=== PATIENT | female | born 1995 | race Caucasian/White ===

== ENCOUNTER 2024-08-30 19:27 | Emergency (ER) | payer OTHER, SELFPAY ==
[2024-08-30 19:31] VITALS: BP 140/96; PULSE 86; TEMP 36.7; O2SAT 100; BMI 36.8
--- NOTE | 2024-08-30 19:36 | PC.NURSE ---
States feels a bump on her upper/outer left gum line. Nothing noted with inspection
--- NOTE | 2024-08-30 19:38 | ED.DENTAL1 ---
HPI - Dental/Oral General Chief complaint: Dental/Oral Stated complaint: MOUTH PAIN Time Seen by Provider: 08/30/24 19:34 Source: patient Mode of arrival: walk-in Limitations: no limitations History of Present Illness HPI Narrative: dental pain past week. No obvious swelling. No problem swallowing. No fever or nausea Related Data Home Medications ?Medication ?Instructions ?Recorded ?Confirmed No Known Home Medications 08/30/24 08/30/24 Allergies Allergy/AdvReac Type Severity Reaction Status Date / Time No Known Drug Allergies Allergy Verified 08/30/24 19:34 Review of Systems ROS Status of ROS 10 or more systems reviewed and unremarkable except as noted in history and below PFSH PFSH Social History Little interest or pleasure in doing things: not at all Feeling down, depressed, or hopeless: not at all Exam Constitutional Vital Signs, click to edit/add: Last Vital Signs Temp 98.0 F 08/30/24 19:31 Pulse 86 08/30/24 19:31 Resp 16 08/30/24 19:31 BP 140/96 H 08/30/24 19:31 Pulse Ox 100 08/30/24 19:31 O2 Del Method Room Air 08/30/24 19:31 Common normals: no apparent distress, average body habitus, oriented x3, no limitations, healthy appearing, alert and well nourished [facility] Common normals: normocephalic and head/scalp atraumatic Other: focal area of swelling left upper posterior molar. site focally tender and reproduces symptoms Eye Common normals: EOMs intact bilaterally Respiratory Common normals: normal respiratory effort, no retractions, no use of accessory muscles and clear to auscultation bilaterally Cardio Common normals: regular rate, regular rhythm, S1 normal heart sound and S2 normal heart sound Extremity Common normals: normal to inspection and full ROM Neuro Common normals: oriented x3, CN's II-XII intact bilaterally, moves all extremities and no focal motor deficits Psych Appearance: grossly normal Course Vital Signs Vital signs: Vital Signs Temperature 98.0 F 08/30/24 19:31 Pulse Rate 86 08/30/24 19:31 Respiratory Rate 16 08/30/24 19:31 Blood Pressure 140/96 H 08/30/24 19:31 Pulse Oximetry 100 08/30/24 19:31 Oxygen Delivery Method Room Air 08/30/24 19:31 Temperature 98.0 F 08/30/24 19:31 Pulse Rate 86 08/30/24 19:31 Respiratory Rate 16 08/30/24 19:31 Blood Pressure 140/96 H 08/30/24 19:31 Pulse Oximetry 100 08/30/24 19:31 Oxygen Delivery Method Room Air 08/30/24 19:31 MDM - Dental/Oral MDM Narrative Medical decision making narrative: patient is stable clinically. Presents with focal area of early abscess left upper posterior molar. Patient informed of the findings and treatment plan. Given dose of Augmentin and discharged with a prescription of Augmentin Discharge Plan Discharge Chief Complaint: Dental/Oral Clinical Impression: Dental abscess Patient Disposition: Home, Self-Care Prescriptions / Home Meds: No Action No Known Home Medications Print Language: Macedonian Instructions: Dental Abscess (ED) Additional Instructions: follow up with your dentist later this week or next week. Use ibuprofen for pain Referrals: Physician,Non-Staff, MD [Primary Care Provider] - 1 week
[2024-08-30] MEDS: AMOXICILLIN/POT CLAV 875-125 MG TABLET 1 TAB PO (19:57)
[2024-08-30] MEDS: LIDOCAINE VISCOUS 2% 15 ML SOLUTION PO (19:57)
== END 2024-08-30 20:01 | disposition home or self-care (01) ==
PROVIDERS: Emergency Provider Internal Medicine
DX: K04.7 Periapical abscess without sinus (principal)
CPT/HCPCS: 99283

== ENCOUNTER 2025-01-03 12:51 | Outpatient (OUT) | payer OTHER, SELFPAY ==
--- OUTSIDE RECORDS SUMMARY | 2025-01-03 12:53 | XMS_ITS | Encounter Summary ---
Author Organization [facility] Address [id number] [address] [place] [address] Care Team Providers Care Biomedical Manager Name Role Phone No Pcp, No Pcp Primary Care Provider Unavailabl e Reason for Visit * Reason Onset Date Comments Med Refill 06/21/2019 Encounter Details Date Type Department Care Team (Late st Contact Info) Description 06/21/2019 Refill [facility] [address] [place] [address] [place] [phone] Gato Sanchez CMA Social History Tobacco Use Types Packs/Day Years Used Date Smoking Tobacco: Never Smokeless Tobacco: Never Alcohol Use Standard Drinks/Week Comments No 0 (1 standard drink = 0.6 oz pur e alcohol) Social Connection and Isolation Panel [NHANES] A nswer Date Recorded Frequency of Communication with Friends and Fami ly Three times a week 01/19/2019 Frequency of Social Gatherin gs with Friends and Family Twice a week 01/19/2019 Attends Faith Services Never 01/19 Active Member of Clubs or Organizations No 01/19/2019 Attends Club or Organization Meetings Never 01/19/2019 Marital Status Never 01/19/2019 AUDIT-C Answer Date Recorded Frequency of Alcohol Consumption Never 01/19/2019 Average Number of Drinks 1 or 2 019 Frequency of Binge Drinking Never 12/23 Overall Financial Resource Strain (CARDIA) Answe r Date Recorded Difficulty of Paying Living Expenses Not hard at all 01/19/2019 PHQ-2 Answer Date Recorded PHQ-2 Score 0 01/05/2019 [facility] [place] of Occupat ional Health - Occupational Stress Questionnaire Answer Date Recorded Feeling of Stress Only a little 01/19/2019 Exercise Vital Sign Answer Date Recorde d Days of Exercise per Week 7 days 2018 Minutes of Exercise per Session 10 min 01/19/2019 PRAPARE - Transportation Answer Date Re corded Lack of Transportation (Medical) No 01/19/2019 Lack of Transportation (Non-Medical) No 01/19/2019 Childcare Answer Date Recorded Childcare No 01/19/2019 Employment Answer Date Recorded Employment No 01/19/2019 Education Answer Date Recorded What is the highest level of school you have completed or the highest degree you have received? 12th grade 01/19/2019 Comments No Sex and Gender Information Value Date Recorded Sex Assigned at Not on file Legal Sex Female 11:57 AM EDT Gender Identity Not on file Sexual Orientation Not on file documented as of this encounter Plan of Treatment Not on file documented as of this encounter Visit Diagnoses Not on filedocumented in this encounter Additional Health Concerns Infection Onset Date Last Indicated Resolved Time Respiratory Rule-Out 09/15/2019 09/15/2019 020 4:51 PM EDT Respiratory Rule-Out 10/06/2020 10/06/2020 021 9:08 PM EDT COVID-19 Rule-Out 10/06/2020 10/06/2020 10/06/2020 9:10 PM EDT COVID-19 Rule-Out 10/06/2020 10/06/2020 10/07/2020 10:19 AM EDT COVID-19 Rule-Out 06/25/2021 06/25/2021 06/25/2021 4:35 PM EST COVID-19 Rule-Out 07/27/2023 07/27/2023 07/27/2023 7:28 PM EST Influenza 07/27/2023 07/27/2023 08/03/2023 11:1 3 PM EST Assessment Noted Time PHQ-9 Depression Total Score: 0 01/20/20 19 2:49 PM EDT A Body Mass Index follow-up plan has been documented for the patient 03/29/2019 2:13 PM EDT documented as of this encounter Care Teams Biomedical Manager Relationship Specialty Start Date End Date No Pcp, [place] [address] PCP - General Family Medicine 08/04/23 documented as of this encounter
--- OUTSIDE RECORDS SUMMARY | 2025-01-03 12:53 | XMS_ITS | Clinical Summary ---
Author Organization [facility] Address [address] [place] [address] Care Team Providers Care Metal Furniture Glazier Name Role Phone Unavailable Primary Care Provider Unavailabl e Social History Tobacco Use Types Packs/Day Years Used Date Smoking Tobacco: Never Assessed Comments Unknown Sex and Gender Information Value Date Recorded Sex Assigned at Not on file Legal Sex Female 11:16 PM EDT Gender Identity Not on file Sexual Orientation Not on file Last Filed Vital Signs Vital Sign Reading Time Taken Comments Blood Pressure - - Pulse - - Temperature - - Respiratory Rate - - Oxygen Saturation - - Inhaled Oxygen Concentration - - Weight 109 kg (241 lb) 08/02/2021 12:00 PM EST Height 167.6 cm (5' 6 ) 08/02/2021 12:00 PM EST Body Mass Index 38.9 08/02/2021 12:00 PM EST Plan of Treatment Not on file
--- OUTSIDE RECORDS SUMMARY | 2025-01-03 12:53 | XMS_ITS | Encounter Summary ---
Author Organization [facility] [employer] [facility] Address [id number] [address] [place] [address] Care Team Providers Care Drug Abuse Social Worker Name Role Phone No Pcp, No Pcp Primary Care Provider Unavailabl e Encounter Details Date Type Department Care Team (Late st Contact Info) Description 10/06/2017 Telephone [facility] - Dept [address] [place] [phone] Michaela Licea, RN Social History Tobacco Use Types Packs/Day Years Used Date Smoking Tobacco: Never Smokeless Tobacco: Never Alcohol Use Standard Drinks/Week Comments No 0 (1 standard drink = 0.6 oz pur e alcohol) Comments No Sex and Gender Information Value Date Recorded Sex Assigned at Not on file Legal Sex Female 11:57 AM EDT Gender Identity Not on file Sexual Orientation Not on file documented as of this encounter Miscellaneous Notes * Note - Michaela Licea RN - 10/06/2017 11:20 AM EDT Attempt to call patient for follow up. No answer. No message left per patient's request. documented in this encounter Plan of Treatment Not on [...] 07/27/2023 07/27/2023 08/03/2023 11:1 3 PM EST documented as of this encounter Care Teams Drug Abuse Social Worker Relationship Specialty Start Date End Date No Pcp, [place] [address] PCP - General Family Medicine 08/04/23 documented as of this encounter
--- OUTSIDE RECORDS SUMMARY | 2025-01-03 12:53 | XMS_ITS | Encounter Summary ---
Author Organization [employer] [facility] [employer] Address [id number] [address] [place] [address] Care Team Providers Care Career Representative Name Role Phone No Pcp, No Pcp Primary Care Provider Unavailabl e Encounter Details Date Type Department Care Team (Late st Contact Info) Description 09/23/2019 Telephone [facility] [address] [place] [address] [address] [place] [phone] Shannan Montesinos, DEANGELO-SURVEY RESEARCH PROFESSOR [address] [place] [address] Social History Tobacco Use Types Packs/Day Years [...] and Family Twice a week 01/19/2019 Attends Hinduism Services Never 01/19 Active Member of Clubs [...] Answer Date Recorded PHQ-2 Score 0 01/05/2019 [facility] [place] of Occupat ional Health - Occupational Stress [...] on file Sexual Orientation Not on file COVID-19 Exposure Response Date Recorded In the last month, have you been in contact with someone who was confirmed or suspected to have Coronavirus / COVID-19? No / Unsure 09/15/2019 4:11 PM EDT documented as of this encounter Plan of Treatment Not on file documented as of this encounter Visit Diagnoses Not on filedocumented in this encounter Additional Health Concerns Infection Onset Date Last Indicated Resolved Time Respiratory Rule-Out 10/06/2020 10/06/2020 021 9:08 PM EDT COVID-19 Rule-Out 10/06/2020 10/06/2020 10/06/2020 9:10 PM EDT COVID-19 Rule-Out 10/06/2020 10/06/2020 10/07/2020 10:19 AM EDT COVID-19 Rule-Out 06/25/2021 06/25/2021 06/25/2021 4:35 PM EST COVID-19 Rule-Out 07/27/2023 07/27/2023 07/27/2023 7:28 PM EST Influenza 07/27/2023 07/27/2023 08/03/2023 11:1 3 PM EST Assessment Noted Time PHQ-9 Depression Total Score: 0 07/29/19 20 11:00 AM EST A Body Mass Index follow-up plan has been documented for the patient 03/29/2019 2:13 PM EDT documented as of this encounter Care Teams Career Representative Relationship Specialty Start Date End Date No Pcp, [place] [address] PCP - General Family Medicine 08/04/23 documented as of this encounter
--- OUTSIDE RECORDS SUMMARY | 2025-01-03 12:53 | XMS_ITS | Encounter Summary ---
Author Organization [employer] Address [id number] [address] [place] [address] Care Team Providers Care Cook Fish Eggs Name Role Phone No Pcp, No Pcp Primary Care Provider Unavailabl e Reason for Visit * Reason Comments Med Refill Encounter Details Date Type Department Care Team (Late st Contact Info) Description 10/10/2019 Refill [facility] [address] [place] [address] [place] [phone] Shannan Montesinos, DISPLAY TRIMMER-[facility] [address] [place] [address] Anxiety Social History Tobacco Use Types Packs/Day Years [...] and Family Twice a week 01/19/2019 Attends Bahai Services Never 01/19 Active Member of Clubs [...] Answer Date Recorded PHQ-2 Score 0 01/05/2019 [facility] [place] of Occupat ional Health - Occupational Stress [...] documented as of this encounter Visit Diagnoses Diagnosis Anxiety Anxiety state, unspecified documented in this encounter Additional Health Concerns Infection [...] documented as of this encounter Care Teams Cook Fish Eggs Relationship Specialty Start Date End Date No [place]cp[place] [address] PCP - General Family Medicine 08/04/23 documented as of this encounter
--- OUTSIDE RECORDS SUMMARY | 2025-01-03 12:53 | XMS_ITS | Encounter Summary ---
Author Organization [employer] [facility] [employer] Address [id number] [address] [place] [address] Care Team Providers Care Health Unit Clerk Name Role Phone No Pcp, No Pcp Primary Care Provider Unavailabl e Reason for Visit * Reason Comments Med Refill Encounter Details Date Type Department Care Team (Late st Contact Info) Description 04/19/2020 Refill [facility] [address] [place] [address] [place] [phone] Shannan Montesinos, BATCH AND FURNACE OPERATOR-[facility] [address] [place] [id number] Intractable migraine without aura and with status migrainosus Social History Tobacco Use Types Packs/Day Years [...] and Family Twice a week 01/19/2019 Attends Sabianist Services Never 01/19 Active Member of Clubs [...] Answer Date Recorded PHQ-2 Score 0 01/05/2019 [facility] [place] of Occupat ional Health - Occupational Stress [...] as of this encounter Miscellaneous Notes * Telephone Encounter - DEX Lyle - 04/19/2020 12:20 AM EDT This medication was refilled two weeks ago. How much is the patient using? Is she out of this medication? If so, she will need to come in and be reevaluated and she should bring her headache diary with her. * Telephone Encounter - Marilyn Peacock CMA - 04/19/2020 12:20 AM EDT Lvm, patient to return my call. documented in this encounter Plan of Treatment Not on file documented as of this encounter Visit Diagnoses Diagnosis Intractable migraine without aura and with status migrainosus documented in this encounter Additional Health Concerns [...] Time PHQ-9 Depression Total Score: 0 07/29/19 11:00 AM EST A Body Mass Index follow-up plan has been documented for the patient 03/29/2019 2:13 PM EDT documented as of this encounter Care Teams Health Unit Clerk Relationship Specialty Start Date End Date No Pcp, No Pcp [place] [address] PCP - General Family Medicine 08/04/23 documented as of this encounter
--- OUTSIDE RECORDS SUMMARY | 2025-01-03 12:53 | XMS_ITS | Encounter Summary ---
Author Organization [employer] Address [id number] [address] [place] [address] Care Team Providers Care Semiconductor Engineer Name Role Phone No Pcp, No Pcp Primary Care Provider Unavailabl e Reason for Visit * Reason Comments Med Refill Encounter Details Date Type Department Care Team (Late st Contact Info) Description 04/29/2019 Refill [facility] [address] [place] [address] [place] [phone] Shannan Montesinos, RICE FARMWORKER-[facility] [address] [place] [id number] Intractable migraine without aura and with status [...] and Family Twice a week 01/19/2019 Attends Rastafari Services Never 01/19 Active Member of Clubs [...] Answer Date Recorded PHQ-2 Score 0 01/05/2019 [facility] [place] of Occupat ional Health - Occupational Stress [...] documented as of this encounter Care Teams Semiconductor Engineer Relationship Specialty Start Date End Date No Pcp, [place] [address] PCP - General Family Medicine 08/04/23 documented as of this encounter
--- OUTSIDE RECORDS SUMMARY | 2025-01-03 12:54 | XMS_ITS | Encounter Summary ---
Author Organization [employer] Address [id number] [address] [place] [address] Care Team Providers Care Surgical Supplies Sterilizer Name Role Phone No Pcp, No Pcp Primary Care Provider Unavailabl e Encounter Details Date Type Department Care Team (Late st Contact Info) Description 01/07/2022 Orders Only [facility] [address] [place] [address] [place] [phone] External, Scanning Provider Social History Tobacco Use Types Packs/Day Years [...] and Family Twice a week 01/19/2019 Attends Episcopal Services Never 01/19 Active Member of Clubs [...] at all 01/19/2019 PHQ-2 Answer Date Recorded Total Score 4 11/09/2021 [facility] [place] of Occupat ional Health - Occupational Stress [...] Employment Answer Date Recorded Employment No 01/19/2019 Purpose - Life Answer Date Recorded Purpose and direction in life Unknown Education Answer Date Recorded What is the [...] on file documented as of this encounter Procedures Procedure Name Priority Date/Time Associated Diagnosis Comments EMG WITH NCV Routine 12/25/2021 documented in this encounter Results * EMG With NCV (12/25/2021) us Scanning Provider External NEUROLOGY ORDERABLES Final Result MANUALLY TRANSCRIBED RESULTS documented in this encounter Visit Diagnoses Not on filedocumented in this encounter Additional Health Concerns Infection Onset Date Last Indicated Resolved Time COVID-19 Rule-Out 07/27/2023 07/27/2023 07/27/2023 7:28 PM EST Influenza 07/27/2023 07/27/2023 08/03/2023 11:1 3 PM EST Assessment Noted Time PHQ-9 Depression Total Score: 4 11/10/19 22 9:33 AM EDT A Body Mass Index follow-up plan has been documented for the patient 11/09/2021 10:40 AM EDT documented as of this encounter Care Teams Surgical Supplies Sterilizer Relationship Specialty Start Date End Date No Pcp, No Pcp GLORIA Donis [address] PCP - General Family Medicine 08/04/23 documented as of this encounter
--- OUTSIDE RECORDS SUMMARY | 2025-01-03 12:54 | XMS_ITS | Encounter Summary ---
Author Organization [employer] Address [id number] [address] [place] [address] Care Team Providers Care Youth Probation Officer Name Role Phone No Pcp, No Pcp Primary Care Provider Unavailabl e Reason for Visit * Reason Onset Date Comments MR Lft Foot 10/31/2023 Encounter Details Date Type Department Care Team (Late st Contact Info) Description 10/31/2023 Telephone [facility] [address] [place] [phone] Kassi Morris MR Lft Foot Social History Tobacco Use Types Packs/Day Years [...] 01/19/2019 PHQ-2 Answer Date Recorded Total Score 12 04/22/2022 [place] of Occupat ional Health - Occupational Stress [...] Employment Answer Date Recorded Employment No 01/19/2019 Hunger Screening Answer Date Recorded Within the past 12 months we worried whether our food would run out before we got money to buy more. Never True 10/17/2023 Within the past 12 months th e food we bought just didn't last and we didn't have money to get more. Never True 10/17/2023 Purpose - Life Answer Date Recorded Purpose [...] encounter Miscellaneous Notes * Telephone Encounter - Kassi Morris - 10/31/2023 9:51 AM EDT Sean Rondon, stated MR LEFT FOOT WWO CONTRAST has been denied and a [id number] is needed. end of day 11/03/23. [facility]#: [phone] Case#: [id number] * Telephone Encounter - Sunshine Madden MD - 10/31/2023 9:51 AM EDT I believe the patient was able to get the MRI. documented in this encounter Plan of Treatment Not on file documented as of this encounter Visit Diagnoses Not on filedocumented in this encounter Additional Health Concerns Assessment Noted Time PHQ-9 Depression Total Score: 12 022 11:27 AM EDT A Body Mass Index follow-up plan has been documented for the patient 10/17/2023 2:26 PM EDT documented as of this encounter Care Teams Youth Probation Officer Relationship Specialty Start Date End Date No Pcp, [place] [address] PCP - General Family Medicine 08/04/23 documented as of this encounter
--- OUTSIDE RECORDS SUMMARY | 2025-01-03 12:54 | XMS_ITS | Encounter Summary ---
Author Organization [employer] Address [id number] [address] [place] [address] Care Team Providers Care Battery Charger Conveyor Line Name Role Phone No Pcp, No Pcp Primary Care Provider Unavailabl e Reason for Visit * Reason Comments Med Refill Encounter Details Date Type Department Care Team (Late st Contact Info) Description 04/01/2022 Refill [facility] [address] [place] [address] [place] [phone] Shannan Montesinos, COLLAR TAILOR-[facility] [address] [place] [phone] Anxiety and depression Social History Tobacco Use Types Packs/Day Years [...] and Family Twice a week 01/19/2019 Attends Yarsanism Services Never 01/19 Active Member of Clubs [...] Answer Date Recorded Total Score 4 11/09/2021 [facility] - Occupational Stress Questionnaire Answer Date Recorded [...] * Telephone Encounter - DEX Lyle - 04/01/2022 12:22 AM EDT Patient needs to schedule an appointment for medication refills documented in this encounter Plan of Treatment Not on file documented as of this encounter Visit Diagnoses Diagnosis Anxiety and depression documented in this encounter Additional Health Concerns [...] documented as of this encounter Care Teams Battery Charger Conveyor Line Relationship Specialty Start Date End Date No Pcp, [place] [address] PCP - General Family Medicine 08/04/23 documented as of this encounter
--- OUTSIDE RECORDS SUMMARY | 2025-01-03 12:54 | XMS_ITS | Encounter Summary ---
Author Organization [employer] Address [id number] [address] [place] [address] Care Team Providers Care Market Development Trainer Name Role Phone No Pcp, No Pcp Primary Care Provider Unavailabl e Reason for Visit * Reason Comments Med Refill Encounter Details Date Type Department Care Team (Late st Contact Info) Description 04/02/2022 Refill [facility] [address] [place] [address] [place] [phone] Shannan Montesinos, HANDBAG STITCHER-[facility] [address] [place] [phone] Epigastric pain; Abdominal pain, RLQ; LUQ abdominal pain Social History Tobacco Use Types Packs/Day Years [...] and Family Twice a week 01/19/2019 Attends Buddhism Services Never 01/19 Active Member of Clubs [...] Answer Date Recorded Total Score 4 11/09/2021 [facility] [place] of Occupat ional Health - Occupational Stress [...] encounter Miscellaneous Notes * Telephone Encounter - Srini Hammond CMA - 04/02/2022 12:20 AM EDT Patient was called, she has an appointment on 04/11/2022 and is fine with waiting until then to possibly have a refill submitted. documented in this encounter Plan of Treatment Not on file documented as of this encounter Visit Diagnoses Diagnosis Epigastric pain Abdominal pain, epigastric Abdominal pain, RLQ LUQ abdominal pain Abdominal pain, left upper quadrant documented in this encounter Additional Health Concerns Infection Onset Date Last Indicated Resolved Time COVID-19 Rule-Out 07/27/2023 07/27/2023 07/27/2023 7:28 PM EST Influenza 07/27/2023 07/27/2023 08/03/2023 11:1 3 PM EST Assessment Noted Time PHQ-9 Depression Total Score: 4 11/10/19 9:33 AM EDT A Body Mass Index follow-up plan has been documented for the patient 11/09/2021 10:40 AM EDT documented as of this encounter Care Teams Market Development Trainer Relationship Specialty Start Date End Date No Pcp, [place] [address] PCP - General Family Medicine 08/04/23 documented as of this encounter
--- OUTSIDE RECORDS SUMMARY | 2025-01-03 12:54 | XMS_ITS | Encounter Summary ---
Author Organization [employer] Address [id number] [address] [place] [address] Care Team Providers Care Radial Router Operator Name Role Phone No Pcp, No Pcp Primary Care Provider Unavailabl e Encounter Details Date Type Department Care Team (Late st Contact Info) Description 11/09/2021 Telephone [facility] [address] [place] [address] Farida Galo Social History Tobacco Use Types Packs/Day Years [...] and Family Twice a week 01/19/2019 Attends Hindu Services Never 01/19 Active Member of Clubs [...] Answer Date Recorded Total Score 4 11/09/2021 [facility] [place] of Occupat ional Health - Occupational Stress [...] Exposure Response Date Recorded In the last 10 days, have yo u been in contact with someone who was confirmed or suspected to have Coronavirus/COVID-19? No / Unsure 11/09/2021 9:26 AM EDT documented as of this encounter Miscellaneous Notes * Telephone Encounter - Farida Galo - 11/09/2021 11:08 AM EDT Patient called our office stating she obtained the fax number for the EMG order ot be sent to per her conversation with Dr. Madden at her 11/09/21 appointment. Fax number is [phone] td [place] Please advise and callback if needed. * Telephone Encounter - Melinda Esparza CMA - 11/09/2021 11:08 AM EDT Faxed over to fax number given, thanks. documented in this encounter Plan of Treatment [...] documented as of this encounter Care Teams Radial Router Operator Relationship Specialty Start Date End Date No Pcp, [place] [address] PCP - General Family Medicine 08/04/23 documented as of this encounter
--- OUTSIDE RECORDS SUMMARY | 2025-01-03 12:54 | XMS_ITS | Clinical Summary ---
Author Organization [employer] Address [id number] [address] [place] [address] Care Team Providers Care Drafter Apprentice Name Role Phone No Pcp, No Pcp Primary Care Provider Unavailabl e Allergies No known active allergies Medications dicyclomine (BENTYL) 20 mg tabletIndication s:Epigastric pain,Abdominal pain, RLQ,LUQ abdominal pain TAKE 1 TABLET BY MOUTH IN THE MORNING, AT NOON, IN THE EVENING AND AT BEDTIME 120 tablet 1 2 Active SUMAtriptan (IMITREX) 50 mg tabletIndication s:Intractable migraine without aura and with status migrainosus May repeat in 2 hours if unresolved. Do not exceed 200 mg in 24 hours. 9 tablet 5 2 Active PARoxetine (PAXIL) 40 mg tabletIndication s:Anxiety and depression Take 1 tablet (40 mg total) by mouth in the morning. 90 tablet 1 2 Active propranoloL (INDERAL) 20 mg tabletIndication s:Intractable migraine without aura and with status migrainosus TAKE 1 TABLET BY MOUTH 2 TIMES A DAY FOR 180 DAYS. 180 tablet 1 2 Active hydrOXYzine (ATARAX) 25 mg tabletIndication s:Anxiety and depression TAKE 1 TABLET BY MOUTH EVERY 6 HOURS NEEDED FOR ANXIETY 120 tablet 3 Active diclofenac sodium (VOLTAREN) 1 % gelIndications:I njury of left foot, sequela,Pain in joint, foot, left,Neuritis of left foot,Nerve pain Apply 2 g topically 3 (three) times a day as needed (CC: left foot swelling and pain). CC: left foot swelling and pain 100 g 3 3 Active albuterol (PROVENTIL HFA) 90 mcg/actuation inhalerIndicatio ns:Mild intermittent asthma without complication Inhale 2 puffs as needed for wheezing. 18 g 4 Active benzonatate (TESSALON PERLES) 100 mg capsule Take 1 capsule (100 mg total) by mouth 3 (three) times a day as needed for cough. 21 capsule 4 Active capsaicin (CAPZASIN-HP) 0.1 % creamIndications :Neuritis of left foot Apply 1 Application topically 3 (three) times a day. Apply to left foot for symptomatic pain relief. 42.5 g 2 4 Active tiZANidine (ZANAFLEX) 2 mg tabletIndication s:Neuritis of left foot,Chronic pain in left foot,Hip pain Take 1 tablet (2 mg total) by mouth 2 (two) times a day as needed for muscle spasms (CC: severe left foot breakthrough pain). 60 tablet 1 4 Active pregabalin (LYRICA) 50 mg capsuleIndicatio ns:Neuritis of left foot,Nerve pain Take 2 capsules (100 mg total) by mouth in the morning and 2 capsules (100 mg total) before bedtime. 120 capsule 5 4 Active Active Problems Problem Noted Date Diagnosed Date Neuritis of left foot 11/09/2021 Nerve pain 11/09/2021 Injury of left foot 11/09/2021 Pain in joint, foot, left 11/09/2021 Depression 11/09/2021 Anxiety 11/09/2021 Abnormal uterine contraction 10/03/2017 History of delivery, currently 09/25/2017 History of premature rupture of membranes (PROM) in previous , currently 09/25/2017 Susceptible to Varicella (no n-immune), currently in third trimester 09/25/2017 Cystic fibrosis carrier 09/25/2017 History of pre-eclampsia in prior , currently 09/25/2017 uterine contractions, antepartum, third trimester 09/25/2017 Immunizations Immunization Administration Dates Next Due COVID-19, mRNA, LNP-S, PF, 100mcg/0.5mL Dose 05/24/2021 MMR 10/05/2017(Deferred: Other - IMM UNE) Tdap 10/05/2017(), 018(Deferred: - PT HAD WITH LAST ) Varicella 10/05/2017() Family History Medical History Relation Name Comments Migraines Brother Depression Father Migraines Father Migraines Mother Depression Paternal Grandmother Parkinsonism Paternal Grandmother Relation Name Status Comments Brother Father Mother Paternal Grandmother Social History Tobacco Use Types Packs/Day Years Used Date Smoking Tobacco: Never Smokeless Tobacco: Never Tobacco Cessation:Counseling Given: Not Answered Alcohol Use Standard Drinks/Week Comments No 0 (1 standard drink = 0.6 oz pur e alcohol) Social Connection and Isolation Panel [NHANES] A nswer Date Recorded Frequency of Communication with Friends and Fami ly Three times a week 01/19/2019 Frequency of Social Gatherin gs with Friends and Family Twice a week 01/19/2019 Attends Taoist Services Never 01/19 Active Member of Clubs [...] Answer Date Recorded Total Score 12 04/22/2022 [facility] of Occupat ional Health - Occupational Stress [...] Sign Reading Time Taken Comments Blood Pressure 127/91 10/17/2023 12:00 PM EDT Pulse 84 10/17/2023 12:00 PM EDT Temperature 36.9 C (98.4 F) 10/16/2023 10:00 AM EDT Respiratory Rate 20 10/16/2023 10:00 AM EDT Oxygen Saturation 99% 10/16/2023 10:00 AM EDT Inhaled Oxygen Concentration - - Weight 98.4 kg (217 lb) 10/27/2023 7:48 AM EDT Height 167.6 cm (5' 6 ) 10/17/2023 12:00 PM EDT Body Mass Index 35.02 10/17/2023 12:00 PM EDT Plan of Treatment Health Maintenance Due Date Last Done Comments Depression Screening 04/22/2023 04/22/2022 COVID-19 Vaccine (2 - 2023-2 5 season) 2024 05/24/2021 Adult BMI Screening 10/26/2024 10/27/2023 DTaP,Tdap and Td Vaccines (7 - Td or Tdap) 04/06/2025 04/06/2015, 01/30/2000, 10/17/1998, Additional history exists Tobacco Screening 06/28/2025 06/28/2024 Influenza Vaccine Discontinued 04/06/2015 Medical Devices Not on file Insurance [place] [employer] Advance Directives * Full Code (Latest Code Status on File) Date Activated Date Inactivated Comments 10/03/2017 9:38 AM 10/05/2017 5:13 PM Care Teams Drafter Apprentice Relationship Specialty Start Date End Date No Pcp, No Pcp GLORIA Donis [id number] PCP - General Family Medicine 08/04/23
--- OUTSIDE RECORDS SUMMARY | 2025-01-03 12:54 | XMS_ITS | Encounter Summary ---
Author Organization [employer] Address [id number] [address] [place] [address] Care Team Providers Care Biometrics Specialist Name Role Phone No Pcp, No Pcp Primary Care Provider Unavailabl e Reason for Visit * Reason Comments Med Refill Encounter Details Date Type Department Care Team (Late st Contact Info) Description 08/16/2021 Refill [facility] [address] [place] [address] [place] [phone] Shannan Montesinos, PERFORATOR OPERATOR [facility] [address] [place] [phone] Anxiety and depression Social History Tobacco Use [...] and Family Twice a week 01/19/2019 Attends Restorationist Services Never 01/19 Active Member of Clubs [...] 01/19/2019 PHQ-2 Answer Date Recorded Total Score 0 04/19/2021 [facility] of Occupat ional Health - Occupational Stress [...] Noted Time PHQ-9 Depression Total Score: 0 04/19/20 21 10:51 AM EDT A Body Mass Index follow-up plan has been documented for the patient 03/29/2019 2:13 PM EDT documented as of this encounter Care Teams Biometrics Specialist Relationship Specialty Start Date End Date No Pcp, [place] [address] PCP - General Family Medicine 08/04/23 documented as of this encounter
--- OUTSIDE RECORDS SUMMARY | 2025-01-03 12:54 | XMS_ITS | Encounter Summary ---
Author Organization [employer] Address [facility] [id number] [address] [place] [address] Care Team Providers Care Drawing Operator Name Role Phone No Pcp, No Pcp Primary Care Provider Unavailabl e Reason for Visit * Reason Onset Date Comments reschd 09/19/2021 Encounter Details Date Type Department Care Team (Late st Contact Info) Description 09/19[facility]2021 [facility] [address] [place] [address] Cindi Bran reschd Social History Tobacco Use Types Packs/Day Years [...] and Family Twice a week 01/19/2019 Attends Oriental Orthodox Services Never 01/19 Active Member of Clubs [...] 01/19/2019 PHQ-2 Answer Date Recorded Total Score 7 09/13/2021 [facility] of Occupat ional Health - Occupational Stress [...] suspected to have Coronavirus/COVID-19? No / Unsure 09/13/2021 10:05 AM EDT documented as of this encounter Miscellaneous Notes * Telephone Encounter - Cindi Bran - 09/19/2021 8:52 AM EDT Patient's appointment with Dr. Madden today 09/19/21 in [place] needs to be rescheduled to next available. Provider is out of office- left voicemail documented in this encounter Plan of Treatment Not on file documented as of this encounter Visit Diagnoses Not on filedocumented in this encounter Additional Health Concerns Infection Onset Date Last Indicated Resolved Time COVID-19 Rule-Out 07/27/2023 07/27/2023 07/27/2023 7:28 PM EST Influenza 07/27/2023 07/27/2023 08/03/2023 11:1 3 PM EST Assessment Noted Time PHQ-9 Depression Total Score: 7 09/14/19 10:14 AM EDT A Body Mass Index follow-up plan has been documented for the patient 03/29/2019 2:13 PM EDT documented as of this encounter Care Teams Drawing Operator Relationship Specialty Start Date End Date No Pcp, [place] [address] PCP - General Family Medicine 08/04/23 documented as of this encounter
--- OUTSIDE RECORDS SUMMARY | 2025-01-03 12:54 | XMS_ITS | Encounter Summary ---
Author Organization [employer] Address [id number] [address] [place] [address] Care Team Providers Care Porcelain Turner Name Role Phone No Pcp, No Pcp Primary Care Provider Unavailabl e Encounter Details Date Type Department Care Team (Late st Contact Info) Description 04/01/2022 Telephone [facility] [address] [place] [address] Farida Galo Social History Tobacco [...] and Family Twice a week 01/19/2019 Attends Uatsdin Services Never 01/19 Active Member of Clubs [...] Answer Date Recorded Total Score 4 11/09/2021 [facility] of Occupat ional Health - Occupational Stress [...] * Telephone Encounter - Farida Galo - 04/01/2022 1:48 PM EDT Patient called our office requesting a callback to discuss her EMG results. Please advise and callback. * Telephone Encounter - Sunshine Madden MD - 04/01/2022 1:48 PM EDT The EMG/NCS for the lower extremities was a normal study. Please have the patient see me to discussthe results and further plan in more detail. Thanks * Telephone Encounter - Cara Quintero CMA - 04/01/2022 1:48 PM EDT Please pass message thank you * Telephone Encounter - Melinda Esparza CMA - 04/01/2022 1:48 PM EDT Called patient and LVM to call back and scheduled a follow up to discuss in further detail the EMG results and to discuss a future plan of care. Please offer patient Mychart visit on Friday as that will be the soonest appointment. Thanks. documented in this encounter Plan of Treatment [...] documented as of this encounter Care Teams Porcelain Turner Relationship Specialty Start Date End Date No Pcp, [place] [address] PCP - General Family Medicine 08/04/23 documented as of this encounter
--- NOTE | 2025-01-03 13:55 | PM.CN ---
Consult Note: HPI Data of Consult Patient: new to practice Consult date: 01/03/25 Requesting Physician: Alonzo Ayoub MD Primary Care Provider: Non-Staff Physician, Family Provider: BEN Consult Narrative Reason for consult: left foot pain Narrative: 29yof who presents for evaluation. has had left foot pain >7 years after dropping gallon of milk on it. has undergone therapy and various home exercise programs, without benefit. uses meloxicam, with some benefit. recently saw foot surgeon, who did not recommend surgery and suggested diagnosis of crps. endorses pain to touch, swelling, color changes, temperature changes, loss of hair growth of left foot. cc:: CC: Alonzo Ayoub MD Review of Systems ROS Status of ROS 10 or more systems reviewed and unremarkable except as noted in history and below [facility] Social History Little interest or pleasure in doing things: not at all Feeling down, depressed, or hopeless: not at all Meds Home Medications and Allergies Home Medications ?Medication ?Instructions ?Recorded ?Confirmed ?Type No Known Home Medications 08/30/24 08/30/24 History Allergies Allergy/AdvReac Type Severity Reaction Status Date / Time No Known Drug Allergies Allergy Verified 08/30/24 19:34 Exam Narrative Exam Narrative: Psych-alert and oriented x 3.? Attentive and appropriate, constitutionally normal, displays normal mood and affect per situation.? There are no obvious deficits in memory, reasoning, or intellect. Examination of the left lower extremity reveals notable hyperpathia and allodynia.? Notable atrophy and diffuse weakness present in the extremity.? There is notable shiny skin with hair loss and abnormal hair growth denoting trophic changes presently.? Asymmetric color and temperature changes are present which denotes sudomotor changes.? Decreased range of motion and strength is noted in the extremity.? Coordination remains intact.? Gait remains non-antalgic. Assessment and Plan Assessment and Plan (1) Complex regional pain syndrome i of left lower limb: Plan 29yof who presents for evaluation. failed conservative measures, as noted. suspect that given her mechanism of injury and constellation of symptoms, she has developed left lower extremity crps. discussed that given her failure to respond to more conservative measures, prudent to attempt left lumbar sympathetic nerve block x2 under fluoroscopic guidance. will utilize ivcs due to anxiety. she is in agreement. meds reviewed. will have her trial gabapentin 300mg tid. follow up after procedure.
== END 2025-01-03 12:52 | disposition home or self-care (01) ==
LOC: PM 12:51
PROVIDERS: Visit Provider Anesthesiology
DX: G90.522 Complex regional pain syndrome I of left lower limb (principal)
CPT/HCPCS: G0463

== ENCOUNTER 2025-01-31 07:38 | Day surgery (SDC) | payer OTHER, SELFPAY ==
--- OUTSIDE RECORDS SUMMARY | 2025-01-31 07:43 | XMS_ITS | CCD ---
Author Organization [facility] Inform ion Partnership [facility] Care Team Providers Care Library Specialist Name Role Phone MEHRDAD ZAPATA Admitting Unavailable MEHRDAD ZAPATA Attending Unavailable MISC, DOCTOR Primary Care Unavailable YEVGENIY BENITEZ Consulting Unavailable MEHRDAD ZAPATA Consulting Unavailable Cassie Guzman Primary Care Physician Cassie Harrison Unavailable Unavailable NO PCP, NO PCP Primary Care Unavailable MARYANNE, EHAD Attending Unavailable NO PCP, NO PCP Primary Care Unavailable MARYANNE EHAD Attending Unavailable MARYANNE, EHAD Referring Unavailable NO PCP, NO PCP Primary Care Unavailable MARYANNE, EHAD Attending Unavailable NO PCP, NO PCP Primary Care Unavailable KAYLEIGH LOZADA Attending Unavailable NO PCP, NO PCP Primary Care Unavailable DAMON RUTH Attending UnavailDAMON Phan Referring Unavailabl e NO PCP, NO PCP Primary Care Unavailable NO PCP, NO PCP Primary Care Unavailable MILES BRYSON Attending Unavailable No Pcp, No Pcp Primary Care Provider Unavailabl perry Ayoub MD, Alonzo Mathur Attending Unavailable Medications Current Medications Medication Drug Class(es) Dates Sig (Normalized) Sig (Original) [id number] 200 actuat albuterol 0.09 mg/actuat metered dose inhaler (3 sources) beta2-Adrenergic Agonist Start: 07-27-2023 albuterol (PROVENTIL HFA) 90 mcg/actuation inhaler Indications: Mild intermittent asthma without complication Inhale 2 puffs as needed for wheezing. 18 g 07/27/2023 Active albuterol sulfat e HFA 90 mcg/actuation aerosol inhaler inhale 2 puffs by inhalation route prn for wheezing benzonatate 100 mg oral capsule (2 sources) Non-narcotic Antitussive Start: 02-12-2024 take 1 capsule by mouth three times daily as needed for cough benzonatate (TESSALON PERLES) 100 mg capsule Take 1 capsule (100 mg total) by mouth 3 (three) times a day as needed for cough. 21 capsule 08/04/2023 Active capsaicin 1 mg/ml topical cream (2 sources) Start: 10-17-2023 capsaicin (CAPZASIN-HP) 0.1 % cream Indications: Neuritis of left foot Apply 1 Application topically 3 (three) times a day. Apply to left foot for symptomatic pain relief. 42.5 g 2 10/17/2023 Active diclofenac sodium 0.01 mg/mg topical gel (3 sources) Nonsteroidal Anti-inflammatory Drug Start: 10-07-2022 diclofenac sodium (VOLTAREN) 1 % gel Indications: Injury of left foot, sequela , Pain in joint, foot, left , Neuritis of left foot , Nerve pain Apply 2 g topically 3 (three) times a day as needed (CC: left foot swelling and pain). CC: left foot swelling and pain 100 g 3 10/07/2022 Active diclofenac 1 % t opical gel apply to affected area(s) by topical route 2 times a day dicyclomine hydrochloride 20 mg oral tablet (3 sources) Anticholinergic Start: 01-28-2022 take 1 tablet by mouth at bedtime dicyclomine (BENTYL) 20 mg tablet Indications: Epigastric pain , Abdominal pain, RLQ , LUQ abdominal pain TAKE 1 TABLET BY MOUTH IN THE MORNING, AT NOON, IN THE EVENING AND AT BEDTIME 120 tablet 1 01/28/2022 Active take 1 tablet by mouth four time s daily dicyclomine 20 mg tablet take 1 tablet (20 mg) by oral route 4 times per day gabapentin 300 mg oral capsule (1 source) Anti-epileptic Agent Start: 10-16-2023 End: 10-19-2023 take 1 capsule by mouth three times daily gabapentin (NEURONTIN) 300 mg capsule Indications: Foot pain, left Take 1 capsule (300 mg total) by mouth 3 (three) times a day for 3 days. 9 capsule 10/16/2023 10/19/2023 Active hydrOXYzine hydrochloride 25 mg oral tablet (3 sources) Antihistamine Start: 08-01-2022 take 1 tablet by mouth every six hours as needed for anxiety hydrOXYzine (ATARAX) 25 mg tablet Indications: Anxiety and depression TAKE 1 TABLET BY MOUTH EVERY 6 HOURS NEEDED FOR ANXIETY 120 tablet 08/01/2022 Active take 1 tablet by [facility] four times daily as needed hydroxyzine HCl 25 mg tablet take 1 tabl et (25 mg) by oral route 4 times per day as needed PARoxetine hydrochloride 40 mg oral tablet (3 sources) Serotonin Reuptake Inhibitor Start: 04-22-2022 take 1 tablet by mouth in the morning PARoxetine (PAXIL) 40 mg tablet Indications: Anxiety and depression Take 1 tablet (40 mg total) by mouth in the morning. 90 tablet 1 04/22/2022 Active take 1 tablet by mouth once maya y paroxetine 40 mg tablet take 1 tablet (40 mg) by oral route once daily pregabalin 50 mg oral capsule (3 sources) Start: 03-05-2024 take 2 capsules by mouth in the morning, then take 2 capsules by mouth at bedtime pregabalin (LYRICA) 50 mg capsule Indications: Neuritis of left foot , Nerve pain Take 2 capsules (100 mg total) by mouth in the morning and 2 capsules (100 mg total) before bedtime. 120 capsule 5 03/05/2024 Active Start: 04-10-2022 End: 10-17-2023 take 2 capsules by mouth three times daily pregabalin (LYRICA) 50 mg capsule Indications: Injury of left foot, sequela , Pain in joint, foot, left , Neuritis of left foot , Nerve pain Take 2 capsules (100 mg total) by mouth 3 (three) times a day. 180 capsule 3 04/10/2022 10/17/2023 Discontinued (Discontinued by another clinician) Start: 12-25-2021 take 1 capsule by mo [facility] three times daily as needed pregabalin 50 mg capsule 12/25/2021 Take 1 capsule by mouth 3 times daily as needed propranolol hydrochloride 20 mg oral tablet (3 sources) beta-Adrenergic Jez Start: 04-28-2022 take 1 tablet by mouth twice daily propranoloL (INDERAL) 20 mg tablet Indications: Intractable migraine without aura and with status migrainosus TAKE 1 TABLET BY MOUTH 2 TIMES A DAY FOR 180 DAYS. 180 tablet 1 04/28/2022 Active take 1 tablet by mouth twice jenn ly propranolol 20 mg tablet take 1 tablet by oral route 2 times a day SUMAtriptan 50 mg oral tablet (3 sources) Serotonin-1b and Serotonin-1d Receptor Agonist Start: 04-22-2022 SUMAtriptan (IMITREX ) 50 mg tablet Indications: Intractable migraine without aura and with status migrainosus May repeat in 2 hours if unresolved. Do not exceed 200 mg in 24 hours. 9 tablet 5 04/22/2022 Active take 1 tablet by mouth once Imit anupama 50 mg tablet take 1 tablet (50 mg) by oral route once with fluids as early as possible after the onset of a migraine attack;may repeat after 2 hours if headache returns, not to exceed 200mg in 24hrs tiZANidine 2 mg oral tablet (4 sources) Central alpha-2 Adrenergic Agonist Start: 10-17-2023 take 1 tablet by mouth twice daily as needed for muscle spasms tiZANidine (ZANAFLEX) 2 mg tablet Indications: Neuritis of left foot , Chronic pain in left foot , Hip pain Take 1 tablet (2 mg total) by mouth 2 (two) times a day as needed for muscle spasms (CC: severe left foot breakthrough pain). 60 tablet 1 10/17/2023 Active Start: 04-22-2022 End: 10-17-2023 take 1 tablet by mouth every six hours as needed for muscle spasms tiZANidine (ZANAFLEX) 2 mg tablet Indications: Hip pain Take 1 tablet (2 mg total) by mouth every 6 (six) hours as needed for muscle spasms. 30 tablet 5 04/22/2022 10/17/2023 Discontinued (Reorder) take 1 capsule by mo [facility] every six hours as needed, then take 3 capsules by mouth every twenty-four hours as needed tizanidine 2 mg capsule take 1 capsule (2 mg) by oral route every 6 hours as needed not to exceed 3 doses in 24 hours Problems Active Problems Problem Classification Problem Date Documented Date Episodic/Chronic Anxiety disorders (5 sources) Anxiety disorder, unspecified; Translations: [Anxiety] Onset: 11-09-2021 03-05-2024 Chronic Asthma (4 sources) Unspecified asthma, uncomplicated; Translations: [Mild persistent asthma with (acute) exacerbation] Onset: 11-18-2017 Chronic Conditions associated with dizziness or vertigo (1 source) Unspecified disorder of vestibular function, unspecified ear Episodic Deficiency and other anemia (1 source) Anemia, unspecified Episodic Headache; including migraine (1 source) Migraine, unspecified, not intractable, without status migrainosus Chronic Mood disorders (4 sources) Depressive disorder; Translations: [Depression, unspecified depression type] Onset: 11-09-2021 03-05-2024 Chronic Other connective tissue disease (1 source) Pain in left leg Onset: 12-25-2021 Episodic Other connective tissue disease (4 sources) Neuralgia; Translations: [Neuralgia and neuritis, unspecified] Onset: 11-09-2021 03-05-2024 Episodic Other connective tissue disease (2 sources) Chronic pain of left foot; Translations: [Pain in left foot] 03-05-2024 Episodic Other female genital disorders (1 source) Personal history of pre-term labor Episodic Other infections; including parasitic (1 source) Personal history of other infectious and parasitic diseases Episodic Other nervous system disorders (2 sources) Unspecified mononeuropathy of left lower limb; Translations: [Unspecified mononeuropathy of left lower limb] Onset: 11-09-2021 Chronic Other nervous system disorders (1 source) Other chronic pain; Translations: [Other chronic pain] Onset: 10-17-2023 Chronic Other nervous system disorders (4 sources) Left foot neuritis; Translations: [Unspecified mononeuropathy of left lower limb] Onset: 11-09-2021 03-05-2024 Chronic Other nervous system disorders (1 source) Paresthesia of skin Episodic Other nervous system disorders (1 source) Other disturbances of skin sensation Onset: 12-25-2021 Episodic Other nervous system disorders (1 source) Unsteadiness on feet; Translations: [Unsteadiness on feet] Onset: 03-05-2024 Episodic Other nervous system disorders (2 sources) Abnormal gait; Translations: [Unsteadiness on feet] 03-05-2024 Episodic Residual codes; unclassified (1 source) Personal history of other complications of , childbirth and the puerperium Episodic Unclassified (1 source) Left Foot Pain Onset: 10-16-2023 Unclassified (1 source) Cold Like Symptoms Onset: 07-20-2023 Urinary tract infections (1 source) Urinary tract infection, site not specified Episodic Past or Other Problems Problem Classification Problem Date Documented Da te Episodic/Chronic Acute bronchitis (1 source) Acute bronchitis, unspecified; Translations: [Acute bronchitis, unspecified] Onset: 07-20-2023 Episodic Contraceptive and procreative management (4 sources) Encounter for sterilization; Translations: [ENCOUNTER FOR STERILIZATION] Onset: 11-12-2017 Episodic Early or threatened labor (2 sources) Premature uterine contraction; Translations: [False labor before 37 completed weeks of gestation, third trimester] Onset: 09-25-2017 09-25-2017 Episodic distress and abnormal forces of labor (2 sources) Abnormality of forces of labor; Translations: [Abnormality of forces of labor, unspecified] Onset: 10-03-2017 10-03-2017 Episodic Influenza (1 source) Influenza due to other identified influenza virus with other respiratory manifestations; Translations: [Influenza due to other identified influenza virus with other respiratory manifestations] Onset: 07-27-2023 Episodic Mood disorders (3 sources) Mood disorders; Translations: [Depression, unspecified] Onset: 11-09-2021 04-22-2022 Other complications of (2 sources) H/O: premature delivery; Translations: [Supervision of other high risk pregnancies, unspecified trimester] Onset: 09-25-2017 09-25-2017 Episodic Other complications of (2 sources) History of premature rupture of membranes; Translations: [Supervision of with other poor reproductive or obstetric history, unspecified trimester] Onset: 09-25-2017 09-25-2017 Episodic Other complications of (2 sources) Varicella non-immune; Translations: [Supervision of other high risk pregnancies, third trimester] Onset: 09-25-2017 09-25-2017 Episodic Other complications of (2 sources) History of pre-eclampsia; Translations: [Supervision of with other poor reproductive or obstetric history, unspecified trimester] Onset: 09-25-2017 09-25-2017 Episodic Other connective tissue disease (2 sources) Pain in left foot; Translations: [Pain in left foot] Onset: 10-16-2023 Episodic Other connective tissue disease (2 sources) Neuralgia and neuritis, unspecified; Translations: [Neuralgia and neuritis, unspecified] Onset: 11-09-2021 Episodic Other connective tissue disease (1 source) Foot pain Onset: 10-16-2023 Episodic Other injuries and conditions due to external causes (2 sources) Injury of left foot; Translations: [Unspecified injury of left foot, initial encounter] Onset: 11-09-2021 11-09-2021 Episodic Other lower respiratory disease (1 source) Cough Onset: 08-04-2023 Episodic Other lower respiratory disease (1 source) Wheezing; Translations: [Wheezing] Onset: 07-27-2023 Episodic Other non-traumatic joint disorders (1 source) Pain in unspecified hip; Translations: [Pain in unspecified hip] Onset: 10-17-2023 Episodic Other non-traumatic joint disorders (2 sources) Pain of joint of left foot; Translations: [Pain in left ankle and joints of left foot] Onset: 11-09-2021 11-09-2021 Episodic Other non-traumatic joint disorders (1 source) Hip pain; Translations: [Pain in unspecified hip] 10-17-2023 Episodic Residual codes; unclassified (1 source) Acquired absence of other specified parts of digestive tract; Translations: [ACQ ABSENCE OTH PART DIGESTV TRACT] Onset: 11-18-2017 Episodic Residual codes; unclassified (2 sources) Carrier of cystic fibrosis gene mutation; Translations: [Cystic fibrosis carrier] Onset: 09-25-2017 09-25-2017 Episodic Unclassified (2 sources) Onset: 10-17-2023 Resolved: 06-28-2024 06-28-2024 Results Test Name Value Interpretation Reference Range Facility MR FOOT LT W WO CONTon 11-10 MR FOOT LT W WO CONT MR FOOT LT W WO CON T MRI left foot with and without contrast HISTORY: Chronic foot pain, Blandon's neuroma first webspace. COMPARISON: Radiographs 07/11/2020 TECHNIQUE: Multiplanar, multisequence MR imaging was performed with and without contrast according to with and without contrast protocol. 20 mL Prohance administered intravenously without complication. FINDINGS: No fracture or malalignment. No stress injury. No suspicious osseous process. Mild to moderate first MTP arthritis, tiny dorsal osteophytes noted. Moderate to large volume first MTP joint fluid with diffuse regions of synovial thickening. No appreciable erosions or adjacent soft tissue process. There is trace first intermetatarsal bursal fluid. No Blandon's neuroma. No soft tissue injury. Intact Lisfranc ligament complex. IMPRESSION: 1. No acute osseous or soft tissue process. No evidence of Blandon's neuroma. 2. 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 Although not entirely specific, differential considerations include sequela of prior/chronic synovitis or possible inflammatory/infectiou s processes. Please correlate with patient history and physical exam. Finalized by Marv Patino MD on 11/11/2023 1:44 PM Normal [facility] SARS/FLU A+B/RSV by NAAT/Mol ecularon 07-27-2023 SARS/FLU A+B/RSV by NAAT/Molecular FLU A PCR Negative (qualifier value) FLU B PCR Positive (qualifier value) RSV by PCR Negative (qualifier value) SARS CoV 2 Not detected (qualifier value) NOTE The Xpert Xpress SARS-CoV-2/Flu/RSV Plus test is a rapid, multiplexed real-time RT-PCR test intended for the simultaneous qualitative detection and differentiation of SARS-CoV-2, influenza A, influenza B and respiratory syncytial virus (RSV) viral RNA from individuals suspected of respiratory viral infection consistent with COVID-19 by their healthcare provider. This test has not been validated in asymptomatic patients. The Xpert Xpress SARS-CoV-2 test is intended for use by qualified and trained operators who are performing tests using either Orgenesis DX or Chainalytics systems and is limited to laboratories that meet the CLIA requirements to perform high and moderate complexity tests. The Xpert Xpress SARS-CoV-2/Flu/RSV Plus is only for use under the Food and Drug Administration's Emergency Use Authorization. Results are for the simultaneous detection and differentiation of SARS-CoV-2, influenza A, influenza B and RSV nucleic acids in clinical specimens. SARS-CoV-2, influenza A, influenza B and RSV RNA identified by this test are generally detectable in upper respiratory samples during the acute phase of infection. Positive results are indicative of the presence of the identified virus, but do not rule out bacterial infection or co-infection with other pathogens not detected by this test. Clinical correlation with patient history and other diagnostic information is necessary to determine patient infection status. The agent detected may not be the definite cause of disease. Negative results do not preclude SARS-CoV-2, influenza A, influenza B and RSV infection and should not be used as the sole basis for treatment or other patient management decisions. Negative results must be combined with clinical observations, patient history and epidemiological information. An Invalid result may occur with specimen-associated inhibition unable to be resolved with specimen repeat. Fact Sheet for Healthcare Providers: https://www.fda.gov/me amy/292029/download Fact Sheet for Patients: https://www.fda.gov/me amy/379720/download Normal [facility] Comment on above: Performed By: #### C OVFLR #### [facility] ([id number]) [address] [place] [address], [place] [address] XR CHEST 1 VWon 07-27-2023 XR CHEST 1 VW XR CHEST 1 VW HISTORY: Cough, rhonchi. COMPARISON: 12/24/2020. TECHNIQUE: Single portable AP view of the chest. FINDINGS: The trachea is midline. The cardiomediastinal silhouette is not enlarged. No focal consolidation, large pleural effusion, or pneumothorax. Mild gaseous distention of the stomach. IMPRESSION: * No acute pulmonary process. Approved by Resident Dee Dee Taylor MD on 07/27/2023 7:50 PM I, Frankie Fried MD have personally reviewed the image(s) and agree with and/or edited the report Finalized by Frankie Fried MD on 07/27/2023 8:02 PM Normal [facility] SARS/FLU A+B/RSV by NAAT/Mol ecularon 07-20-2023 SARS/FLU A+B/RSV by NAAT/Molecular FLU A PCR Negative (qualifier value) FLU B PCR Negative (qualifier value) RSV by PCR Negative (qualifier value) SARS CoV 2 Not detected (qualifier value) NOTE The Xpert Xpress SARS-CoV-2/Flu/RSV Plus test is a rapid, multiplexed real-time RT-PCR test intended for the simultaneous qualitative detection and differentiation of SARS-CoV-2, influenza A, influenza B and respiratory syncytial virus (RSV) viral RNA from individuals suspected of respiratory viral infection consistent with COVID-19 by their healthcare provider. This test has not been validated in asymptomatic patients. The Xpert Xpress SARS-CoV-2 test is intended for use by qualified and trained operators who are performing tests using either Orgenesis DX or Chainalytics systems and is limited to laboratories that meet the CLIA requirements to perform high and moderate complexity tests. The Xpert Xpress SARS-CoV-2/Flu/RSV Plus is only for use under the Food and Drug Administration's Emergency Use Authorization. Results are for the simultaneous detection and differentiation of SARS-CoV-2, influenza A, influenza B and RSV nucleic acids in clinical specimens. SARS-CoV-2, influenza A, influenza B and RSV RNA identified by this test are generally detectable in upper respiratory samples during the acute phase of infection. Positive results are indicative of the presence of the identified virus, but do not rule out bacterial infection or co-infection with other pathogens not detected by this test. Clinical correlation with patient history and other diagnostic information is necessary to determine patient infection status. The agent detected may not be the definite cause of disease. Negative results do not preclude SARS-CoV-2, influenza A, influenza B and RSV infection and should not be used as the sole basis for treatment or other patient management decisions. Negative results must be combined with clinical observations, patient history and epidemiological information. An Invalid result may occur with specimen-associated inhibition unable to be resolved with specimen repeat. Fact Sheet for Healthcare Providers: https://www.fda.gov/ri amy/728747/download Fact Sheet for Patients: https://www.fda.gov/ri amy/408287/download [facility] Comment on above: Performed By: #### C OVFLR #### [facility] ([id number]) [address] [place] [address] History and Physicalon 05-11 History and Physical [id number] [facility] Operative Report - Surgeon/P hysicigus 05-11-2018 Operative Report - Surgeon/Physician [id number]#1.00 [facility] Provider Orderson 05-11-2018 Provider Orders [id number]#1.00 [facility] Coding Summaryon 05-06-2018 Coding Summary CODING DATE: 05/06/[address] [facility] STATUS: Home PAYOR: Medicaid HMO ADMIT DX: REASON FOR VISIT DX: N81.10 Cystocele, unspecified N92.0 Excessive and frequent menstruation with regular cycle N81.9 Female genital prolapse, unspecified FINAL DX: PRINCIPAL: N72 Inflammatory disease of cervix uteri SECONDARY: N88.8 Other specified noninflammatory disorders of cervix uteri N84.1 Polyp of cervix uteri N92.0 Excessive and frequent menstruation with regular cycle PROCEDURES DOCTOR NAME DATE 02527 Vaginal hysterectomy, for Samuel Loja DO 04/28/2018 uterus 250 g or less; NOTE: The code number assigned matches the documented diagnosis and / or procedure in the patient's chart. However, the narrative phrase printed from the coding software may appear abbreviated, or result in slightly different terminology. Coded By: Janis Iyer Date Saved: 05/06/2018 06:00 am [facility] Lab - AP Resultson 8 Lab - AP Results [id number] OTGTIFF [facility] MAGR Postoperative Recordon 05-01-2018 MAGR Postoperative Record MAGR Phase II Record Summary Primary Physician: Samuel Loja DO Finalized Date/Time: 05/01/18 10:14:03 Pt. Name: WALE DELGADO/Sex: 1995 FEMALE Med Rec #: [id number] Physician: Samuel Loja DO Financial #: [id number] Pt. Type: O Room/Bed: [facility] Admit/Disch: 04/28/18 05:59:59 - 04/29/18 11:20:00 Institution: Phase II Case Times MAGR Pre-Care Text: Patient is free from s/s of injury. Patient remains free from compromised physical state related to surgery or anesthesia. Patient comfort maintained. Patient/family verbalize understanding of discharge instructions. Entry 1 In PACU II 04/28/18 10:33:00 Discharge from PACU 04/28/18 11:30:00 II Last Modified By: Chen Marquez RN 05/01/18 10:13:57 Post-Care Text: The patient remains free from s/s of injury. Patient's vital signs stable, circulation maintained, return to preop mental and physical status, opsite/dressing intact, minimal or absent nausea and vomiting, tolerates po intake. Patient verbalizes adequate pain control. Patient/family express understanding of discharge instructions. General Comments: care per 2 [facility] nursing staff Finalized By: Chen Marquez RN Document Signatures Signed By: Chen Marquez RN 05/01/18 10:14 [facility] Consent Formson 04-30-2018 Consent Forms [id number]#1.00 [facility] Outside Recordson 04-30-2018 Outside Records [id number]#1.00 [facility] Pathology Sendout Teston Pathology Send Out. See Report [facility] Comment on above: Order Comment: UTERU S Performed By: #### 2 [id number] ####[facility] (DEFAULT)[address] [place] [address] Telemetry Stripson 8 Telemetry Strips [id number]#1.00 [facility] Education Noteon 04-29-2018 Education Note Education Materials Vaginal Hysterectomy, Care After Refer to this sheet in the next few weeks. These instructions provide you with information on caring for yourself after your procedure. Your health care provider may also give you more specific instructions. Your treatment has been planned according to current medical practices, but problems sometimes occur. Call Dr Loja's office or [facility] to request to speak with Dr Loja if you have any problems or questions after your procedure. WHAT TO EXPECT AFTER THE PROCEDURE After your procedure, it is typical to have the following: ? Abdominal pain. You will be given pain medicine to control it. ? Sore throat from the breathing tube that was inserted during surgery. HOME CARE INSTRUCTIONS ? Only take espi-zpd-qgdrlxx or prescription medicines for pain, discomfort, or fever as directed by your health care provider. ? Do not take aspirin. It can cause bleeding. ? Do not drive when taking pain medicine. ? Follow Dr Loja's instructions regarding diet, exercise, no lifting over 20 lbs for (2) weeks, no driving while taking narcotic pain medications. ? Resume your usual diet as directed and allowed. ? Get plenty of rest and sleep. ? Do not douche, use tampons, or have sexual intercourse for at least 6 weeks, or until your health care provider gives you permission. ? Monitor your temperature and notify Dr Loja of a body temperature greater than 100.6 degrees. ? Take showers instead of baths for 2?3 weeks.Shower daily ? Do not drink alcohol until your health care provider gives you permission. ? If you develop constipation, you may take a milk of magnesia or Dulcolax (Bisacodyl) suppository or tablets. Bran foods may help with constipation problems. Drinking enough fluids to keep your urine clear or pale yellow may help as well. ? Try to have someone home with you for 1?2 weeks to help around the house.? Follow-up appointment with Dr Loja in 2 weeks after surgery. Call his office for an appointment. SEEK MEDICAL CARE IF: ? You feel dizzy or lightheaded. ? You have pain or bleeding when you urinate. ? You have persistent diarrhea. ? You have persistent nausea and vomiting. ? You have heavy vaginal bleeding. ? You have a rash. ? You have any type of abnormal reaction or develop an allergy to your medicine. ? You have poor pain control with your prescribed medicine. SEEK IMMEDIATE MEDICAL CARE IF: ? You have a fever. ? You have severe abdominal pain. ? You have chest pain. ? You have shortness of breath. ? You faint. ? You have pain, swelling, or redness in your leg. ? You have heavy vaginal bleeding with blood clots. MAKE SURE YOU: ? Understand these instructions. ? Will watch your condition. ? Will get help right away if you are not doing well or get worse. This information is not intended to replace advice given to you by your health care provider. Make sure you discuss any questions you have with your health care provider. Document Released: 05/28/2012 Document Revised: 06/14/2014 Document Reviewed: 12/23/2013 Elsevier Interactive Patient Education ?2016 [employer] Normal [facility] Inpatient Patient Summaryon 04-29-2018 Inpatient Patient Summary [address] [address] Patient Discharge Instructions Name: WALE DELGADO : 89 Patient Address: [address] [place] [address] Primary Care Provider: Name: Provider, Unlisted Phone: After you are discharged if you find you have any questions, please, call [phone] to speak to a nurse. Discharge Diagnosis: 1:Pelvic organ prolapse quantification stage 3 cystocele; 2:Menorrhagia with regular cycle; 3:Cystocele with uterine prolapse If you received any narcotics, sedation, or any other medication that causes drowsiness for the next 24 hours, unless otherwise directed: ? Do not drive a car. ? Do not operate machinery such as power tools, lawn mowers, drills, sewing machines, or stoves ? Avoid alcoholic beverages and drugs for allergies, nerves, or sleep ? Do not make important personal or business decisions or sign any legal documents [facility] would like to thank you for allowing us to assist you with your healthcare needs. The following includes patient education materials and information regarding your injury/illness. WALE DELGADO has been given the following list of follow-up instructions, prescriptions, and patient education materials: Follow-up Instructions With: Address: When: Samuel Loja [address] [place] [address] [facility] () In 2 weeks 05/12/18 With: Address: When: Unlisted Provider Medications During the course of your visit, your medication list was updated with the most current information. The details of those changes are reflected below: New Medications Printed Prescriptions acetaminophen-oxycodon e (Percocet 5/325 oral tablet) 1 tab(s) Oral every 6 hours as needed for pain. may take 1 or 2 tablets not to exceed 12 tablets/day. Refills: 0. ibuprofen (ibuprofen 600 mg oral tablet) 1 tab(s) Oral Every 6 hours as needed as needed for pain. Refills: 0. Medications to Continue That Have Not Changed Other Medications albuterol (albuterol 90 mcg/inh inhalation aerosol) 2 puff(s) Inhalation Every 4 hours as needed for wheezing. ferrous sulfate (ferrous sulfate 325 mg Tab) 1 tab(s) Oral 2 times a day. No Longer Take the Following Medications acetaminophen (Tylenol 325 mg oral capsule) 1 cap Oral every 90 minutes as needed as needed for pain. APAP/ASA/caffeine (Excedrin Migraine oral tablet) 2 tab(s) Oral Every 6 hours as needed for headache. It is important to always keep an active list of medications available so that you can share with other providers and manage your medications appropriately. As an additional courtesy, we are also providing you with your final active medications list that you can keep with you. acetaminophen-oxycodon e (Percocet 5/325 oral tablet) 1 tab(s) Oral every 6 hours as needed for pain. may take 1 or 2 tablets not to exceed 12 tablets/day. Refills: 0. albuterol (albuterol 90 mcg/inh inhalation aerosol) 2 puff(s) Inhalation Every 4 hours as needed for wheezing. ferrous sulfate (ferrous sulfate 325 mg Tab) 1 tab(s) Oral 2 times a day. ibuprofen (ibuprofen 600 mg oral tablet) 1 tab(s) Oral Every 6 hours as needed as needed for pain. Refills: 0. Take only the medications listed above. Contact your doctor prior to taking any medications not on this list. Medication leaflets, if any, will display below Diet & Activity Patient Activity Level: As Tolerated Patient Diet: Regular Patient Activity Restrictions: No driving, No Heavy Lifting Over 50lbs, No Sexual Activity Patient education materials, if any, will display below Vaginal Hysterectomy, Care After Refer to this sheet in the next few weeks. These instructions provide you with information on caring for yourself after your procedure. Your health care provider may also give you more specific instructions. Your treatment has been planned according to current medical practices, but problems sometimes occur. Call Dr Loja's office or [facility] to request to speak with Dr Loja if you have any problems or questions after your procedure. WHAT TO EXPECT AFTER THE PROCEDURE After your procedure, it is typical to have the following: ? Abdominal pain. You will be given pain medicine to control it. ? Sore throat from the breathing tube that was inserted during surgery. HOME CARE INSTRUCTIONS ? Only take ocdf-vnr-rrswaad or prescription medicines for pain, discomfort, or fever as directed by your health care provider. ? Do not take aspirin. It can cause bleeding. ? Do not drive when taking pain medicine. ? Follow Dr Loja's instructions regarding diet, exercise, no lifting over 20 lbs for (2) weeks, no driving while taking narcotic pain medications. ? Resume your usual diet as directed and allowed. ? Get plenty of rest and sleep. ? Do not douche, use tampons, or have sexual intercourse for at least 6 weeks, or until your health care provider gives you permission. ? Monitor your temperature and notify Dr Loja of a body temperature greater than 100.6 degrees. ? Take showers instead of baths for 2?3 weeks.Shower daily ? Do not drink alcohol until your health care provider gives you permission. ? If you develop constipation, you may take a milk of magnesia or Dulcolax (Bisacodyl) suppository or tablets. Bran foods may help with constipation problems. Drinking enough fluids to keep your urine clear or pale yellow may help as well. ? Try to have someone home with you for 1?2 weeks to help around the house.? Follow-up appointment with Dr Loja in 2 weeks after surgery. Call his office for an appointment. SEEK MEDICAL CARE IF: ? You feel dizzy or lightheaded. ? You have pain or bleeding when you urinate. ? You have persistent diarrhea. ? You have persistent nausea and vomiting. ? You have heavy vaginal bleeding. ? You have a rash. ? You have any type of abnormal reaction or develop an allergy to your medicine. ? You have poor pain control with your prescribed medicine. SEEK IMMEDIATE MEDICAL CARE IF: ? You have a fever. ? You have severe abdominal pain. ? You have chest pain. ? You have shortness of breath. ? You faint. ? You have pain, swelling, or redness in your leg. ? You have heavy vaginal bleeding with blood clots. MAKE SURE YOU: ? Understand these instructions. ? Will watch your condition. ? Will get help right away if you are not doing well or get worse. This information is not intended to replace advice given to you by your health care provider. Make sure you discuss any questions you have with your health care provider. Document Released: 05/28/2012 Document Revised: 06/14/2014 Document Reviewed: 12/23/2013 [employer] Interactive Patient Education ?2016 [employer] Viruses or Bacteria What?s got you sick? Antibiotics only treat bacterial infections. Viral illnesses cannot be treated with antibiotics. When an antibiotic is not prescribed, ask your healthcare professional for tips on how to relieve symptoms and feel better. Usual Cause Illness Viruses Bacteria Antibiotic Needed Cold/Runny Nose NO Bronchitis/Chest Cold (in otherwise healthy children and adults) NO Whooping Cough Yes Flu NO Strep Throat Yes Sore Throat (except strep) NO Fluid in the middle ear (otitis media with effusion) NO Urinary Tract Infection Yes Antibiotics Aren?t Always the Answer www.cdc.gov/getsmart GET SMART Know When Antibiotics Work U.S. Department of Health and Human Services Centers for Disease Control and Prevention February 2014 [facility] MAGR Intraoperative Recordon 04-29-2018 MAGR Intraoperative Record MAGR Intra-Op Record Summary Primary Physician: Samuel Loja DO Finalized Date/Time: 04/29/18 13:38:58 Pt. Name: WALE DELGADOE /Sex: 1995 FEMALE Med Rec #: [id number] Physician: Samuel Loja DO Financial #: [id number] Pt. Type: O Room/Bed: [facility] Admit/Disch: 04/28/18 05:59:59 - Institution: Case Times MAGR Entry 1 Patient In Room Time 04/28/18 07:59:00 Out Room Time 04/28/18 09:29:00 Anesthesia Start Time 04/28/18 07:59:00 Stop Time 04/28/18 09:29:00 Surgery Start Time 04/28/18 08:24:00 Stop Time 04/28/18 09:20:00 Last Modified By: Juanita Holland RN 04/28/18 10:22:44 Case Attendance MAGR Entry 1 Entry 2 Entry 3 Case Attendee Samuel Loja DO, David DO Sauer, Stephanie RN Role Performed Surgeon - Primary Anesthesiologist of Apron Worker Record Time In 04/28/18 07:59:00 04/28/18 07:59:00 04/28/18 07:59:00 Time Out 04/28/18 09:29:00 04/28/18 09:29:00 04/28/18 09:29:00 Procedure Hysterectomy Vaginal Hysterectomy Vaginal Hysterectomy Vaginal Last Modified By: Juanita Holland RN, Stephanie RN Sauer, Stephanie RN 04/28/18 10:27:29 04/28/18 10:27:29 04/28/18 10:27:29 Entry 4 Entry 5 Case Attendee Edgar Sanchez Rachel CERTIFIED SURGICAL FIRST ASSISTANT/CSFA Role Performed Dining Room Attendant Cafeteria Scrub Personnel Time In 04/28/18 07:59:00 04/28/18 07:59:00 Time Out 04/28/18 09:29:00 04/28/18 09:29:00 Procedure Hysterectomy Vaginal Hysterectomy Vaginal Last Modified By: Juanita Holland RN, Stephanie RN 04/28/18 10:27:29 04/28/18 10:27:29 Surgical Procedures MAGR Pre-Care Text: A.20 Verifies operative procedure, surgical site, and laterality Im.150 Develops individualized plan of care Entry 1 Procedure Hysterectomy Vaginal Primary Procedure Yes Primary Surgeon Samuel Loja DO Surgeon Comment TOTAL VAGINAL HYSTERECTOMY Start 04/28/18 08:24:00 Stop 04/28/18 09:20:00 Anesthesia Type General Surgical Service Gynecology Wound Class Clean-Contaminated Last Modified By: Juanita Holland RN 04/28/18 10:30:57 Post-Care Text: O.730 The patient's care is consistent with the individualized perioperative plan of care General Case Data MAGR Pre-Care Text: A.350.1 Classifies surgical wound Entry 1 Case Information OR MAGR OR 01 Case Level Level 5 Wound Class Clean-Contaminated Specialty Gynecology ASA Class 2 Diagnosis Preop Diagnosis MENORRHAGIA, PELVIC Postop Same As Preop Yes ORGAN PROLAPSE, CYSTOCELE Postop Diagnosis MENORRHAGIA, PELVIC ORGAN PROLAPSE, CYSTOCELE Last Modified By: Juanita Holland RN 04/28/18 10:31:06 Post-Care Text: O.760 Patient receives consistent and comparable care regardless of the setting Time Out MAGR Entry 1 Time out date/time 04/28/18 08:23:00 All team members Yes have introduced themselves by name and role Surgeon, Yes Surgeon reviews Yes anesthesia, nurse critical or confirm patient, unexpected steps, site, procedure operative duration, anticipated blood loss Anesthesia team Yes Nursing team Yes reviews any reviews sterility patient-specific (including concerns indicator results) and equipment issues/concerns Antibiotic Antibiotic Yes Administration Time 07:55 prophylaxis given within the last 60 minutes Is essential Yes imaging displayed? Last Modified By: Juanita Holland RN 04/28/18 08:44:21 Patient Positioning MAGR Pre-Care Text: A.280 Identifies baseline musculoskeletal status Im.40 Positions the patient Im.80 Applies safety devices Entry 1 Procedure Hysterectomy Vaginal Body Position Supine Left Arm Position Extended on padded arm Right Arm Position Extended on padded arm board board Left Leg Position Extended Right Leg Position Extended Feet Uncrossed? Yes Press Points Checked Yes Positioning Device Safety Strap Outcome Met (O.80) Yes Last Modified By: Juanita Holland RN 04/28/18 08:44:30 Post-Care Text: E.290 Evaluates musculoskeletal status O.80 Patient is free from signs and symptoms of injury related to positioning Skin Prep MAGR Pre-Care Text: A.30 Verifies allergies Im.270 Performs skin preparation Im.270.1 Implements protective measures to prevent skin and tissue injury due to chemical sources Entry 1 Skin Prep Syntegrity Prep Agents (Im.270) Povidone-Iodine Prep By Juanita Holland RN Prep Area (Im.270) Abdomen Skin Prep Agent Dry Yes Without Pooling Hair Removal Syntegrity Hair Removal Methods No hair removal Hair Removal Site Abdomen performed Hair Removal Site Lower Details Outcome Met (O.100) Yes Last Modified By: Juanita Holland RN 04/28/18 08:58:35 Post-Care Text: E.10 Evaluates for signs and symptoms of physical injury to skin and tissue O.100 Patient is free from signs and symptoms of chemical injury Counts Verification MAGR Pre-Care Text: A.20 Verifies operative procedure, surgical site, and laterality A.20.2 Assesses the risk for unintended retained foreign body Im.20 Performs required counts Entry 1 Procedure Hysterectomy Vaginal Counts Verification Initial Counts Items included in Instruments, Sponges, Initial Counts Juanita Holland RN the Initial Count Sharps Performed By Initial Count Time 04/28/18 07:30:00 Counts Verification Final Counts Items Included in Instruments, Sponges, Final Count Status Correct Final Count Sharps Final Counts Juantia Holland RN Final Count Time 04/28/18 10:30:00 Performed By Surgeon notified of Yes final counts status Outcome Met (O.20) Yes Last Modified By: Juanita Holland RN 04/28/18 08:59:08 Post-Care Text: E.50 Evaluates results of the surgical count O.20 Patient is free from unintended retained foreign objects Patient Care Devices MAGR Pre-Care Text: A.200 Assesses risk for normothermia regulation A.40 Verifies presence of prosthetics or corrective devices Im.280 Implements thermoregulation measures Im.60 Uses supplies and equipment within safe parameters Entry 1 Equipment Type FORCED WARM AIR UNIT Serial ?# [id number] Equipment Setting 43 DEGREES Last Modified By: Juanita Holland RN 04/28/18 08:59:32 Post-Care Text: E.10 Evaluates signs and symptoms of physical injury to skin and tissue O.700 Patient is free from signs and symptoms of injury caused by extraneous objects Cautery MAGR Pre-Care Text: A.240 Assesses baseline skin condition A.40 Verifies presence of prosthetics or corrective devices Im.50 Implements protective measures to prevent injury due to electrical sources Entry 1 ESU Type Vessel Sealing System Identification 5703 Number ESU Settings Syntegrity Cut Setting 30 Coag Setting 30 Grounding Pad Details Grounding Pad Yes Verified By Juanita Holland RN Needed? Grounding Pad Site Table Grounding Pad Within Expiration Yes Date? Outcome Met (O.10) Yes Last Modified By: Juanita Holland RN 04/28/18 10:24:21 Post-Care Text: E.10 Evaluates for signs and symptoms of physical injury to skin and tissue O.10 Patient is free from signs and symptoms of injury related to thermal sources Catheters, Drains & Tubes MAGR Pre-Care Text: A.310 Identifies factors associated with an increased risk for hemorrhage or fluid and electrolyte imbalance Im.250 Administers care to invasive device sites Entry 1 Device Description TRAY URINE METER ROCK Device Type Bladder Location Urethra Balloon Inflation 10ML Amount Present on Arrival? No Inserted By Samuel Loja DO Inserted Date/Time 04/28/18 09:15:00 DC'd at End of Case? No Drainage Details Drainage? Yes Color Yellow Urinary Catheter Hand Hygiene Performed Outcome Met (O.60) Yes Checklist Before and After Insertion, Aseptic Technique and Sterile Equipment Used, Perineal Area Cleansed Before Insertion, Catheter Properly Secured, Collection Bag Positioned Below Bladder Last Modified By: Juanita Holland RN 04/28/18 10:25:27 Post-Care Text: E.340 Evaluates tubes and drains are intact and functioning as planned O.60 Patient is free from signs and symptoms of injury caused by extraneous objects Cultures and Specimens MAGR Pre-Care Text: A.350 Assesses susceptibility for infection A.10 Confirms patient identity Im.320 Manages culture specimen collection Im.330 Manages specimen handling and disposition Entry 1 Cultures Ordered n/a Specimens Ordered Yes Outcome Met (O.40) Yes Last Modified By: Juanita Holland RN 04/28/18 10:25:35 Post-Care Text: E.40 Evaluates correct processes have been performed for specimen handling and disposition O.40 Patient's specimen(s) is managed in the appropriate manner Medication Administration MAGR Pre-Care Text: A.210 Identifies physiological status Im.220 Administers prescribed medications Entry 1 Time Administered 04/28/18 08:23:00 Medication 05% MARCAINE W/ EPI 1:100,000 Route of Admin Incisional/Surgical Site Volume 15 mL By Samuel Loja DO Outcome Met (O.130) Yes Last Modified By: Juanita Holland RN 04/28/18 10:26:19 Post-Care Text: E.20 Evaluates response to medications O.130 Patient receives appropriately administered medication(s) Dressing/Packing MAGR Pre-Care Text: A.350 Assesses susceptibility for infection Im.290 Administer care to wound sites Entry 1 Skin Prep Agent Yes Site Perineum Removed Prior to Dressing? Dressing Item Details Miscellaneous Sanitary Pad (Im.290) Outcome Met Yes Last Modified By: Juanita Holland RN 04/28/18 10:27:01 Post-Care Text: E.200 Evaluates progress of wound healing O.200 Patient's wound perfusion is consistent with or improved from baseline levels Departure from OR MAGR Entry 1 Present on Depart Oxygen, Catheter Via Bed Post-op Destination PACU Skin DFO Condition Dry Description Condition Warm Description Report Given To Jamaica Coles RN Airway Maintenance Patient Status Stable Oxygen in Use? Yes Airway Device Simple mask Flow Rate 10 L/min Last Modified By: Juanita Holland RN 04/28/18 10:27:22 Case Comments Finalized By: Ashlie Lees RN Document Signatures Signed By: Ashlie Lees RN 04/29/18 13:38 Normal [facility] Pharmacy Noteon 04-29-2018 Pharmacy Note Spoke to this post operative patient as she was laying in bed. She was laying in bed but preparing to be discharged. Time was spent discussing pain medications and the concerns relating to them. [Electronically Signed on: 04/29/2018 15:50 EST] Celine Ansari [Verified on: 04/29/2018 15:50 EST] Celine Ansari Normal [facility] .Auto Diff 1on 04-28-2018 Auto [place] % 2 % Normal 1-12 [facility] Comment on above: Performed By: #### 7 [id number], [id number] #### [facility] (DEFAULT) [address] [place] [address] Baso Abs# 0.0 x10 Normal 0.0-0.2 [facility] Comment on above: Performed By: #### 7 [id number], [id number] #### [facility] (DEFAULT) [address] [place] [address] 36795 Basophils/100 WBC (Bld) 0.2 % Normal 0.2-2.0 [facility] Comment on above: Performed By: #### 7 [id number], [id number] #### [facility] (DEFAULT) [address] [place] [address] 84755 Eos Abs# 0.1 x10 Normal 0.0-0.4 [facility] Comment on above: Performed By: #### 7 [id number], [id number] #### [facility] (DEFAULT) [address] [place] [address] 14696 Eosinophils/100 WBC (Bld) 0.5 % Low 0.9-4.0 [facility] Comment on above: Performed By: #### 7 [id number], [id number] #### [facility] (DEFAULT) [address] [place] [address] 69557 Lymphocytes (Bld) [#/Vol] 1.0 x10 Low 1.3-2.9 [facility] Comment on above: Performed By: #### 7 [id number], [id number] #### [facility] (DEFAULT) [address] [place] [address] 92028 Lymphocytes/100 WBC (Bld) 8 % Low 14-48 [facility] Comment on above: Performed By: #### 7 [id number], [id number] #### [facility] (DEFAULT) [address] [place] [address] [place] Abs# 0.2 x10 Normal 0.0-0.8 [facility] Comment on above: Performed By: #### 7 [id number], [id number] #### [facility] (DEFAULT) [address] [place] [address] 45203 Neut Abs# 11.7 x10 High 1.5-9.2 [facility] Comment on above: Performed By: #### 7 [id number], [id number] #### [facility] (DEFAULT) [address] [place] [address] 44287 Neutrophils/100 WBC (Bld) 90 % High 44-88 [facility] Comment on above: Performed By: #### 7 [id number], [id number] #### [facility] (DEFAULT) [address] [place] [address] Anesthesia Noteon 04-28-2018 Anesthesia Note Patient: WALE DELGADO Age: 22 years Sex: FEMALE : [birth year] Associated Diagnoses: None Author: Osmany German DO Preoperative Information Anesthesia history: Patient history: No difficult intubation, No malignant hyperthermia. Family history: No malignant hyperthermia, No prior anesthesia problems. Review of Systems Constitutional: Negative. Eye Ear/Nose/Mouth/Throat Respiratory: No shortness of breath, No cough. Cardiovascular: No chest pain. Gastrointestinal: No heartburn. Neurologic: Alert and oriented X4. Health Status Allergies: Allergic Reactions (All) No known allergies Current medications: Home Medications (4) Active albuterol 90 mcg/inh inhalation aerosol 2 puff(s), PRN, INH, q4hr Excedrin Migraine oral tablet 2 tab(s), PRN, PO, q6hr ferrous sulfate 325 mg Tab 1 tab(s), PO, BID Tylenol 325 mg oral capsule 325 mg = 1 cap(s), PRN, PO, q90min Problem list (past medical history): All Problems Active asthma / SNOMED CT 521456352 / Confirmed Migraine / SNOMED CT 460699276221648 / Confirmed ILIANA (iron deficiency anemia) / SNOMED CT 775345939 / Confirmed Resolved: / SNOMED CT 574541767 Resolved: / SNOMED CT 740544749 Resolved: / SNOMED CT 028230970 Resolved: / SNOMED CT 852525302 Histories Family History: High blood pressure Grandparent Procedure history: Bilateral tubal ligation ([id number]) in 2018 at 23 Years. Cholecystectomy (20181285) on 07/26/2016 at 21 Years. Social History Alcohol Assessment Use: Never. Tobacco Assessment Never (less than 100 in lifetime) Tobacco Use:. Substance Abuse Assessment Substance use: Never. . Social & Psychosocial Habits Alcohol 04/15/2017 Alcohol Use: Never Substance Abuse 04/15/2017 Substance use: Never Tobacco 04/15/2017 Smoking tobacco use: Never (less than 100 in l . Physical Examination VS/Measurements Vital Signs (last 24 hrs) Last Charted Heart Rate Peripheral 86 bpm (APR 28:) Resp Rate 18 br/min (APR 28:) SBP 120 mmHg (APR 28:) DBP H 91mmHg (APR 28:) SpO2 98 % (APR 28:) General: Alert and oriented, No acute distress. Airway: Mallampati classification: II (soft palate, fauces, uvula visible). Temporomandibular joint mobility: Good. Mouth: Teeth ( Missing ). Neck: Full range of motion. Respiratory: Lungs are clear to auscultation. Cardiovascular: Normal rate, Regular rhythm. Neurologic: Alert, Oriented. Review / Management Laboratory Results Plan [place] [employer] Anesthesiologists#(ASA ) physical status classification: Class II. Anesthetic Preoperative Plan Anesthesia: General. . Anesthetic plan, risks, benefits, and alternatives discussed with the patient and/or family. Risks discussed: nausea, vomiting, sore throat, serious complications. Patient verbalized understanding. Family/Guardian present. Informed consent was given. Consent was signed by the patient. [Electronically Signed on: 04/28/2018 07:53 EST] Osmany German DO [Verified on: 04/28/2018 07:53 EST] Osmany German DO Normal [facility] CBC w/ Auto Diffon 8 Erythrocyte distribution width (RBC) [Ratio] 15.0 % Normal 11.5-15.0 [facility] Comment on above: Performed By: #### 7 [id number], [id number] #### [facility] (DEFAULT) [address] [place] [address] Hematocrit (Bld) [Volume fraction] 38.5 % Normal 33.7-40.4 [facility] Comment on above: Performed By: #### 7 [id number], [id number] #### [facility] (DEFAULT) [address] [place] [address] Hemoglobin (Bld) [Mass/Vol] 13.1 g/dL Normal 11.3-15.9 [facility] Comment on above: Performed By: #### 7 [id number], [id number] #### [facility] (DEFAULT) [address] [place] [address] Man Diff? Auto Normal [facility] Comment on above: Performed By: #### 7 [id number], [id number] #### [facility] (DEFAULT) [address] [place] [address] MCH (RBC) [Entitic mass] 28 pg Normal 24-34 [facility] Comment on above: Performed By: #### 7 [id number], [id number] #### [facility] (DEFAULT) [address] [place] [address] MCHC (RBC) [Mass/Vol] 34 g/dL Normal 26-37 [facility] Comment on above: Performed By: #### 7 [id number], [id number] #### [facility] (DEFAULT) [address] [place] [address] MCV (RBC) [Entitic vol] 82 fL Normal 81-100 [facility] Comment on above: Performed By: #### 7 [id number], [id number] #### [facility] (DEFAULT) [address] [place] [address] Platelet mean volume (Bld) [Entitic vol] 10.1 fL Normal 6.3-10.2 [facility] Comment on above: Performed By: #### 7 [id number], [id number] #### [facility] (DEFAULT) [address] [place] [address] Platelets (Bld) [#/Vol] 168 x10 Normal 138-427 [facility] Comment on above: Performed By: #### 7 [id number], [id number] #### [facility] (DEFAULT) [address] [place] [address]201 RBC (Bld) [#/Vol] 4.69 x10 Normal 3.70-5.30 [facility] Comment on above: Performed By: #### 7 [id number], [id number] #### [facility] (DEFAULT) [address] [place] [address] WBC (Bld) [#/Vol] 13.0 x10 High 3.5-10.5 [facility] Comment on above: Performed By: #### 7 [id number], [id number] #### [facility] (DEFAULT) [address] [place] [address] Result Comment: Slid e Reviewed Consent Formson 04-28-2018 Consent Forms [id number]#1.00 [facility] Consent Forms [id number]#1.00 [facility] MAGR PACU Recordon 8 MAGR PACU Record MAGR PACU Record Summary Primary Physician: Samuel Loja DO Finalized Date/Time: 04/28/18 10:40:46 Pt. Name: WALE DELGADO/Sex: 1995 FEMALE Med Rec #: [id number] Physician: Samuel Loja DO Financial #: [id number] Pt. Type: D Room/Bed: 221/1 Admit/Disch: 04/28/18 05:59:59 - Institution: PACU Case Times MAGR Entry 1 In PACU I 04/28/18 09:30:00 Ready for PACU I 04/28/18 10:30:00 Discharge Discharge from PACU 04/28/18 10:30:00 I Last Modified By: Jamaica oCles RN 04/28/18 10:40:44 General Comments: Discharge to nursing unit per Dr German using discharge criteria. Finalized By: Jamaica Coles RN Document Signatures Signed By: Jamaica Coles RN 04/28/18 10:40 [facility] 06-28-2017 MAGR Preoperative Record MAGR Pre-Op Record Summary Primary Physician: Samuel Loja DO Finalized Date/Time: 04/28/18 08:01:12 Pt. Name: WALE DELGADOE /Sex: 1995 FEMALE Med Rec #: [id number] Physician: Samuel Loja DO Financial #: [id number] Pt. Type: D Room/Bed: / Admit/Disch: 04/28/18 05:59:59 - Institution: Pre-Op Case Times MAGR Pre-Care Text: Patient will be optimally prepared for surgery. Patient is free from s/s of injury. Provide information to patient/family related to plan of care. Verify patient allergies. Confirm identity and verify consent before the operative or invasive procedure. Entry 1 Patient Arrival Time 04/28/18 06:05:00 Preop Departure 04/28/18 08:00:00 Last Modified By: Jennifer Zapata RN 04/28/18 08:01:03 Post-Care Text: Patient is prepared mentally and physically and is ready for surgery. The patient remains free from s/s of injury. Patient/family express understanding of plan of care and participate in decisions affecting his or her perioperrative plan of care. Allergies documented appropriately. Patient identifiers and consent correct. General Comments: arrives ambulatory to w, denies recent cp, sob, new illnesses, pacemaker, defibrillator or sleep apnea Finalized By: Jennifer Zapata RN Document Signatures Signed By: Jennifer Zapata RN 04/28/18 08:01 [facility] Nutrition Noteon 04-28-2018 Nutrition Note 22 year old female adm. for Total Vag. Hyster. No identified recent wt. changes, nor problems chewing/swallowing. Noted Constipation 04/22/18, otherwise don't anticipate any nutritional problems post op, so pt. is currently at low nutritional risk. Monitor GI function and appetite from Regular diet ordered. Normal [facility] Operative Report - Surgeon/P andrew 04-28-2018 Operative Report - Surgeon/Physician DATE OF PROCEDURE: 04/28/2018 PREOPERATIVE DIAGNOSES: Pelvic organ prolapse, menorrhagia, failed medical therapy, cystocele. POSTOPERATIVE DIAGNOSES: Pelvic organ prolapse, menorrhagia, failed medical therapy, cystocele, pending pathology. PROCEDURE: Total vaginal hysterectomy. SURGEON: Samuel Loja DO ANESTHESIA: General by Osmany German D.O. COMPLICATIONS: None. ESTIMATED BLOOD LOSS: 100 cc URINE OUTPUT: 50 cc of clear urine at the end of the procedure. FLUIDS: Approximately 1000 cc of Lactated Ringer's FINDINGS: Examination under anesthesia: Normal sized uterus, cervix and uterus prolapsed. Cervix long, closed, in the middle. Tubes and ovaries not well visualized. PROCEDURE: The risks, benefits, indications and alternatives of the procedure were reviewed with the patient and informed consent was obtained. The patient was taken to the operating room with IV running. The patient was placed in the dorsolithotomy position after adequate general anesthesia and she was prepped and draped in the normal sterile fashion. She had just emptied her bladder just prior to being taken back to surgery. Next, a weighted speculum was placed in the patient's vagina and the anterior aspect of the cervix was grasped with a single tooth tenaculum. The cervix was then injected circumferentially with Marcaine 0.5% with epinephrine. The cervix was then circumferentially electrocauterized with the Bovie and the bladder was dissected off the pubovesical cervical fascia with the Metzenbaum scissors and the sponge stick. The anterior cul-de-sac was entered sharply. The same procedure was then performed posteriorly and the posterior cul-de-sac was entered sharply without difficulty. Next, the LigaSure was placed at the uterosacral ligaments and these were grasped, electrocauterized and cut. Hemostasis was assured. The cardinal ligaments were then clamped with the Kael clamps on both sides, transected and suture ligated with O Vicryl. The uterine arteries and the broad ligament were then serially clamped with the LigaSure, cauterized and cut on both sides. Excellent hemostasis was visualized. Both cornua were then clamped with the LigaSure, cauterized and cut, and the uterus was then delivered. The peritoneum and vaginal cuff angle were closed in a single stitch with O Vicryl, each angle was first closed with figure of eight stitches of O Vicryl on both sides and were transfixed to the ipsilateral cardinal and uterosacral ligaments. The remainder of the vaginal cuff was closed with figure of eight stitches of O Vicryl and interlocking sutures of O Vicryl. After excellent hemostasis, a Rock catheter was placed in the bladder and 50 cc of clear urine was noted at the end of the procedure. All instruments were removed from the vagina. The cystocele was resolved by the total vaginal hysterectomy. The decision was made not to perform an anterior colporrhaphy. The patient was taken out of the dorsolithotomy position and she was awakened from general anesthesia. The patient was then taken to the PACU awake and in stable condition. Sponge, lap, needle and instrument counts were correct x2. The patient did receive Ancef 2 grams IV piggyback on the way to the operating room just prior to the beginning of the procedure. PATHOLOGY: The uterus was sent to pathology. Samuel Loja DO JOB #: [id number] [Electronically Signed on: 05/26/2018 08:04 EST] Samuel Loja DO, D.O. [Verified on: 05/26/2018 08:04 EST] Samuel Loja DO, D.O. [Transcribed on: 04/28/2018 10:38 EST] GDU Normal [facility] Test Urine 1on U Preg Negative [facility] Comment on above: Performed By: #### 3 [id number] #### [facility] (DEFAULT) [address] [place] [address] U Preg Internal Control Pass [facility] Comment on above: Performed By: #### 3 [id number] #### [facility] (DEFAULT) [address] [place] [address] Progress Note - Nurseon Progress Note - Nurse Taking fluids well, appetite good. Medicated for pain et medications were effective. Able to ambulate in hallway approx. 200 ft. et sat in chair for 45 minutes tolerated both activities well. Very slight amt.of vag. drng.. Resting in bed at this time. Indwelling urinary catheter removed at 1815. [Electronically Signed on: 04/28/2018 18:53 EST] Ann Marie Wheeler RN [Verified on: 04/28/2018 18:53 EST] Ann Marie Wheeler RN [facility] Coding Summaryon 04-27-2018 Coding Summary CODING DATE: 04/27/[address] [facility] STATUS: Home PAYOR: Medicaid HMO ADMIT DX: REASON FOR VISIT DX: D50.9 Iron deficiency anemia, unspecified FINAL DX: PRINCIPAL: D50.9 Iron deficiency anemia, unspecified SECONDARY: PROCEDURES DOCTOR NAME DATE NOTE: The code number assigned matches the documented diagnosis and / or procedure in the patient's chart. However, the narrative phrase printed from the coding software may appear abbreviated, or result in slightly different terminology. Coded By: Valerie Patel Date Saved: 04/27/2018 10:05 am [facility] Progress Note - Nurseon Progress Note - Nurse Pre-op call done, instructed to arrive @ 0600 on 04-28-18, NPO after midnight-verbalized understanding. [Electronically Signed on: 04/27/2018 11:23 EST] Lindsey Hilliard RN [Verified on: 04/27/2018 11:23 EST] Lindsey Hilliard RN Normal [facility] .Auto Diff 1on 04-22-2018 Auto [place] % 7 % Normal 1-12 [facility] Comment on above: Performed By: #### 7 [id number], [id number] #### [facility] (DEFAULT) [address] [place] [address]12 Baso Abs# 0.0 x10 Normal 0.0-0.2 [facility] Comment on above: Performed By: #### 7 [id number], [id number] #### [facility] (DEFAULT) [address] [place] [address] 84261 Basophils/100 WBC (Bld) 0.1 % Low 0.2-2.0 [facility] Comment on above: Performed By: #### 7 [id number], [id number] #### [facility] (DEFAULT) [address] [place] [address] 16551 Eos Abs# 0.1 x10 Normal 0.0-0.4 [facility] Comment on above: Performed By: #### 7 [id number], [id number] #### [facility] (DEFAULT) [address] [place] [address] 37095 Eosinophils/100 WBC (Bld) 1.8 % Normal 0.9-4.0 [facility] Comment on above: Performed By: #### 7 [id number], [id number] #### [facility] (DEFAULT) [address] [place] [address] 99370 Lymphocytes (Bld) [#/Vol] 2.0 x10 Normal 1.3-2.9 [facility] Comment on above: Performed By: #### 7 [id number], [id number] #### [facility] (DEFAULT) [address] [place] [address] 13586 Lymphocytes/100 WBC (Bld) 30 % Normal 14-48 [facility] Comment on above: Performed By: #### 7 [id number], [id number] #### [facility] (DEFAULT) [address] [place] [address] 32760 Uinta Abs# 0.5 x10 Normal 0.0-0.8 [facility] Comment on above: Performed By: #### 7 [id number], [id number] #### [facility] (DEFAULT) [address] [place] [address] 46522 Neut Abs# 4.2 x10 Normal 1.5-9.2 [facility] Comment on above: Performed By: #### 7 [id number], [id number] #### [facility] (DEFAULT) [address] [place] [address] 81735 Neutrophils/100 WBC (Bld) 61 % Normal 44-88 [facility] Comment on above: Performed By: #### 7 [id number], [id number] #### [facility] (DEFAULT) [address] [place] [address] 38933 CBC w/ Auto Diffon 8 Erythrocyte distribution width (RBC) [Ratio] 14.9 % Normal 11.5-15.0 [facility] Comment on above: Performed By: #### 7 [id number], [id number] #### [facility] (DEFAULT) [address] [place] [address] Hematocrit (Bld) [Volume fraction] 39.5 % Normal 33.7-40.4 [facility] Comment on above: Performed By: #### 7 [id number], [id number] #### [facility] (DEFAULT) [address] [place] [address] Hemoglobin (Bld) [Mass/Vol] 13.5 g/dL Normal 11.3-15.9 [facility] Comment on above: Performed By: #### 7 [id number], [id number] #### [facility] (DEFAULT) [address] [place] [address] Man Diff? Auto Normal [facility] Comment on above: Performed By: #### 7 [id number], [id number] #### [facility] (DEFAULT) [address] [place] [address] 03487 MCH (RBC) [Entitic mass] 28 pg Normal 24-34 [facility] Comment on above: Performed By: #### 7 [id number], [id number] #### [facility] (DEFAULT) [address] [place] [address] 57116 MCHC (RBC) [Mass/Vol] 34 g/dL Normal 26-37 [facility] Comment on above: Performed By: #### 7 [id number], [id number] #### [facility] (DEFAULT) [address] [place] [address] 11755 MCV (RBC) [Entitic vol] 82 fL Normal 81-100 [facility] Comment on above: Performed By: #### 7 [id number], [id number] #### [facility] (DEFAULT) [address] [place] [address] 40711 Platelet mean volume (Bld) [Entitic vol] 9.1 fL Normal 6.3-10.2 [facility] Comment on above: Performed By: #### 7 [id number], [id number] #### [facility] (DEFAULT) [address] [place] [address] 49386 Platelets (Bld) [#/Vol] 240 x10 Normal 138-427 [facility] Comment on above: Performed By: #### 7 [id number], [id number] #### [facility] (DEFAULT) [address] [place] [address] 23522 RBC (Bld) [#/Vol] 4.81 x10 Normal 3.70-5.30 [facility] Comment on above: Performed By: #### 7 [id number], [id number] #### [facility] (DEFAULT) [address] [place] [address] 50834 WBC (Bld) [#/Vol] 6.8 x10 [facility] Comment on above: Performed By: #### 7 [id number], [id number] #### [facility] (DEFAULT) [address] [place] [address] 37845 Vital Signs Date Time Vital Sign Value Performing Clinician Jose sales 10-17-2023 12:00-0400 Body height 167.6 cm Nena Madden MD Work Phone: [employer] [facility] 10-17-2023 12:00-0400 Body mass index (BMI) [Ratio] 35.02 kg/m2 Ehad Maryanne MD Work Phone: [employer] [facility] 10-17-2023 12:00-0400 Body weight 98.43 kg Nena Madden MD [facility] [employer] 10-17-2023 12:00-0400 Diastolic blood pressure 91 mm[Hg] [facility] 10-17-2023 12:00-0400 Heart rate 84 /min [facility] 10-17-2023 12:00-0400 Systolic blood pressure 127 mm[Hg] [facility] 12-25-2021 12:56-0400 Body height 167.64 cm [employer] 12-25-2021 12:56-0400 Body mass index (BMI) [Ratio] 39.38 kg/m2 [employer] 12-25-2021 12:56-0400 Body surface area Derived from formula 2.27 m2 [employer] 12-25-2021 12:56-0400 Body weight 110.68 kg [employer] 12-25-2021 12:56-0400 Diastolic blood pressure 68 mm[Hg] [employer] 12-25-2021 12:56-0400 Heart rate 76 /min [employer] 12-25-2021 12:56-0400 Systolic blood pressure 122 mm[Hg] [employer] Encounters Encounter Date Encounter Type Care Provider Facility Start: 01-03-2025 End: 01-03-2025 ambulatory Alonzo Ayoub MD Facility: [facility] Start: 03-05-2024 End: 03-05-2024 Office outpatient visit 15 minutes [facility] Madd[facility] Comment on above: Neuritis of left manuel t (Primary Dx); Nerve pain; Depression, unspecified depression type; Anxiety; Chronic pain in left foot; Gait instability Start: 03-05-2024 End: 03-05-2024 ambulatory [facility] Start: 11-08-2023 End: 11-08-2023 ambulatory [facility] Start: 10-17-2023 End: 10-17-2023 Office outpatient visit 25 minutes N[facility] Madden MD [facility] Comment on above: Neuritis of left manuel t (Primary Dx); Nerve pain; Depression, unspecified depression type; Anxiety; Chronic pain in left foot; Hip pain; Gait instability Start: 10-17-2023 End: 10-17-2023 [facility] Start: 10-16-2023 End: 10-16-2023 Emergency department patient visit NO PCP NO PCP [facility] Start: 08-04-2023 End: 08-04-2023 Emergency department patient visit NO PCP NO PCP [facility] Start: 07-27-2023 End: 07-28-2023 Emergency department patient visit DAMON RUTH [facility] Start: 07-27-2023 End: 07-27-2023 Emergency department patient visit NO PCP NO PCP [facility] Start: 07-20-2023 End: 07-20-2023 Emergency department patient visit KAYLEIGH LOZADA [facility] Start: 12-25-2021 Split Bobbi regalado Other [facility] Office Start: 11-12-2017 End: 11-12-2017 Patient encounter procedure MEHRDAD ZAPATA Facility:[facility]1 Procedures Date Procedure Procedure Detail Performing Clinician Start: 10-17-2023 Follow-up visit Follow-up NENA YOU Start: 04-22-2022 Adult depression screening assessment Nena Madden MD Work Phone: Start: 12-25-2021 Nerve conduction grace dies 3-4 studies Cassie Guzman Plan of Treatment Date Care Activity Detail Author Start: 04-06-2025 DTaP,Tdap and Td Vaccines (6 - Td or Tdap) DTaP,Tdap and Td Vaccines (6 - Td or Tdap) [facility] Start: 10-26-2024 Adult BMI Screening Adult BMI Screen ing [facility] Start: 10-16-2024 Adult BMI Follow Up Plan Adult BMI Follow Up Plan [facility] Start: 10-16-2024 Adult BMI Screening Adult BMI Screen ing [facility] Start: 10-16-2024 Tobacco Screening Tobacco Screening [facility] Start: 03-05-2024 End: 03-05-2024 Patient encounter procedure 03/05/2024 3:00 PM EDT Office Visit [facility] [address] [place] [id number] Nena Madden MD [address] [place] [address], [address] [place] [address] [facility] Start: 02-22-2024 COVID-19 Vaccine ( season) COVID-19 Vaccine ( season) [facility] Start: 10-29-2023 End: 10-29-2023 Patient encounter procedure 10/29/2023 6:45 AM EDT Appointment [facility] [address] [place] [id number] Nena Madden MD [address] [place] [address], [address] [place] [address] [facility] Start: 10-17-2023 End: 10-16-2024 MR Foot - left WO and W contrast IV MR foot left with and without contrast Imaging Routine Neuritis of left foot Chronic pain in left foot Expected: 10/17/2023, Expires: 10/16/2024 [employer] Work Phone: Comment on above: Expected: 10/17/2023 , Expires: 10/16/2024 Start: 04-22-2023 Depression Screening Depression Scre ening [facility] [employer] Start: 04-10-2023 Adult BMI Follow Up Plan Adult BMI Follow Up Plan [facility] Start: 02-21-2023 COVID-19 Vaccine ( season) COVID-19 Vaccine ( season) [facility] [employer] [facility] Immunizations Immunization Date Immunization Notes Care Provider Fa cility 05-24-2021 COVID-19, mRNA, LNP- S, PF, 100mcg/0.5mL Dose Nena Madden MD Work Phone: [facility] [employer] NEGATED: Highlighted row has not occurred!10-05-2017 measles, mumps and rubella virus vaccine Nena Madden MD Work Phone: [facility] [employer] Comment on above: Deferred: Other - IM MUNE NEGATED: Highlighted row has not occurred!10-05-2017 tetanus toxoid, reduced diphtheria toxoid, and acellular pertussis vaccine, adsorbed Nena Madden MD Work Phone: [facility] [employer] NEGATED: Highlighted row has not occurred!10-05-2017 varicella virus vaccine Nena Madden MD Work Phone: [facility] [employer] NEGATED: Highlighted row has not occurred!10-03-2017 tetanus toxoid, reduced diphtheria toxoid, and acellular pertussis vaccine, adsorbed Nena Madden MD Work Phone: [facility] [employer] Comment on above: Deferred: - PT HAD W ITH LAST Payers Date Payer Category Payer Unknown 2003 Medicaid [place] [employer] [employer] [id number] 2003-Present [phone] [address] [place] [address] [id number] 2003 Medicaid [facility]MO [facility] [id number] 1994 Unknown [id number] 1994 Unknown [id number] [id number] 1994 Unknown [id number] [id number] 1994 Unknown [id number] [id number] 1994 Unknown [id number] [id number] 1994 Unknown [id number] [id number] 1994 Unknown [id number] [id number] 1994 Unknown [id number] [id number] 1994 Unknown [id number] [id number]86 1994 Unknown [id number] [id number] 1959 Unknown [id number] Social History Date Type Detail Facility Start: Smoker [employer] Start: 04-10-2022 Tobacco smoking stat us LAIS Never smoked tobacco [facility] Start: 04-10-2022 Tobacco use and exposure Smoke less tobacco non-user [facility] Start: 10-17-2023 End: 06-28-2024 Alcoholic beverage intake Current non-drinker of alcohol (finding) [facility] Start: 01-19-2019 End: 07-11-2020 History of Social function [facility] Start: 01-19-2019 End: 07-11-2020 Social connection and isolation panel [facility] Frequency of Communication with Friends and Family Three times a week [facility] Start: 01-19-2019 Education 12 [facility] Start: 1995 Sex assigned at Not on file P [facility] Start: 01-26-2015 Sex Female (finding) [facility] History of Present illness Narrative 03-05-2024 Nena Madden MD - 03/05/2024 3:00 PM EDT Note Date & Type Note Facility 03-05-2024 History of Present illness Narrative Images from the original note were not included. [id number] [place] Ocampo [facility] [id number] Patient: Wale Delgado Date of : 1995 Encounter Date: 03/05/2024 Patient Care Team: No Pcp No Pcp as PCP - General (Family Medicine) Patient Location: (Home) Patient Consent obtained: yes, (Verbal) Prior to beginning this clinical portion of this visit, the patient/family has verbally consented to the use of this telemedicine E-visit and initiated the contact. They have also consented to using [employer] as a communications platform, understanding the privacy limitations, and telehealth and HIPAA waivers as established in the CMS expansion of telehealth benefits under the 1135 waiver authority and the Coronavirus Preparedness and Response Supplemental Appropriations Act Dated August and as summarized in September 07, 2019 [facility] FAQ on the Coronavirus (COVID-19) public health emergency. History of Present Illness: The patient is a 29 y.o. female, an established patient, and is here for left foot pain and numbness. She was last seen in clinic on 10/17/2023. Summary of Condition: Hand preference: Right. The patient reports that she dropped a gallon of milk on the front part of her left foot about 3 years ago. She recalls having severe pain, swelling and bruising of the left foot immediately after the injury. She did not seek medical help at that time, as she did not believe the injury was that severe. She was expecting her symptoms to resolve with time: And although the swelling and bruising did resolve within a few days, patient reports persistence of left foot pain and paresthesias. She subsequently had x-rays of the left foot , which ruled out any osseus or articular problems. She reports that the symptoms(sharp burning pain affecting the dorsal and plantar aspect of anterior 2/3 of the left foot) are persistent, and are exacerbated by tactile stimulus, bearing weight on the left foot, walking. She also reports having intermittent numbness affecting the anterior part of the left foot. She denies any weakness or incoordination affecting the left or right lower extremity. She denies any dermatological problems, such as atrophy/desquamation/callus formation/erythema of the left foot. Patient denies a history of autoimmune/vasculitic disorders. Patient denies associated visual impairment, headache, nausea, vomiting, chest pain, shortness of breath, involuntary movement, tremors, neck pain, incontinence, ataxia, falls, left footdrop, behavioral disturbance, hallucinations, fever, rash, constitutional symptoms, unintentional weight loss. Patient reports gradual worsening of symptoms affecting the left foot, ever since onset. She denies further trauma to the left foot. She denies similar symptoms in the other extremities. Patient is currently independent with ADLs and IADLs. Ambulating without any assistive devices. EMG/NCS of the lower extremities on 12/25/21 was a completely normal study. Did not show evidence of mononeuropathy, polyneuropathy, plexopathy, myopathy or radiculopathy. 04/10/22: Patient was subsequently started on Lyrica 50 mg t.i.d. and Voltaren gel 1% for pain control. Patient reported significant decrease in severity of pain with the combination of Lyrica and Voltaren gel. She could ambulate up till 1 mi every day as a result. She was not able to walk that much previously. She continued to have left foot pain, usually with movement or walking, daily basis: However symptoms had become much more manageable since initiating Lyrica and Voltaren gel 1%. patient was independent with ADLs and IADLs. Ambulates without any assistive devices. 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 She attributed worsening of symptoms to increased walking required at her new job. Was prescribed gabapentin by another physician at some point, however it did not seem to help with the symptoms as much as the Lyrica was doing previously. Was also given a trial of capsaicin 0.1 % cream. Interval History(03/05/24): - continues to have frequent pain And paresthesias affecting the anterior part of the left foot. Did not report any significant improvement with gabapentin. The patient would like to revert to pregabalin, as it appeared to help more with her symptoms. Continues to take tizanidine 2 mg b.i.d. p.r.n. for symptomatic relief for severe breakthrough pain, and reports that she tries to minimize using it as much as possible due to associated lethargy and fatigue. - continues to use Voltaren 1% gel, capsaicin 0.1% ointment as needed in both appear to help mildly for breakthrough pain. - she had previously seen orthopedic surgery for left foot pain. Previous left foot x-rays were unremarkable. The patient has not followed up with Orthopedic surgery for more than 2 years now. - Patient denies any focal weakness, sensory disturbances affecting the other extremities, incontinence, visual impairment, chest pain, sob, ataxia, falls, involuntary movements. - appears to be reasonably independent with ADLs and IADLs. - Denies having any ER visits due to breakthrough pain. Wale has a past medical history of Anemia, Asthma, Cystic fibrosis carrier, History of chlamydia, History of pre-eclampsia, History of delivery, IBS (irritable bowel syndrome), Migraines, and Recurrent UTI (urinary tract infection). Wale has a past surgical history that includes Cholecystectomy (07/26/2016); Dilation and curettage of uterus (N/A, 10/03/2017); Tubal ligation; Hysterectomy; and Bariatric Surgery. Allergies: Patient has no known allergies. Review of Relevant Patient Questionnaires: HIT 6: No data to display PHQ-9: 04/22/2022 11:27 AM 11/09/2021 9:33 AM 09/13/2021 10:14 AM 04/19/2021 10:51 AM 02/20/2021 10:00 AM 01/03/2021 1:37 PM 12/21/2020 8:00 AM PM AMB PHQ 9 Little interest or pleasure in doing things 2 1 0 0 0 3 0 Feeling down, depressed, or hopeless 0 0 0 0 0 0 0 Trouble falling or staying asleep, or sleeping too much 2 1 0 0 3 Feeling tired or having little energy 2 1 0 0 3 Poor appetite or overeating 0 0 2 0 0 Feeling bad about yourself - or that you are a failure or have let yourself or your family down 0 0 0 0 0 Trouble concentrating on things, such as reading the newspaper or watching television 3 0 2 0 0 Moving or speaking so slowly that other people could have noticed. Or the opposite - being so fidgety or restless that you have been moving around a lot more than usual 3 1 3 1 1 Thoughts that you would be better off , or of hurting yourself in some way 0 0 0 0 0 Total Score 12 4 7 0 1 10 0 If you checked off any problems, how difficult have these problems made it for you to do your work, take care of things at home, or get along with other people? Somewhat difficult Somewhat difficult Somewhat difficult Not difficult at all Very difficult PHQ-15: No data to display SHERLEY-7: 04/22/2022 11:00 AM 09/13/2021 10:00 AM 02/20/2021 10:00 AM 01/03/2021 1:00 PM 12/21/2020 8:00 AM 08/09/2020 11:00 AM 08/13/2019 11:00 AM PM AMB SHERLEY 7 Feeling nervous, anxious or on edge 1 0 1 3 1 2 0 Not being able to stop or control worrying 0 0 0 2 0 1 1 Worrying too much about different things 0 0 0 1 3 0 1 Trouble relaxing 1 2 0 1 1 3 0 Being so restless that it is hard to sit still 1 2 1 1 0 1 0 Becoming easily annoyed or irritable 1 2 0 1 1 1 0 Feeling afraid as if something awful might happen 0 0 0 1 0 0 0 SHERLEY-7 Total Score 4 6 2 10 6 8 2 PTSD: No data to display [place]: No data to display MELANIE-10: No data to display Past Medical, Family, Surgical, and Social History Update: The following portions of the patient's history were reviewed and updated as appropriate: allergies, current medications, past family history, past medical history, past social history, past surgical history and problem list. Past Medical History: Diagnosis Date Anemia Asthma Cystic fibrosis carrier History of chlamydia History of pre-eclampsia History of delivery x3 IBS (irritable bowel syndrome) Migraines Recurrent UTI (urinary tract infection) Family History Problem Relation Age of Onset Migraines Mother Migraines Father Depression Father Migraines Brother Depression Paternal Grandmother Parkinsonism Paternal Grandmother Past Surgical History: Procedure Laterality Date BARIATRIC SURGERY CHOLECYSTECTOMY 07/26/2016 DILATION AND CURETTAGE N/A 10/03/2017 Performed by Kam Tyson MD at [facility] HYSTERECTOMY TUBAL LIGATION Current Outpatient Medications Medication Sig Dispense Refill albuterol (PROVENTIL HFA) 90 mcg/actuation inhaler Inhale 2 puffs as needed for wheezing. 18 g 0 benzonatate (TESSALON PERLES) 100 mg capsule Take 1 capsule (100 mg total) by mouth 3 (three) times a day as needed for cough. 21 capsule 0 capsaicin (CAPZASIN-HP) 0.1 % cream Apply 1 Application topically 3 (three) times a day. Apply to left foot for symptomatic pain relief. 42.5 g 2 diclofenac sodium (VOLTAREN) 1 % gel Apply 2 g topically 3 (three) times a day as needed (CC: left foot swelling and pain). CC: left foot swelling and pain 100 g 3 dicyclomine (BENTYL) 20 mg tablet TAKE 1 TABLET BY MOUTH IN THE MORNING, AT NOON, IN THE EVENING AND AT BEDTIME 120 tablet 1 hydrOXYzine (ATARAX) 25 mg tablet TAKE 1 TABLET BY MOUTH EVERY 6 HOURS NEEDED FOR ANXIETY 120 tablet 0 PARoxetine (PAXIL) 40 mg tablet Take 1 tablet (40 mg total) by mouth in the morning. 90 tablet 1 pregabalin (LYRICA) 50 mg capsule Take 2 capsules (100 mg total) by mouth in the morning and 2 capsules (100 mg total) before bedtime. 120 capsule 5 propranoloL (INDERAL) 20 mg tablet TAKE 1 TABLET BY MOUTH 2 TIMES A DAY FOR 180 DAYS. 180 tablet 1 SUMAtriptan (IMITREX) 50 mg tablet May repeat in 2 hours if unresolved. Do not exceed 200 mg in 24 hours. 9 tablet 5 tiZANidine (ZANAFLEX) 2 mg tablet Take 1 tablet (2 mg total) by mouth 2 (two) times a day as needed for muscle spasms (CC: severe left foot breakthrough pain). 60 tablet 1 No current facility-administered medications for this visit. (All medications reviewed and updated by provider since last office visit or hospitalization) Tobacco History: Social History Tobacco Use Smoking Status Never Smokeless Tobacco Never (If patient a smoker, smoking cessation counseling offered) Social History: Social History Substance and Sexual Activity Alcohol Use No Review of Systems: 14 systems were reviewed and negative except those mentioned in HPI . Physical Exam: Vitals: There were no vitals filed for this visit. Patient consulted for exercise: encouragement to exercise. Neurological Physical Exam: Physical Exam: Mental Status: Orientation: Oriented. Level of consciousness: alert. Follows commands: 3 step. Knowledge: good. Intact short-term memory and intact long-term memory. Vocabulary is normal. Memory: Appears normal. Attention span is normal. Concentration is normal. Speech: Normal quality and patient has normal vocabulary. Language: Normal. Cranial Nerves: CN II: Visual deutsch full to confrontation. CN II - Visual Acuity: Normal in right eye and left eye. Optic Discs: No pallor/atrophy on right or left. No edema on right or left. Pupils: Relative afferent pupillary defect absent. CN III, IV, : CN III: PERRLA, EOM full, no nystagmus, no ptosis and no KATIE. Pupils: right pupil regular and left pupil regular. Pupil Size: right = left. Pupil reactivity: Right and left pupil constrict(s) to light. Right and left pupil appropriately dilates in dark. Consensual response intact on right and Consensual response intact on left. Nystagmus: end-gaze only positive. CN V: Facial sensation intact to pin. CN VII: Facial expression fully symmetric. CN VIII: CN VIII normal. Hearing intact. CN IX, X: CN IX and X normal. CN XI: CN XI normal. CN XII: CN XII normal. Tongue protrudes midline. Cranial Nerve comments: [place]-Hallpike maneuver is negative bilaterally.. Motor: Muscle Bulk: Normal. Muscle Tone: Normal. Power: Pronator drift: None. Bradykinesia: None. Muscle Strength: Normal strength throughout except mild giveaway type weakness 4+/5 of left dorsiflexion and plantar flexion appreciated. Strength is most likely limited by pain/hyperesthesias.. Fasciculations: No Myotonia: No myotonia. Sensory: Light touch normal in upper and lower extremities. Vibration normal in upper and lower extremities. Proprioception: Normal in upper and lower extremities. Temperature: . Hyperesthesia appreciated across the dorsum and plantar aspect of anterior 2/3 of the left foot, particularly severe at the base of the big toe.. Gait/Coord/DTR: Abnormal Gait: left limp and abnormal gait. Able to tandem walk. Unable to heel walk on right and unable to heel walk on left. Coordination: Normal. Tremor: Absent. Involuntary Movements: no abnormal movement. Myoclonus: None. Reflexes: Right brachioradialis 2+ Left brachioradialis 2+ Right biceps 2+ Left biceps 2+ Right triceps 2+ Left triceps 2+ Right patellar 2+ Left patellar 2+ Right achilles 2+ Left achilles 2+ Right plantar downgoing Left plantar downgonig Right ankle clonus absent and left ankle clonus absent. Right pendular knee jerk absent and left pendular knee jerk absent. General Exam: Constitutional: Overweight . Eyes: Normal appearance, no icterus. Psychiatric: Normal mood/affect, behaving normally, normal thought content, normal judgment and psychomotor agitation. Psychiatric: eye contact abnormal. Psychiatric: Anxious.. Pulmonary: Effort: Pulmonary effort is normal. Data Reviewed: Lab Results Component Value Date CREATININE 0.80 12/24/2020 BUN 10 12/24/2020 K 3.4 (L) 12/24/2020 CL 105 12/24/2020 CO2 23 12/24/2020 Lab Results Component Value Date WBC 5.8 12/24/2020 HGB 13.8 12/24/2020 HCT 40.8 12/24/2020 MCV 88 12/24/2020 PLT 213 12/24/2020 Lab Results Component Value Date ALT 14 10/19/2016 AST 18 10/19/2016 ALKPHOS 70 07/23/2016 Lab Results Component Value Date INR 1.1 07/25/2016 PROTIME 12.9 (H) 07/25/2016 No results found for: PTT Diagnostic Study Results: CT No results found. CTA No results found. MRI No results found. Angio No results found. Assessment and Plan: Diagnoses and all orders for this visit: Neuritis of left foot - pregabalin (LYRICA) 50 mg capsule; Take 2 capsules (100 mg total) by mouth in the morning and 2 capsules (100 mg total) before bedtime. Nerve pain - pregabalin (LYRICA) 50 mg capsule; Take 2 capsules (100 mg total) by mouth in the morning and 2 capsules (100 mg total) before bedtime. Depression, unspecified depression type Anxiety Chronic pain in left foot Gait instability The patient is a 28-year-old right-handed female, with past medical history of generalized anxiety disorder, depression, episodic vertigo, migraines, who is following up in the neurology clinic for left foot pain and sensory disturbances. She was last seen in clinic on 10/17/2023. Patient reports onset of symptoms after she had dropped a gal of milk on the anterior part of her left foot, roughly 5 years ago. Initially she had swelling and bruising associated with the pain, which seemed to resolve within a few days. However she reports persistence of sharp burning pain affecting the dorsum and plantar aspect of the anterior 2/3 of the left foot, since that time. She also reports occasional numbness affecting the same area. She denies any weakness or incoordination affecting the left foot however reports that when the pain is severe her walking is affected. She denies having any falls or other neurological symptoms associated with the left foot symptoms. Reports worsening of symptoms since onset, however there does not seem to be any clear exacerbating/causative etiology. EMG/NCS of the lower extremities on 12/25/21 was a completely normal study. Did not show evidence of mononeuropathy, polyneuropathy, plexopathy, myopathy or radiculopathy. 04/10/22--> Patient was subsequently started on Lyrica 50 mg(later increased to 100 mg) t.i.d. and Voltaren gel 1% for pain control. Patient had reported significant decrease in severity of pain with the combination of Lyrica and Voltaren gel. She could ambulate up till 1 mi every day as a result. She continued to have left foot pain, usually with movement or walking, daily basis: However symptoms had become much more manageable since initiating Lyrica and Voltaren gel 1%. patient was independent with ADLs and IADLs. Ambulates without any assistive devices. Interval History(03/05/24): - continues to have frequent pain And paresthesias affecting the anterior part of the left foot. Did not report any significant improvement with gabapentin. The patient would like to revert to pregabalin, as it appeared to help more with her symptoms. Continues to take tizanidine 2 mg b.i.d. p.r.n. for symptomatic relief for severe breakthrough pain, and reports that she tries to minimize using it as much as possible due to associated lethargy and fatigue. - continues to use Voltaren 1% gel, capsaicin 0.1% ointment as needed in both appear to help mildly for breakthrough pain. - she had previously seen orthopedic surgery for left foot pain. Previous left foot x-rays were unremarkable. The patient has not followed up with Orthopedic surgery for more than 2 years now. - Patient denies any focal weakness, sensory disturbances affecting the other extremities, incontinence, visual impairment, chest pain, sob, ataxia, falls, involuntary movements. - appears to be reasonably independent with ADLs and IADLs. - Denies having any ER visits due to breakthrough pain. Current neurological examination is unremarkable except for hyperesthesia affecting the dorsum and plantar aspect of the anterior 2/3 of the left foot. Webspace between the great toe in the 2nd toe appears to be exquisitely tender, with a small, rounded, soft fleshy mass palpated in the webspace. Patient is currently ambulating with an antalgic gait. Tries to keep the weight off the left foot. Clinical impression: Traumatic superficial nerve injury/left foot--> despite supportive care, patient continues to have disabling left foot pain. Recommendations: -after discussing pros and cons, will switch the patient back to Lyrica 100 mg b.i.d.. for maintenance. We will continue using tizanidine 2 mg b.i.d. p.r.n. for breakthrough pain and muscle cramping. Side effect profile was discussed with the patient in detail again. - the patient will continue using Voltaren gel 1%, to help with the swelling and hypersensitivity. will continue using capsaicin 0.1% cream/ointment for symptomatic relief as well. - supportive care. - regular follow-up with PCP. - return to clinic in six months. Problem List Nervous and Auditory Neuritis of left foot - Primary Relevant Medications pregabalin (LYRICA) 50 mg capsule Nerve pain Relevant Medications pregabalin (LYRICA) 50 mg capsule Other Depression Anxiety Follow-up: 6 months Nena Madden MD Vascular Neurologist [facility] Neurology ([facility]) I have personally participated in the care of this patient. I have reviewed all pertinent clinical information, including history, physical exam, investigation results and plan. I spent 25 minutes caring for this patient, and more than 50% of that time was spent on counseling the patient/bed setter/care team and coordinating care. Important Notice: This note was created with the assistance of a speech recognition program. While intending to generate a timely document that accurately reflects the content of the encounter, no guarantee can be provided that every grammatical or spelling mistake has been or will be identified or corrected. Thank you for your understanding. This is a telemedicine visit. Verbal and/or written consent to participate in video visit was obtained. This visit occurred during in a Coronavirus (COVID-19) Public Health Emergency. I discussed with the patient the nature of his/her telemedicine visits that: - I would evaluate the patient and recommend diagnostics and treatments based on my assessment. - our sessions are not being recorded and that personal health information is being protected to the best of my ability. - our team would provide follow-up care in person if/ when the patient needs it. documented in this encounter [facility] History of Present illness Narrative 10-17-2023 Nena Madden MD - 10/17/2023 12:00 PM EDT Note Date & Type Note Facility 10-17-2023 History of Present illness Narrative Images from the original note were not included. [address] [facility] [id number] Patient: Wale Delgado Date of : 1995 Encounter Date: 10/17/2023 Patient Care Team: No Pcp No Pcp as PCP - General (Family Medicine) History of Present Illness: The patient is a 28 y.o. female, an established patient, and is here for left foot pain and numbness. She was last seen in clinic on 04/10/2022. Summary of Condition: Hand preference: Right. The patient reports that she dropped a gallon of milk on the front part of her left foot 3 years ago. She recalls having severe pain, swelling and bruising of the left foot immediately after the injury. She did not seek medical help at that time, as she did not believe the injury was that severe. She was expecting her symptoms to resolve with time: And although the swelling and bruising did resolve within a few days, patient reports persistence of left foot pain and paresthesias. She subsequently had x-rays of the left foot , which ruled out any osseus or articular problems. She reports that the symptoms(sharp burning pain affecting the dorsal and plantar aspect of anterior 2/3 of the left foot) are persistent, and are exacerbated by tactile stimulus, bearing weight on the left foot, walking. She also reports having intermittent numbness affecting the anterior part of the left foot. She denies any weakness or incoordination affecting the left or right lower extremity. She denies any dermatological problems, such as atrophy/desquamation/callus formation/erythema of the left foot. Patient denies a history of autoimmune/vasculitic disorders. Patient denies associated visual impairment, headache, nausea, vomiting, chest pain, shortness of breath, involuntary movement, tremors, neck pain, incontinence, ataxia, falls, left footdrop, behavioral disturbance, hallucinations, fever, rash, constitutional symptoms, unintentional weight loss. Patient reports gradual worsening of symptoms affecting the left foot, ever since onset. She denies further trauma to the left foot. She denies similar symptoms in the other extremities. Patient is currently independent with ADLs and IADLs. Ambulating without any assistive devices. EMG/NCS of the lower extremities on 12/25/21 was a completely normal study. Did not show evidence of mononeuropathy, polyneuropathy, plexopathy, myopathy or radiculopathy. 04/10/22: Patient was subsequently started on Lyrica 50 mg t.i.d. and Voltaren gel 1% for pain control. Patient reported significant decrease in severity of pain with the combination of Lyrica and Voltaren gel. She could ambulate up till 1 mi every day as a result. She was not able to walk that much previously. She continued to have left foot pain, usually with movement or walking, daily basis: However symptoms had become much more manageable since initiating Lyrica and Voltaren gel 1%. patient was independent with ADLs and IADLs. Ambulates without any assistive devices. Interval History(10/17/23): - For a period of a few months, her symptoms were reasonably controlled. 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 She has been walking much more than usual, works 4 hours shifts 5 days a week. Since that time the the left foot pain seems to have increased significantly, average pain rated at 6/10, with maximal level of 9/10. Patient reports that the pain can be severe enough to affect her walking. At times, when the symptoms are severe she has noticed swelling over the 1st and 2nd toes and anterior part of the dorsum of the left foot. The webspace between the great and 2nd toe seems to be exquisitely tender. Occasionally she has noticed pain affecting the anterior plantar aspect of the left foot. She denies any back pain or neck pain. Denies any history of spinal oa. Denies previous history of peripheral neuropathy. She is currently walking with an antalgic gait. Is not requiring any assistive devices. She was in the ER yesterday due to breakthrough pain, however she was only given a new script for gabapentin 300 mg t.i.d. and sent back home. She was recommended to follow up with me for further management of symptoms. - she had previously seen orthopedic surgery for left foot pain. Previous left foot x-rays were unremarkable. The patient has not followed up with Orthopedic surgery for more than 2 years now. - Patient denies any focal weakness, sensory disturbances affecting the other extremities, incontinence, visual impairment, chest pain, sob, ataxia, falls, involuntary movements. - was previously on Lyrica 100 mg b.i.d. however it seems it was subsequently switched to gabapentin 300 mg t.i.d.. Patient is not sure which physician made that change. She continues to use Voltaren 1% gel with mild relief. She was previously prescribed tizanidine 2 mg tablet to be used on an as-needed basis for hip pain and left foot pain. The tizanidine seemed to help moderately with exacerbation of left foot pain. She ran out of the tizanidine a few weeks ago. - appears to be reasonably independent with ADLs and IADLs. Wale has a past medical history of Anemia, Asthma, Cystic fibrosis carrier, History of chlamydia, History of pre-eclampsia, History of delivery, IBS (irritable bowel syndrome), Migraines, and Recurrent UTI (urinary tract infection). Wale has a past surgical history that includes Cholecystectomy (07/26/2016); Dilation and curettage of uterus (N/A, 10/03/2017); Tubal ligation; Hysterectomy; and Bariatric Surgery. Allergies: Patient has no known allergies. Review of Relevant Patient Questionnaires: HIT 6: No data to display PHQ-9: 04/22/2022 11:27 AM 11/09/2021 9:33 AM 09/13/2021 10:14 AM 04/19/2021 10:51 AM 02/20/2021 10:00 AM 01/03/2021 1:37 PM 12/21/2020 8:00 AM PM AMB PHQ 9 Little interest or pleasure in doing things 2 1 0 0 0 3 0 Feeling down, depressed, or hopeless 0 0 0 0 0 0 0 Trouble falling or staying asleep, or sleeping too much 2 1 0 0 3 Feeling tired or having little energy 2 1 0 0 3 Poor appetite or overeating 0 0 2 0 0 Feeling bad about yourself - or that you are a failure or have let yourself or your family down 0 0 0 0 0 Trouble concentrating on things, such as reading the newspaper or watching television 3 0 2 0 0 Moving or speaking so slowly that other people could have noticed. Or the opposite - being so fidgety or restless that you have been moving around a lot more than usual 3 1 3 1 1 Thoughts that you would be better off , or of hurting yourself in some way 0 0 0 0 0 Total Score 12 4 7 0 1 10 0 If you checked off any problems, how difficult have these problems made it for you to do your work, take care of things at home, or get along with other people? Somewhat difficult Somewhat difficult Somewhat difficult Not difficult at all Very difficult PHQ-15: No data to display SHERLEY-7: 04/22/2022 11:00 AM 09/13/2021 10:00 AM 02/20/2021 10:00 AM 01/03/2021 1:00 PM 12/21/2020 8:00 AM 08/09/2020 11:00 AM 08/13/2019 11:00 AM PM AMB SHERLEY 7 Feeling nervous, anxious or on edge 1 0 1 3 1 2 0 Not being able to stop or control worrying 0 0 0 2 0 1 1 Worrying too much about different things 0 0 0 1 3 0 1 Trouble relaxing 1 2 0 1 1 3 0 Being so restless that it is hard to sit still 1 2 1 1 0 1 0 Becoming easily annoyed or irritable 1 2 0 1 1 1 0 Feeling afraid as if something awful might happen 0 0 0 1 0 0 0 SHERLEY-7 Total Score 4 6 2 10 6 8 2 PTSD: No data to display [place]: No data to display MELANIE-10: No data to display Past Medical, Family, Surgical, and Social History Update: The following portions of the patient's history were reviewed and updated as appropriate: allergies, current medications, past family history, past medical history, past social history, past surgical history and problem list. Past Medical History: Diagnosis Date Anemia Asthma Cystic fibrosis carrier History of chlamydia History of pre-eclampsia History of delivery x3 IBS (irritable bowel syndrome) Migraines Recurrent UTI (urinary tract infection) Family History Problem Relation Age of Onset Migraines Mother Migraines Father Depression Father Migraines Brother Depression Paternal Grandmother Parkinsonism Paternal Grandmother Past Surgical History: Procedure Laterality Date BARIATRIC SURGERY CHOLECYSTECTOMY 07/26/2016 DILATION AND CURETTAGE N/A 10/03/2017 Performed by Kam Tyson MD at [facility] HYSTERECTOMY TUBAL LIGATION Current Outpatient Medications Medication Sig Dispense Refill albuterol (PROVENTIL HFA) 90 mcg/actuation inhaler Inhale 2 puffs as needed for wheezing. 18 g 0 benzonatate (TESSALON PERLES) 100 mg capsule Take 1 capsule (100 mg total) by mouth 3 (three) times a day as needed for cough. 21 capsule 0 diclofenac sodium (VOLTAREN) 1 % gel Apply 2 g topically 3 (three) times a day as needed (CC: left foot swelling and pain). CC: left foot swelling and pain 100 g 3 dicyclomine (BENTYL) 20 mg tablet TAKE 1 TABLET BY MOUTH IN THE MORNING, AT NOON, IN THE EVENING AND AT BEDTIME 120 tablet 1 gabapentin (NEURONTIN) 300 mg capsule Take 1 capsule (300 mg total) by mouth 3 (three) times a day for 3 days. 9 capsule 0 hydrOXYzine (ATARAX) 25 mg tablet TAKE 1 TABLET BY MOUTH EVERY 6 HOURS NEEDED FOR ANXIETY 120 tablet 0 PARoxetine (PAXIL) 40 mg tablet Take 1 tablet (40 mg total) by mouth in the morning. 90 tablet 1 propranoloL (INDERAL) 20 mg tablet TAKE 1 TABLET BY MOUTH 2 TIMES A DAY FOR 180 DAYS. 180 tablet 1 SUMAtriptan (IMITREX) 50 mg tablet May repeat in 2 hours if unresolved. Do not exceed 200 mg in 24 hours. 9 tablet 5 capsaicin (CAPZASIN-HP) 0.1 % cream Apply 1 Application topically 3 (three) times a day. Apply to left foot for symptomatic pain relief. 42.5 g 2 tiZANidine (ZANAFLEX) 2 mg tablet Take 1 tablet (2 mg total) by mouth 2 (two) times a day as needed for muscle spasms (CC: severe left foot breakthrough pain). 60 tablet 1 No current facility-administered medications for this visit. (All medications reviewed and updated by provider since last office visit or hospitalization) Tobacco History: Social History Tobacco Use Smoking Status Never Smokeless Tobacco Never (If patient a smoker, smoking cessation counseling offered) Social History: Social History Substance and Sexual Activity Alcohol Use No Review of Systems: 14 systems were reviewed and negative except those mentioned in HPI . Physical Exam: Vitals: Vitals: 10/17/23 1200 BP: (!) 127/91 Pulse: 84 Weight: 98.4 kg (217 lb) Height: 167.6 cm (5' 6 ) Patient consulted for exercise: encouragement to exercise. Neurological Physical Exam: Physical Exam: Mental Status: Orientation: Oriented. Level of consciousness: alert. Follows commands: 3 step. Knowledge: good. Intact short-term memory and intact long-term memory. Vocabulary is normal. Memory: Appears normal. Attention span is normal. Concentration is normal. Speech: Normal quality and patient has normal vocabulary. Language: Normal. Cranial Nerves: CN II: Visual deutsch full to confrontation. CN II - Visual Acuity: Normal in right eye and left eye. Optic Discs: No pallor/atrophy on right or left. No edema on right or left. Pupils: Relative afferent pupillary defect absent. CN III, IV, : CN III: PERRLA, EOM full, no nystagmus, no ptosis and no KATIE. Pupils: right pupil regular and left pupil regular. Pupil Size: right = left. Pupil reactivity: Right and left pupil constrict(s) to light. Right and left pupil appropriately dilates in dark. Consensual response intact on right and Consensual response intact on left. Nystagmus: end-gaze only positive. CN V: Facial sensation intact to pin. CN VII: Facial expression fully symmetric. CN VIII: CN VIII normal. Hearing intact. CN IX, X: CN IX and X normal. CN XI: CN XI normal. CN XII: CN XII normal. Tongue protrudes midline. Cranial Nerve comments: Sixto-Hallpike maneuver is negative bilaterally.. Motor: Muscle Bulk: Normal. Muscle Tone: Normal. Power: Pronator drift: None. Bradykinesia: None. Muscle Strength: Normal strength throughout except mild giveaway type weakness 4+/5 of left dorsiflexion and plantar flexion appreciated. Strength is most likely limited by pain/hyperesthesias.. Fasciculations: No Myotonia: No myotonia. Sensory: Light touch normal in upper and lower extremities. Vibration normal in upper and lower extremities. Proprioception: Normal in upper and lower extremities. Temperature: . Hyperesthesia appreciated across the dorsum and plantar aspect of anterior 2/3 of the left foot, particularly severe at the base of the big toe.. Gait/Coord/DTR: Abnormal Gait: left limp and abnormal gait. Able to tandem walk. Unable to heel walk on right and unable to heel walk on left. Coordination: Normal. Tremor: Absent. Involuntary Movements: no abnormal movement. Myoclonus: None. Reflexes: Right brachioradialis 2+ Left brachioradialis 2+ Right biceps 2+ Left biceps 2+ Right triceps 2+ Left triceps 2+ Right patellar 2+ Left patellar 2+ Right achilles 2+ Left achilles 2+ Right plantar downgoing Left plantar downgonig Right ankle clonus absent and left ankle clonus absent. Right pendular knee jerk absent and left pendular knee jerk absent. General Exam: Constitutional: Overweight . Eyes: Normal appearance, no icterus. Psychiatric: Normal mood/affect, behaving normally, normal thought content, normal judgment and psychomotor agitation. Psychiatric: eye contact abnormal. Psychiatric: Anxious.. Pulmonary: Effort: Pulmonary effort is normal. Webspace between the great toe in the 2nd toe appears to be exquisitely tender, with a small, rounded, soft fleshy mass palpated in the webspace. Exquisite tenderness appreciated on palpation of the webspace. Patient is currently ambulating with an antalgic gait. Tries to keep the weight off the left foot. No erythema, but mild induration appreciated in the 1st webspace of the left foot Data Reviewed: Lab Results Component Value Date CREATININE 0.80 12/24/2020 BUN 10 12/24/2020 K 3.4 (L) 12/24/2020 CL 105 12/24/2020 CO2 23 12/24/2020 Lab Results Component Value Date WBC 5.8 12/24/2020 HGB 13.8 12/24/2020 HCT 40.8 12/24/2020 MCV 88 12/24/2020 PLT 213 12/24/2020 Lab Results Component Value Date ALT 14 10/19/2016 AST 18 10/19/2016 ALKPHOS 70 07/23/2016 Lab Results Component Value Date INR 1.1 07/25/2016 PROTIME 12.9 (H) 07/25/2016 No results found for: PTT Diagnostic Study Results: CT No results found. CTA No results found. MRI No results found. Angio No results found. Assessment and Plan: Wale was seen today for follow-up. Diagnoses and all orders for this visit: Neuritis of left foot - MR foot left with and without contrast; Future - capsaicin (CAPZASIN-HP) 0.1 % cream; Apply 1 Application topically 3 (three) times a day. Apply to left foot for symptomatic pain relief. - tiZANidine (ZANAFLEX) 2 mg tablet; Take 1 tablet (2 mg total) by mouth 2 (two) times a day as needed for muscle spasms (CC: severe left foot breakthrough pain). Nerve pain Depression, unspecified depression type Anxiety Chronic pain in left foot - MR foot left with and without contrast; Future - tiZANidine (ZANAFLEX) 2 mg tablet; Take 1 tablet (2 mg total) by mouth 2 (two) times a day as needed for muscle spasms (CC: severe left foot breakthrough pain). Hip pain - tiZANidine (ZANAFLEX) 2 mg tablet; Take 1 tablet (2 mg total) by mouth 2 (two) times a day as needed for muscle spasms (CC: severe left foot breakthrough pain). Gait instability The patient is a 28-year-old right-handed female, with past medical history of generalized anxiety disorder, depression, episodic vertigo, migraines, who is following up in the neurology clinic for left foot pain and sensory disturbances. Patient reports onset of symptoms after she had dropped a gal of milk on the anterior part of her left foot, roughly 5 years ago. Initially she had swelling and bruising associated with the pain, which seemed to resolve within a few days. However she reports persistence of sharp burning pain affecting the dorsum and plantar aspect of the anterior 2/3 of the left foot, since that time. She also reports occasional numbness affecting the same area. She denies any weakness or incoordination affecting the left foot however reports that when the pain is severe her walking is affected. She denies having any falls or other neurological symptoms associated with the left foot symptoms. Reports worsening of symptoms since onset, however there does not seem to be any clear exacerbating/causative etiology. EMG/NCS of the lower extremities on 12/25/21 was a completely normal study. Did not show evidence of mononeuropathy, polyneuropathy, plexopathy, myopathy or radiculopathy. 04/10/22--> Patient was subsequently started on Lyrica 50 mg(later increased to 100 mg) t.i.d. and Voltaren gel 1% for pain control. Patient had reported significant decrease in severity of pain with the combination of Lyrica and Voltaren gel. She could ambulate up till 1 mi every day as a result. She continued to have left foot pain, usually with movement or walking, daily basis: However symptoms had become much more manageable since initiating Lyrica and Voltaren gel 1%. patient was independent with ADLs and IADLs. Ambulates without any assistive devices. Interval History(10/17/23): - For a period of a few months, her symptoms were reasonably controlled. 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 She has been walking much more than usual, works 4 hours shifts 5 days a week. Since that time the the left foot pain seems to have increased significantly, average pain rated at 6/10, with maximal level of 9/10. Patient reports that the pain can be severe enough to affect her walking. At times, when the symptoms are severe she has noticed swelling over the 1st and 2nd toes and anterior part of the dorsum of the left foot. The webspace between the great and 2nd toe seems to be exquisitely tender. Occasionally she has noticed pain affecting the anterior plantar aspect of the left foot. She denies any back pain or neck pain. Denies any history of spinal oa. Denies previous history of peripheral neuropathy. She is currently walking with an antalgic gait. Is not requiring any assistive devices. She was in the ER yesterday due to breakthrough pain, however she was only given a new script for gabapentin 300 mg t.i.d. and sent back home. She was recommended to follow up with me for further management of symptoms. - she had previously seen orthopedic surgery for left foot pain. Previous left foot x-rays were unremarkable. The patient has not followed up with Orthopedic surgery for more than 2 years now. - Patient denies any focal weakness, sensory disturbances affecting the other extremities, incontinence, visual impairment, chest pain, sob, ataxia, falls, involuntary movements. - was previously on Lyrica 100 mg b.i.d. however it seems it was subsequently switched to gabapentin 300 mg t.i.d.. Patient is not sure which physician made that change. She continues to use Voltaren 1% gel with mild relief. She was previously prescribed tizanidine 2 mg tablet to be used on an as-needed basis for hip pain and left foot pain. The tizanidine seemed to help moderately with exacerbation of left foot pain. She ran out of the tizanidine a few weeks ago. - appears to be reasonably independent with ADLs and IADLs. Current neurological examination is unremarkable except for hyperesthesia affecting the dorsum and plantar aspect of the anterior 2/3 of the left foot. Webspace between the great toe in the 2nd toe appears to be exquisitely tender, with a small, rounded, soft fleshy mass palpated in the webspace. Patient is currently ambulating with an antalgic gait. Tries to keep the weight off the left foot. No erythema, but mild induration appreciated in the 1st webspace of the left foot. DTRs are 2+ throughout. Clinical impression: Traumatic superficial nerve injury/left foot--> despite supportive care, patient continues to have disabling left foot pain. 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 On examination she seems to have developed exquisite tenderness around the 1st webspace of the left foot, raising the suspicion for posttraumatic neuroma. In addition, besides having x-rays of the left foot she has not had better imaging of the foot in the past, to rule out other non-neurologic causes for persistent pain. Recommendations: -after discussing pros and cons, will continue gabapentin 300 mg t.i.d. for maintenance. We will represcribed tizanidine 2 mg b.i.d. p.r.n. for breakthrough pain and muscle cramping. Side effect profile was discussed with the patient in detail again. - the patient will continue using Voltaren gel 1%, to help with the swelling and hypersensitivity. - will give a trial of capsaicin 0.1% cream/ointment for symptomatic relief. - supportive care. - regular follow-up with PCP. - return to clinic in 2-3 months. Problem List Nervous and Auditory Neuritis of left foot - Primary Relevant Medications capsaicin (CAPZASIN-HP) 0.1 % cream tiZANidine (ZANAFLEX) 2 mg tablet Other Relevant Orders MR foot left with and without contrast Nerve pain Other Depression Anxiety Follow-up: 2-3 months Nena Madden MD Vascular Neurologist [facility] Neurology ([facility]) I have personally participated in the care of this patient. I have reviewed all pertinent clinical information, including history, physical exam, investigation results and plan. I spent 30 minutes caring for this patient, and more than 50% of that time was spent on counseling the patient/bed setter/care team and coordinating care. Important Notice: This note was created with the assistance of a speech recognition program. While intending to generate a timely document that accurately reflects the content of the encounter, no guarantee can be provided that every grammatical or spelling mistake has been or will be identified or corrected. Thank you for your understanding. documented in this encounter [facility] Evaluation note Note Date & Type Note Facility Evaluation note Diagnosis Neuritis of left foot- Primary Nerve pain Unspecified neuralgia, neuritis, and radiculitis Depression, unspecified depression type Anxiety Anxiety state, unspecified Chronic pain in left foot Gait instability Abnormality of gait documented in this encounter [facility] Evaluation note Note Date & Type Note Facility Evaluation note Diagnosis Neuritis of left foot- Primary Nerve pain Unspecified neuralgia, neuritis, and radiculitis Depression, unspecified depression type Anxiety Anxiety state, unspecified Chronic pain in left foot Hip pain Pain in joint, pelvic region and thigh Gait instability Abnormality of gait documented in this encounter [facility] Instructions Note Date & Type Note Facility Instructions Not on filedocumented in this en counter [facility] Instructions Note Date & Type Note Facility Instructions Not on filedocumented in this en counter [facility] Summary Purpose Family History No Family History Records FoundNo Family History Records FoundNo Family History Records FoundNo Family History Records Found Advance Directives No Advanced Directives Records Found Date Activated Date Inactivated Comments 10/03/2017 9:38 AM 10/05/2017 5:13 PM Date Activated Date Inactivated Comments 10/03/2017 9:38 AM 10/05/2017 5:13 PM Hospital Course Note DATE OF ADMISSION: 04/28/2018 DATE OF DISCHARGE: 04/29/2018 The patient is a 22 year old single white female, 4, Para 0,404. She came in with a chief complaint of heavy vaginal bleeding with period. She was known to have uterine prolapse with genuine stress urinary incontinence. She tried medical therapy and failed and she decided to come in for a total vaginal hysterectomy. She came in and had a total vaginal hysterectomy. She is postop day 1. She is ambulating and tolerating diet. She is urinating on her own well. She had scant vaginal bloody discharge. She is passing flatus. She is afebrile. She is ready to go home. FINAL DIAGNOSIS: 1. Pelvic organ prolapse. 2. Menorrhagia. 3. Failed medical therapy. 4. Cystocele. SURGICAL OPERATION PROCEDURE: Total vaginal hysterectomy. FINDINGS: Normal sized uterus pending pathology. LABS: Post hemoglobin and hematocrit 13.1 and 38.5. COMPLICATIONS: None. DRUG REACTIONS: None. CONDITION ON DISCHARGE: Stable. DISCHARGE INSTRUCTIONS: No sex, (more content not included)... Note [facility] Clinical Discharge Summary PERSON INFORMATION Name WAEL DELGADO Age 22 Years 94 Sex FEMALE Language Japanese PCP Provider, Unlisted Marital Status Single Med Service Observation Acct# Arrival 04/28/18 05:59:59 Visit Reason SURGERY - TOTAL VAGINAL HYSTERECTOMY Acuity [facility] Address: [address] [facility] [address] Comment: PROVIDER INFORMATION VITALS INFORMATION Vital Sign Triage Latest Temp Oral 36.8 DegC 36.8 DegC Temp Temporal 36.3 DegC 36.6 DegC Temp Intravascular Temp Axillary Temp Rectal 02 Sat 99 % 98 % Respiratory Rate 18 br/min 16 br/min Peripheral Pulse Rate 85 bpm 60 bpm Apical Heart Rate 68 bpm 72 bpm Blood Pressure 129 mmHg / 93 mmHg 104 mmHg / 67 mmHg Comment: MEDICAL INFORMATION Allergy Info: Allergies No known allergies Prescriptions Given: Prescription Display acetaminophen-oxycodone (Percocet 5/325 oral tablet) 1 tab(s), PO, q6hr (int), Instructions: may take 1 or 2 tablets not to exceed 12 t (more content not included)... Note Patient: WALE DELGADO Age: 22 years Sex: FEMALE : [birth year] Associated Diagnoses: None Author: Osmany German DO Postoperative Information Post Operative Note: Post Anesthesia Care Unit. Review / Management Condition: Stable. Assessment Anesthetic outcome No anesthetic complications noted. Plan Transfer/ Discharge: Patient can be discharged from PACU when criteria met. Condition good. [Electronically Signed on: 04/28/2018 12:59 EST] Osmany German DO [Verified on: 04/28/2018 12:59 EST] Osmany German DO Procedure Findings Note Patient: WALE DELGADO Age: 22 years Sex: FEMALE : [birth year] Associated Diagnoses: None Author: Osmany German DO Postoperative Information Post Operative Note: Post Anesthesia Care Unit. Review / Management Condition: Stable. Assessment Anesthetic outcome No anesthetic complications noted. Plan Transfer/ Discharge: Patient can be discharged from PACU when criteria met. Condition good. [Electronically Signed on: 04/28/2018 12:59 EST] Osmany German DO [Verified on: 04/28/2018 12:59 EST] Osmany German DO Reason for Referral Specialty Diagnoses / Procedures Referred By Kam elias Referred To Contact Radiology Diagnoses Neuritis of left foot Chronic pain in left foot Procedures MR foot left with and without contrast Nena Madden MD [address] [place] [address], [address] [address] [address] Phone: [phone] Referral ID Status Reason Start Date Expiration Date V isits Requested Visits Authorized [id number] Pending Review 10/17/2023 10/16/2024 1 1 Additional Source Comments INFORMATION SOURCE (unrecogn ized section and content) DATE CREATED AUTHOR 03/29/2019 [facility] DATE CREATED AUTHOR AUTHOR'S ORGANIZ ATION 03/29/2019 [facility] DATE CREATED AUTHOR AUTHOR'S ORGANIZ ATION 03/07/2024 [place] [facility] DATE CREATED AUTHOR AUTHOR'S ORGANIZ ATION 01/10/2025 [facility] Care Teams (unrecognized sec tion and content) Library Specialist Relationship Specialty Start Date End Date No Pcp, [place] [address] PCP - General Family Medicine 08/04/23 Library Specialist Relationship Specialty Start Date End Date No Pcp, [place] [address] PCP - General Family Medicine 08/04/23 Reason for Visit (unrecogniz ed section and content) Reason Comments Follow-up Injury of left foot, Patient states that nothing has changed and she is in a lot of pain. FOR RECORDS PERTAINING TO PATIENTS WHO ARE OR HAVE BEEN ENROLLED IN A CHEMICAL DEPENDENCY/SUBSTANCEABUSE PROGRAM, SOME INFORMATION MAY BE OMITTED. This clinical summary was aggregated from multiple sources. Caution should be exercised in using it in the provision of clinical care. This summary normalizes information from multiple sources, and as a consequence, information in this document may materially change the coding, format and clinical context of patient data. In addition, data may be omitted in some cases. CLINICAL DECISIONS SHOULD BE BASED ON THE PRIMARY CLINICAL RECORDS. [facility] [employer] [facility]. provides no warranty or guarantee of the accuracy or completeness of information in this document.
[2025-01-31 07:53] VITALS: BP 128/91; PULSE 92; TEMP 36.3; O2SAT 98
[2025-01-31] MEDS: 0.9 % SODIUM CHLORIDE 500 ML IV (07:58)
--- NOTE | 2025-01-31 08:54 | W.PM.PROCNOT ---
Date of procedure: 01/31/25 Pre-op diagnosis: Pain due to left lower extremity complex regional pain syndrome, type I Post-op diagnosis: same as pre-op Procedure: Procedure: Left lumbar sympathetic nerve block Medications: Bupivacaine 0.25% 4cc, normal saline 0.9% 4cc, depomedrol 80mg The patient was seen and examined in the preoperative holding area.? Informed consent was obtained and placed on the chart.? Patient was brought to the medical procedure unit and placed in the prone position where a timeout was completed verifying the correct patient, procedure site, position, and planned special equipment using sterile aseptic technique.? Under direct fluoroscopic visualization a 25-gauge Quincke tipped spinal needle was advanced to the left anterolateral aspect of the L3 vertebral body where Omnipaque dye was injected to show adequate spread.? There was no evidence of vascular or neurologic uptake.? The above-mentioned injectate was then placed in five 2 mL aliquots preceded by negative aspiration. The needle was removed and the surgery site was covered. The same procedure, with the same steps, was then completed on the opposite side. Patient was taken to the postprocedural recovery area and monitored for an appropriate length of time before found suitable for discharge in the accompaniment of a responsible adult. Anesthesia: MAC Surgeon: Alonzo Ayoub Pathology: none sent Condition: stable Disposition: no change
[2025-01-31] MEDS: 0.9 % SODIUM CHLORIDE 10 ML VIAL 5 ML INJ (08:55)
[2025-01-31] MEDS: BUPIVACAINE HCL 0.25% PF 25 MG/10 ML VIAL 4 ML INJ (08:56)
[2025-01-31] MEDS: IOHEXOL 240 MG/ML - 10 ML VIAL 12 MG INJ (08:56)
[2025-01-31] MEDS: LIDOCAINE HCL 2% PF 100 MG/5 ML VIAL 2 ML INJ (08:56)
[2025-01-31] MEDS: METHYLPREDNISOLONE ACETATE 40 MG/ML VIAL INJ (08:56)
[2025-01-31 08:58] VITALS: BP 148/88; PULSE 90; TEMP 37.1; O2SAT 94
[2025-01-31 09:00] VITALS: BP 143/86; PULSE 91; TEMP 37.1; O2SAT 97
== END 2025-01-31 09:21 | disposition home or self-care (01) ==
LOC: SURGOUT 07:41
PROVIDERS: Visit Provider Anesthesiology
PROC: (CPT 1992; principal; 2025-01-31 08:40)
DX: G90.522 Complex regional pain syndrome I of left lower limb (principal)
CPT/HCPCS: 64520; J0665; J1010; J2250; J2704; Q9966

== ENCOUNTER 2025-02-10 14:33 | Outpatient (OUT) | payer OTHER, SELFPAY ==
--- OUTSIDE RECORDS SUMMARY | 2024-12-23 06:30 | XMS_ITS ---
Author Organization [facility] [place] Address [address] [place] [address] Care Team Providers Care Slot Floor Attendant Name Role Phone Venita Resendiz Primary Care Provider [phone] Allergies No Known Allergies REASON FOR VISIT new patient, no pcp in 3 years, concerns about migraines, was on sumatriptan in the past which helped Medications Medication SIG (Take, Route, Frequency, Duration) Notes Start Date End Date Status SUMAtriptan Succinate 100 MG 1 tablet as needed, may take second dose at least 2 hours after first dose up to 2 tablets per day as needed Orally Once a day for 30 days 12/23/2024 Active Albuterol Sulfate HFA Active Meloxicam 5 MG 1 tablet Orally Once a day Active Social History Tobacco Use: Social History Observation Description Date Details (start date - stop date) Never Smoker NA - NA Tobacco Control (Standard) Question Answer Notes Tobacco use: Nonsmoker AUDIT-C (Standard) Question Answer Notes Did you have a drink containing alcohol in the p ast year? No Points 0 Interpretation Negative Problems Problem Type SNOMED Code ICD Code Onset Dates Problem Status W/U Status Risk Notes Problem Migraines (G43.909) Active confirmed Problem Asthma (127070891) Asthma (J45.909) Active confirmed Vital Signs Blood pressure systolic 110 mm Hg 12/24/19 25 Blood pressure diastolic 78 mm Hg 025 Height 67 in 12/23/2024 Weight 247 lbs 12/23/2024 BMI 38.68 kg/m2 12/23/2024 Encounters Encounter Location Date Provider Diagnosis [facility] [address] [place] [address] 12/23/2024 Venita Resendiz Migraines G43.909 Assessments Encounter Date Diagnosis (ICD Code) Assessment Notes Treatment Notes Treatment Clinical Notes Section Notes 12/23/2024 Migraines (ICD-10 - G43.909) Nurtec samples given Plan Of Treatment Medication Medication Name Sig Start Date Stop Date Notes SUMAtriptan Succinate 100 MG 1 tablet as needed, may take second dose at least 2 hours after first dose up to 2 tablets per day as needed Orally Once a day for 30 days 12/23/2024 Treatment Notes Assessment Notes Migraines Nurte samples given Next Appt Details Follow Up: 1 Year,prn, Genevieve n: Progress Notes * Wale FUENTESDOB:1995 (29 yo F)Acc No.[id number]:12/23/2024 New Patient Patient: Wale BARKSDALE Provider: Gt Resendiz ([facility]), SCHOOL CHILD CARE ATTENDANT :1995 A ge:29 Y S ex:Female Date:12/23/2024 Address:[address] [place] [address] [id number] Check In:10:18 AM ESTCheck O ut:10:40 AM EST Subjective: * Chief Complaints: * 1 . New patient, no pcp in 3 years, concerns about migraines, was on sumatriptan in the past which helped. 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 D epression Screening: PHQ-2 (2015 Edition) L ittle interest or pleasure in doing things??Not at all F eeling down, depressed, or hopeless? N ot at all T otal Score 0 * ROS: G eneral/Constitutional: Fever d enies. H eadache d enies. W eight loss?denies. O phthalmologic: Discharge d enies. E ye Pain d enies. I tching and redness d enies. E NT: Nasal discharge d enies. N russ congestion d enies.?Sore throat d enies. C ardiovascular: Chest tightness/ heavy pressure d enies. R apid heart rate d enies. S welling of extremities d enies. C hest pain d enies. ? R espiratory: Productive cough d enies. C hest pain d enies. C ough d enies. S hortness of breath d enies. W heezing d enies. ? G astrointestinal: Abdominal pain d enies. C onstipation d enies. D ecreased appetite d enies. D iarrhea d enies. N ausea d enies. V omiting?denies. G enitourinary: Urinary incontinence d enies. P ainful urination d enies. M usculoskeletal: Patient complaining of l eft foot pain, chronic. B ack pain d enies. N fauzia pain d enies. M uscle aches d enies. S kin: Rash d enies. S kin lesion(s) d enies. ? * Active Problem List J45.909 Asthma Modified On:12/23/2024W/U Status:confirmed G43.909 Migraines Modified On:12/23/2024/U Status:confirmed * Medical History: A rthritis. * Surgical History: g allbladder removed 2016, partial hestercectomy . * Family History: F ather: . M other: alive, cervical cancer, diagnosed with Other malignant neoplasm of unspecified site. B rother(s): alive. S on(s): alive. D simer(s): alive. 2 brother(s) . 2 son(s) , 2 daughter(s) . . * Social History: T obacco Use: T obacco Control (Standard) T obacco use: N onsmoker D rug/Alcohol: A LUIS-C (Standard) D id you have a drink containing alcohol in the past year? N o P oints 0 I nterpretation N egative * Medications: T aking Albuterol Sulfate HFA , Taking Meloxicam 5 MG Capsule 1 tablet Orally Once a day , Medication List reviewed and reconciled with the patient * Allergies: N .K.D.A. Objective: * Vitals: W t:247lbs, Ht: 67 in, BP:110/78mm Hg, BMI:38.68Index, Ht-cm: 170.18 cm, Wt-k.04 kg. * Examination: G eneral Examinations: GENERAL APPEARANCE: a lert and oriented, i n no acute distress. EYES: c onjunctiva normal, sclera non-icteric. EARS: e xternal auditory canals are patent. Tympanic membranes are pearly martin and mobile. NOSE: n ormal external appearance. LYMPH NODES: n ormal, no cervical, axillary, or inguinal adenopathy. LUNGS: c lear to auscultation bilaterally. CARDIO: r egular rate and rhythm, S1, S2 normal. ABDOMEN: s oft, nontender. MUSCULOSKELETAL: G ait and station normal. SKIN: w arm and dry. Assessment: * Assessment: 1. M igrbanners - G43.909 (Primary) Plan: * Treatment: * Preventive Medicine: Screenings/Counseling: B HI ACTION PLAN Above Normal BMI Follow-up D ietary management education, guidance, and counseling * Follow Up: 1 Year,prn * * Electronically signed by Jojo Resendiz , AUTOMATION ENGINEERING TECHNICIAN, AWNING FINISHER.SCHOOL CHILD CARE ATTENDANT.[id number] on 12/27/2024 at 03:45 PM EDT Sign off status: Completed Visit Status: C HK (Check Out) true * Provider: Gt Resendiz ([facility]), SCHOOL CHILD CARE ATTENDANT Date: 0 12/23/2024 Generated for Warren nieto/Dede/eTlashawnsmitting on: 0 02/10/2025 02:36 PM EDT History and Physical Notes * HPI (History of Present Illness) Category Sub-Category Detail Notes Category Not es General excedrin and 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 Tympanic membranes are pearly martin and mobile NOSE: normal external appe arance THROAT: CARDIO: regular rate and rhy thm, S1, S2 normal LUNGS: clear to auscultatio n bilaterally ABDOMEN: soft, nontender SKIN: warm and dry BACK: MUSCULOSKELETAL: Gait and station nor mal LYMPH NODES: normal, no cervical, axillary, or inguinal adenopathy
--- OUTSIDE RECORDS SUMMARY | 2025-01-26 10:02 | XMS_ITS ---
Author Organization [facility] [place] Address [address] [place] [address] Care Team Providers Care Viticulturist Name Role Phone Venita Resendiz Primary Care Provider [phone] REASON FOR VISIT Refill Medications Medication SIG (Take, Route, Fr equency, Duration) Notes Start Date End Date Status Meloxicam 5 MG 1 capsule Orally Onc e a day for 30 days Active Encounters Encounter Location Date Provider Diagnosis [address] [phone] 01/26/2025 Venita Resendiz Plan Of Treatment Medication Medication Name Sig Start Date Stop Date Notes Meloxicam 5 MG 1 capsule Orally Once a day for 30 days Progress Notes * Wale FUENTESDOB:1995 (29 yo F)Acc No.[id number]:01/26/2025 Patient: Wale BARKSDALE :1995 A ge:29 Y S ex:Female Address:[address] [place] [address], [phone] * Refills Refill Meloxicam Capsule, 5 MG, Orally, 30, 1 capsule, Once a day, 30 days, Refills=3 * true * Date: Generated for Warren nieto/Dede/eTransmitting on: 0 02/10/2025 02:36 PM EDT
--- OUTSIDE RECORDS SUMMARY | 2025-02-02 10:30 | XMS_ITS ---
Author Organization [facility] [place] Address [address] [place] [address] Care Team Providers Care Clinical Nurse Name Role Phone Venita Resendiz Primary Care Provider Medications Medication SIG (Take, Route, Fr equency, Duration) Notes Start Date End Date Status Meloxicam 5 MG 1 capsule Orally Onc e a day for 30 days Active Encounters Encounter Location Date Provider Diagnosis [address] [address] 02/02/2025 Venita Resendiz Plan Of Treatment Medication Medication Name Sig Start Date Stop Date Notes Meloxicam 5 MG 1 capsule Orally Once a day for 30 days Progress Notes * ALFREDOWale DIAZDOB:1995 (29 yo F)Acc No.[id number]:02/02/2025 Patient: Wale BARKSDALE :1995 A ge:29 Y S ex:Female Address:[address] [place] [address], [id number] * Refills Refill Meloxicam Capsule, 5 MG, Orally, 30, 1 capsule, Once a day, 30 days, Refills=3 * true * Date: Generated for Warren nieto/Dede/eTlashawnsmitting on: 0 02/10/2025 02:36 PM EDT
--- OUTSIDE RECORDS SUMMARY | 2025-02-10 14:36 | XMS_ITS | Clinical Summary ---
Author Organization [facility] Healthcare Address [address] [place] [address] Care Team Providers Care Community Engagement Coordinator Name Role Phone Unavailable Primary Care Provider [...]
--- OUTSIDE RECORDS SUMMARY | 2025-02-10 14:36 | XMS_ITS | Encounter Summary ---
Author Organization [facility] Address [id number] [address] [place] [address] Care Team Providers Care Police Captain Name Role Phone No Pcp, No Pcp Primary Care Provider Unavailabl e Reason for Visit * Reason Comments Med Refill Encounter Details Date Type Department Care Team (Late st Contact Info) Description 04/29/2019 Refill [facility] [address] [address] [place] [phone] Shannan Montesinos, WINDING DEPARTMENT SUPERVISOR-[facility] [address] [place] [id number] Intractable migraine without aura and with status [...] and Family Twice a week 01/19/2019 Attends Adventism Services Never 01/19 Active Member of Clubs [...] Answer Date Recorded PHQ-2 Score 0 01/05/2019 [facility] [place] of Occupat ional Health - Occupational Stress [...] documented as of this encounter Care Teams Police Captain Relationship Specialty Start Date End Date No Pcp, [place] [address] PCP - General Family Medicine 08/04/23 documented as of this encounter
--- OUTSIDE RECORDS SUMMARY | 2025-02-10 14:36 | XMS_ITS | Encounter Summary ---
Author Organization [employer] [facility] [employer] Address [id number] [address] [place] [address] Care Team Providers Care Bull Ladle Tender Name Role Phone No Pcp, No Pcp Primary Care Provider Unavailabl e Reason for Visit * Reason Onset Date Comments Med Refill 06/21/2019 Encounter Details Date Type Department Care Team (Late st Contact Info) Description 06/21/2019 Refill [facility] [address] [place] [address] [place] [phone] Gato Sanchez CMA Social History Tobacco Use [...] and Family Twice a week 01/19/2019 Attends Sikhism Services Never 01/19 Active Member of Clubs [...] Answer Date Recorded PHQ-2 Score 0 01/05/2019 [facility] [place] of Occupat ional Health - Occupational Stress [...] documented as of this encounter Care Teams Bull Ladle Tender Relationship Specialty Start Date End Date No Pcp, [place] [address] PCP - General Family Medicine 08/04/23 documented as of this encounter
--- OUTSIDE RECORDS SUMMARY | 2025-02-10 14:37 | XMS_ITS | Patient Health Record ---
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) Referral Organization [facility] Referring Provider First Name Lloyd Referring Provider Last Name Aarbella Referring Provider Speciality Podiatry Referred Organization [facility] Referred Address [address] [place] [phone], Referred Provider Specialty Pain Medicin e Referral Priority Routine Medications Medication SIG (Take, Route, Frequency, Duration) Notes Start Date End Date Status Meloxicam 15 MG Tablet 1 tablet Orally d aily; Duration: 30 days 12/20/2024 Active Neuropathy Dicofenac 3%, gabapentin 6%, lidocaine 2%, prilocaine 2% FAS Gel 1-2 grams Topically to area of pain BID-QID PRN massaging in well; Duration: 60 days 12/20/2024 06/18/2025 Active Social History Section Notes: Patient is a nonsmoker. No alcohol use. Problems Problem Type SNOMED Code ICD Code Onset Dates Problem Status W/U Status Risk Notes Problem Acquired hallux rigidus (4373536) Hallux rigidus, left foot (M20.22) Active confirmed Encounters Encounter Location Date Provider Diagnosis [facility] [address] [address], [place] [address] 12/20/2024 Lloyd Bell Nerve entrapment syndrome of left foot G57.92 and Hallux rigidus, left foot M20.22 Assessments Encounter Date Diagnosis (ICD Code) Assessment Notes Treatment Notes Treatment Clinical Notes Section Notes 12/20/2024 Hallux rigidus, left foot (ICD-10 - M20.22) 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 Symptoms of activity-related pain may be attributable to arthritis after nerve pain is addressed. 12/20/2024 Nerve entrapment syndrome of left foot (ICD-10 - G57.92) Chronic foot pain and hypersensitivity began after injury seven years ago. Pain is severe with light touch and impacts daily function and work. Symptoms and exam findings suggest nerve involvement rather than primary arthritis. Prior nerve testing were reportedly unremarkable. 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 Patient has tried multiple therapies with limited relief. - Ordered Meloxicam for pain management. - Ordered compounded topical cream for nerve pain from [facility]. - Referred to Pain Management (Dr. Gomez) for further evaluation and management. Plan Of Treatment No Information Insurance Providers Payer Name Payer Address Payer Phone Subscriber Number Group Number Insured Name Patient Relationship to Insured Coverage Start Date Coverage End Date Medicaid of [place] [address] [place] [address] [phone] [id number] Wale Delgado Self - patient is the insured Medical (General) History Medical History History ICD Code Asthma Surgical History Surgery Date(Month/Year) 2016
--- OUTSIDE RECORDS SUMMARY | 2025-02-10 14:37 | XMS_ITS | Encounter Summary ---
Author Organization [employer] [facility] [employer] Address [id number] [address] [place] [address] Care Team Providers Care Contract Clerk Automobile Name Role Phone No Pcp, No Pcp Primary Care Provider Unavailabl e Encounter Details Date Type Department Care Team (Late st Contact Info) Description 11/09/2021 Telephone [facility] [address] [place] [address] Farida Galo Social History Tobacco [...] and Family Twice a week 01/19/2019 Attends [employer] Services Never 01/19 Active Member of Clubs [...] Answer Date Recorded Total Score 4 11/09/2021 [facility] [place] of Occupat ional Health - Occupational Stress [...] sent to per her conversation with Dr. Madedn at her 11/09/21 appointment. Fax number is [phone] td Sargent Please advise and callback if [...] documented as of this encounter Care Teams Contract Clerk Automobile Relationship Specialty Start Date End Date No Pcp, [place] [address] PCP - General Family Medicine 08/04/23 documented as of this encounter
--- OUTSIDE RECORDS SUMMARY | 2025-02-10 14:37 | XMS_ITS | Encounter Summary ---
Author Organization [employer] [facility] Address [id number] [address] [place] [address] Care Team Providers Care Vc++ Developer Name Role Phone No Pcp, No Pcp Primary Care Provider Unavailabl e Reason for Visit * Reason Comments Med Refill Encounter Details Date Type Department Care Team (Late st Contact Info) Description 04/01/2022 Refill [facility] [address] [place] [address] [place] [phone] Shannan Montesinos, FORESTRY CONSULTANT-[facility] [address] [place] [id number] Anxiety and depression Social History Tobacco Use [...] and Family Twice a week 01/19/2019 Attends Lutheran Services Never 01/19 Active Member of Clubs [...] Answer Date Recorded Total Score 4 11/09/2021 [facility] - Occupational Stress Questionnaire Answer Date Recorded [...] documented as of this encounter Care Teams Vc++ Developer Relationship Specialty Start Date End Date No Pcp, [place] [address] PCP - General Family Medicine 08/04/23 documented as of this encounter
--- OUTSIDE RECORDS SUMMARY | 2025-02-10 14:37 | XMS_ITS | Clinical Summary ---
Author Organization [employer] Address [id number] [address] [place] [address] Care Team Providers Care Otr Driver Name Role Phone No Pcp, No Pcp [...] and Family Twice a week 01/19/2019 Attends Buddhist Services Never 01/19 Active Member of Clubs [...] Answer Date Recorded Total Score 12 04/22/2022 [facility] of Occupat ional Health - Occupational [...] Devices Not on file Insurance [place] [id number] Advance Directives * Full Code (Latest Code Status on File) Date Activated Date Inactivated Comments 10/03/2017 9:38 AM 10/05/2017 5:13 PM Care Teams Otr Driver Relationship Specialty Start Date End Date No Pcp, No Pcp [place] [address] PCP - General Family Medicine 08/04/23
--- OUTSIDE RECORDS SUMMARY | 2025-02-10 14:37 | XMS_ITS | Encounter Summary ---
Author Organization [employer] [facility] [employer] Address [id number] [address] [place] [address] Care Team Providers Care Computer Designer Name Role Phone No Pcp, No Pcp Primary Care Provider Unavailabl e Encounter Details Date Type Department Care Team (Late st Contact Info) Description 01/07/2022 Orders Only [facility] [address] [place] [address] [place] [phone] External, Scanning Provider Social History Tobacco Use [...] and Family Twice a week 01/19/2019 Attends Spiritism Services Never 01/19 Active Member of Clubs [...] Answer Date Recorded Total Score 4 11/09/2021 [facility] [place] of Occupat ional Health - Occupational Stress [...] documented as of this encounter Care Teams Computer Designer Relationship Specialty Start Date End Date No Pcp, No Pcp [place] [address] PCP - General Family Medicine 08/04/23 documented as of this encounter
--- OUTSIDE RECORDS SUMMARY | 2025-02-10 14:37 | XMS_ITS | Encounter Summary ---
Author Organization [employer] [facility] [employer] Address [id number] [address] [place] [address] Care Team Providers Care Photographic Machine Operator Name Role Phone No Pcp, No Pcp Primary Care Provider Unavailabl e Encounter Details Date Type Department Care Team (Late st Contact Info) Description 04/01/2022 Telephone [facility] [address] [place] [address] Farida Galo Social History Tobacco [...] Answer Date Recorded Total Score 4 11/09/2021 [facility] [place] of Occupat ional Health - Occupational Stress [...] documented as of this encounter Care Teams Photographic Machine Operator Relationship Specialty Start Date End Date No Pcp, [place] [address] PCP - General Family Medicine 08/04/23 documented as of this encounter
--- OUTSIDE RECORDS SUMMARY | 2025-02-10 14:37 | XMS_ITS | Encounter Summary ---
Author Organization [employer] Address [id number] [address] [place] [address] Care Team Providers Care Universal Worker Assisted Living Name Role Phone No Pcp, No Pcp Primary Care Provider Unavailabl e Reason for Visit * Reason Comments Med Refill Encounter Details Date Type Department Care Team (Late st Contact Info) Description 10/10/2019 Refill [facility] [address] [place] [address] [place] [phone] Shannan Montesinos, DENTAL HYGIENIST-[facility] [address] [place] [address] Anxiety Social History Tobacco Use Types Packs/Day [...] and Family Twice a week 01/19/2019 Attends Jew Services Never 01/19 Active Member of Clubs [...] Answer Date Recorded PHQ-2 Score 0 01/05/2019 [facility] [place] of Occupat ional Health - Occupational Stress [...] documented as of this encounter Care Teams Universal Worker Assisted Living Relationship Specialty Start Date End Date No Pcp, [place] [address] PCP - General Family Medicine 08/04/23 documented as of this encounter
--- OUTSIDE RECORDS SUMMARY | 2025-02-10 14:37 | XMS_ITS | Encounter Summary ---
Author Organization [employer] Address [id number] [address] [place] [address] Care Team Providers Care Superintendent Custodian Janitor Name Role Phone No Pcp, No Pcp Primary Care Provider Unavailabl e Encounter Details Date Type Department Care Team (Late st Contact Info) Description 09/23/2019 [facility] [address] [place] [phone] Shannan Montesinos, DEANGELO-HOT WALKER [address] [place] [address] Social History Tobacco Use Types Packs/Day Years [...] and Family Twice a week 01/19/2019 Attends Moravian Services Never 01/19 Active Member of Clubs [...] Answer Date Recorded PHQ-2 Score 0 01/05/2019 [facility] [place] of Occupat ional Health - Occupational Stress [...] documented as of this encounter Care Teams Superintendent Custodian Janitor Relationship Specialty Start Date End Date No Pcp[place] [address] PCP - General Family Medicine 08/04/23 documented as of this encounter
--- OUTSIDE RECORDS SUMMARY | 2025-02-10 14:37 | XMS_ITS | Encounter Summary ---
Author Organization [facility] [employer] [facility] Address [id number] [address] [place] [address] Care Team Providers Care Desktop Support Associate Name Role Phone No Pcp, No Pcp Primary Care Provider Unavailabl e Encounter Details Date Type Department Care Team (Late st Contact Info) Description 10/06/2017 Telephone [facility] - Dept [address] [place] [phone] Michaela Licea, RN Social History Tobacco Use [...] documented as of this encounter Care Teams Desktop Support Associate Relationship Specialty Start Date End Date No Pcp, [place] [address] PCP - General Family Medicine 08/04/23 documented as of this encounter
--- OUTSIDE RECORDS SUMMARY | 2025-02-10 14:37 | XMS_ITS | Encounter Summary ---
Author Organization [facility] Address [id number] [address] [place] [address] Care Team Providers Care Bankruptcy Attorney Name Role Phone No Pcp, No Pcp Primary Care Provider Unavailabl e Reason for Visit * Reason Comments Med Refill Encounter Details Date Type Department Care Team (Late st Contact Info) Description 04/02/2022 Refill [facility] [address] [place] [address] [place] [phone] Shannan Montesinos, [facility] TR[facility]PER[facility] [address] [place] [phone] Epigastric pain; Abdominal pain, RLQ; LUQ abdominal [...] and Family Twice a week 01/19/2019 Attends Mosque Services Never 01/19 Active Member of Clubs [...] Answer Date Recorded Total Score 4 11/09/2021 [facility] [place] of Occupat ional Health - Occupational Stress [...] documented as of this encounter Care Teams Bankruptcy Attorney Relationship Specialty Start Date End Date No Pcp, [place] [address] PCP - General Family Medicine 08/04/23 documented as of this encounter
--- OUTSIDE RECORDS SUMMARY | 2025-02-10 14:37 | XMS_ITS | Encounter Summary ---
Author Organization [employer] Address [id number] [address] [place] [address] Care Team Providers Care Power Transformer Assembler Name Role Phone No Pcp, No Pcp Primary Care Provider Unavailabl e Reason for Visit * Reason Comments Med Refill Encounter Details Date Type Department Care Team (Late st Contact Info) Description 04/19/2020 Refill [facility] [address] [place] [address] [place] [phone] Shannan Montesinos, METAL TEMPERER-[facility] [address] [place] [phone] Intractable migraine without aura and with status [...] and Family Twice a week 01/19/2019 Attends Zoroastrianism Services Never 01/19 Active Member of Clubs [...] Answer Date Recorded PHQ-2 Score 0 01/05/2019 [facility] [place] of Occupat ional Health - Occupational Stress [...] documented as of this encounter Care Teams Power Transformer Assembler Relationship Specialty Start Date End Date No Pcp, No Pcp [place] [address] PCP - General Family Medicine 08/04/23 documented as of this encounter
--- OUTSIDE RECORDS SUMMARY | 2025-02-10 14:37 | XMS_ITS | Encounter Summary ---
Author Organization [employer] Address [id number] [address] [place] [address] Care Team Providers Care Integration Director Name Role Phone No Pcp, No Pcp Primary Care Provider Unavailabl e Reason for Visit * Reason Onset Date Comments MR Lft Foot 10/31/2023 Encounter Details Date Type Department Care Team (Late st Contact Info) Description 10/31/2023 Telephone [facility] [address] [place] [phone] Kassi Morris MR Lft Foot Social History [...] Answer Date Recorded Total Score 12 04/22/2022 [facility] [place] of Occupat ional Health - Occupational Stress [...] WWO CONTRAST has been denied and a [id number] is needed. end of day 11/03/23. [facility]#: [phone] Case#: [id number] * Telephone Encounter - Sunshine Madden MD [...] documented as of this encounter Care Teams Integration Director Relationship Specialty Start Date End Date No Pcp, [place] [address] PCP - General Family Medicine 08/04/23 documented as of this encounter
--- OUTSIDE RECORDS SUMMARY | 2025-02-10 14:37 | XMS_ITS | Encounter Summary ---
Author Organization [employer] Address [id number] [address] [place] [address] Care Team Providers Care Robotics Technologist Name Role Phone No Pcp, No Pcp Primary Care Provider Unavailabl e Reason for Visit * Reason Onset Date Comments reschd 09/19/2021 Encounter Details Date Type Department Care Team (Late st Contact Info) Description 09/19/2021 Telephone [facility] [address] [place] [address] Cindi Bran reschd Social History [...] and Family Twice a week 01/19/2019 Attends Sikh Services Never 01/19 Active Member of Clubs [...] Answer Date Recorded Total Score 7 09/13/2021 [facility] [place] of Occupat ional Health - Occupational Stress [...] appointment with Dr. Madden today 09/19/21 in [place] needs to be rescheduled to next available. [...] documented as of this encounter Care Teams Robotics Technologist Relationship Specialty Start Date End Date No Pcp, [place] [address] PCP - General Family Medicine 08/04/23 documented as of this encounter
--- OUTSIDE RECORDS SUMMARY | 2025-02-10 14:38 | XMS_ITS | Patient Health Record ---
Author Organization [facility] [place] Address [address] [place] [address] Care Team Providers Care Hog Driver Name Role Phone Venita Resendiz Primary Care Provider [phone] Allergies No Known Allergies Reason For Referral No Information Medications Medication SIG (Take, Route, Frequency, Duration) Notes Start Date End Date Status Meloxicam 5 MG 1 capsule Orally Onc e a day for 30 days Active SUMAtriptan Succinate 100 MG 1 tablet as needed, may take second dose at least 2 hours after first dose up to 2 tablets per day as needed Orally Once a day for 30 days 12/23/2024 Active Albuterol Sulfate HFA Active Social History Tobacco Use: Social History [...] Problem Status W/U Status Risk Notes Problem Asthma (591100474) Asthma (J45.909) Active confirmed Problem Migraines (G43.909) Active confirmed Vital Signs Blood pressure diastolic 78 mm Hg 12/23/2024 Height 67 in 12/23/2024 Blood pressure systolic 110 mm Hg 12/23/2024 Weight 247 lbs 12/23/2024 BMI 38.68 kg/m2 12/23/2024 Encounters Encounter Location Date Provider Diagnosis [facility] [address] [place] [address] 01/26/2025 Venita Resendiz [facility] [address] [place] [place] [address] 02/02/2025 Venita Resendiz [facility] [address] [place] [address] 12/23/2024 Venita Resendiz Migraines G43.909 Assessments Encounter Date Diagnosis (ICD Code) Assessment Notes Treatment Notes Treatment Clinical Notes Section Notes 12/23/2024 Migraines (ICD-10 - G43.909) Nurtec samples given Plan Of Treatment No Information Insurance Providers Payer Name Payer Address Payer Phone Subscriber Number Group Number Insured Name Patient Relationship to Insured Coverage Start Date Coverage End Date [employer] [place] [employer] [address] [place] [phone] [id number] Wale Delgado Self - patient is the insured Medical (General) History Medical History History ICD Code arthritis Surgical History Surgery Date(Month/Year) partial hestercectomy gallbladder removed 2016
--- OUTSIDE RECORDS SUMMARY | 2025-02-10 14:38 | XMS_ITS | Encounter Summary ---
Author Organization [employer] Address [id number] [address] [place] [address] Care Team Providers Care Executive Secretary Name Role Phone No Pcp, No Pcp Primary Care Provider Unavailabl e Reason for Visit * Reason Comments Med Refill Encounter Details Date Type Department Care Team (Late st Contact Info) Description 08/16/2021 Refill [facility] [address] [place] [address] [address] [place] [id number] Shannan Montesinos, [facility] [address] [place] [id number] Anxiety and depression Social History Tobacco Use [...] and Family Twice a week 01/19/2019 Attends Worship Services Never 01/19 Active Member of Clubs [...] Answer Date Recorded Total Score 0 04/19/2021 [facility] - [facility]ational [...] documented as of this encounter Care Teams Executive Secretary Relationship Specialty Start Date End Date No Pcp, [place] [id number] PCP - General Family Medicine 08/04/23 documented as of this encounter
--- OUTSIDE RECORDS SUMMARY | 2025-02-10 14:42 | XMS_ITS | CCD ---
Author Organization [facility] Inform ion Partnership [facility] Care Team Providers Care Financial Investment Manager Name Role Phone MEHRDAD ZAPATA Admitting Unavailable [...] Drug Class(es) Dates Sig (Normalized) Sig (Original) [id number] 200 actuat albuterol 0.09 mg/actuat metered dose [...] tablet 08/01/2022 Active take 1 tablet by [facility] four times daily as needed hydroxyzine [...] Start: 12-25-2021 take 1 capsule by mo [facility] three times daily as needed pregabalin [...] Discontinued (Reorder) take 1 capsule by mo [facility] every six hours as needed, then [...] Patino MD on 11/11/2023 1:44 PM Normal [facility] SARS/FLU A+B/RSV by NAAT/Mol ecularon 07-27-2023 SARS/FLU [...] operators who are performing tests using either I Do Now I Don't DX or DialMyApp systems and is limited to laboratories that [...] repeat. Fact Sheet for Healthcare Providers: https://www.fda.gov/me amy/676154/download Fact Sheet for Patients: https://www.fda.gov/me amy/396069/download Normal [facility] Comment on above: Performed By: #### C OVFLR #### [facility] ([id number]) [address] [place] [address], [place] [address] XR CHEST 1 VWon 07-27-2023 XR CHEST [...] Fried MD on 07/27/2023 8:02 PM Normal [facility] SARS/FLU A+B/RSV by NAAT/Mol ecularon 07-20-2023 SARS/FLU [...] operators who are performing tests using either I Do Now I Don't DX or DialMyApp systems and is limited to laboratories that [...] specimen repeat. Fact Sheet for Healthcare Providers: https://www.fda.gov/id amy/700494/download Fact Sheet for Patients: https://www.fda.gov/id amy/931032/download [facility] Comment on above: Performed By: #### C OVFLR #### [facility] ([id number]) [address] [place] [address] History and Physicalon 05-11 History and Physical [id number]#1.[address] [facility] Operative Report - Surgeon/P hysicigus 05-11-2018 Operative Report - Surgeon/Physician [id number]#1.[address] [facility] Provider Orderson 05-11-2018 Provider Orders [id number]#1.[address] [facility] Coding Summaryon 05-06-2018 Coding Summary CODING DATE: 05/06/2018 [facility] STATUS: Home PAYOR: Medicaid HMO ADMIT DX: REASON FOR VISIT DX: N81.10 Cystocele, unspecified N92.0 Excessive and frequent menstruation with regular cycle N81.9 Female genital prolapse, unspecified FINAL DX: PRINCIPAL: N72 Inflammatory disease of cervix uteri SECONDARY: N88.8 Other specified noninflammatory disorders of cervix uteri N84.1 Polyp of cervix uteri N92.0 Excessive and frequent menstruation with regular cycle PROCEDURES DOCTOR NAME DATE 42556 Vaginal hysterectomy, for Samuel Loja DO 04/28/2018 uterus 250 g or less; NOTE: The code number assigned matches the documented diagnosis and / or procedure in the patient's chart. However, the narrative phrase printed from the coding software may appear abbreviated, or result in slightly different terminology. Coded By: Janis Iyer Date Saved: 05/06/2018 06:00 am [facility] Lab - AP Resultson 8 Lab - AP Results [id number]#1.00 OTGTIFF [facility] MAGR Postoperative Recordon 05-01-2018 MAGR Postoperative Record MAGR Phase II Record Summary Primary Physician: Samuel Loja DO Finalized Date/Time: 05/01/18 10:14:03 Pt. Name: WALE DELGADO/Sex: 1995 FEMALE Med Rec #: [id number] Physician: Samuel Loja DO Financial #: [id number] Pt. Type: O Room/Bed: [facility] Admit/Disch: 04/28/18 05:59:59 - 04/29/18 11:20:00 Institution: [...] discharge instructions. General Comments: care per 2 [facility] nursing staff Finalized By: Chen Marquez RN Document Signatures Signed By: Chen Marquez RN 05/01/18 10:14 [facility] Consent Formson 04-30-2018 Consent Forms [id number]#1.[address] [facility] Outside Recordson 04-30-2018 Outside Records [id number]#1.[address] [facility] Pathology Sendout Teston Pathology Send Out. See Report [facility] Comment on above: Order Comment: UTERU S Performed By: #### 2 [id number] ####[facility] (DEFAULT)[address] [place] [address] Telemetry Stripson 8 Telemetry Strips [id number]#1.[address] [facility] Education Noteon 04-29-2018 Education Note Education Materials Vaginal Hysterectomy, Care After Refer to this sheet in the next few weeks. These instructions provide you with information on caring for yourself after your procedure. Your health care provider may also give you more specific instructions. Your treatment has been planned according to current medical practices, but problems sometimes occur. Call Dr Loja's office or [facility] to request to speak with Dr Loja if you have any problems or questions after your procedure. WHAT TO EXPECT AFTER THE PROCEDURE After your procedure, it is typical to have the following: ? Abdominal pain. You will be given pain medicine to control it. ? Sore throat from the breathing tube that was inserted during surgery. HOME CARE INSTRUCTIONS ? Only take deoe-qwu-udfmsgv or prescription medicines for pain, discomfort, or [...] Reviewed: 12/23/2013 Elsevier Interactive Patient Education ?2016 [employer] Normal [facility] Inpatient Patient Summaryon 04-29-2018 Inpatient Patient Summary [address] [address] Patient Discharge Instructions Name: WALE DELGADO : [birth year] Patient Address: [address] [place] [address] Primary Care Provider: Name: Provider, Unlisted Phone: After you are discharged if you find you have any questions, please, call [phone] ext [phone] to speak to a nurse. [...] business decisions or sign any legal documents [facility] would like to thank you for allowing us to assist you with your healthcare needs. The following includes patient education materials and information regarding your injury/illness. WALE DELGADO has been given the following list of follow-up instructions, prescriptions, and patient education materials: Follow-up Instructions With: Address: When: Samuel Loja [address] [place] [address] [facility] () In 2 weeks 05/12/18 With: Address: [...] surgery. HOME CARE INSTRUCTIONS ? Only take qzkk-jfb-efnoqox or prescription medicines for pain, discomfort, or [...] 05/28/2012 Document Revised: 06/14/2014 Document Reviewed: 12/23/2013 [employer] Interactive Patient Education ?2016 [employer] Viruses or Bacteria What?s got you [...] for Disease Control and Prevention February 2014 [facility] MAGR Intraoperative Recordon 04-29-2018 MAGR Intraoperative Record MAGR Intra-Op Record Summary Primary Physician: Samuel Loja DO Finalized Date/Time: 04/29/18 13:38:58 Pt. Name: WALE DELGADOE /Sex: 1995 FEMALE Med Rec #: [id number] Physician: Samuel Loja DO Financial #: [id number] Pt. Type: O Room/Bed: [facility] Admit/Disch: 04/28/18 05:59:59 - Institution: Case Times MAGR Entry 1 Patient In Room Time 04/28/18 07:59:00 Out Room Time 04/28/18 09:29:00 Anesthesia Start Time 04/28/18 07:59:00 Stop Time 04/28/18 09:29:00 Surgery Start Time 04/28/18 08:24:00 Stop Time 04/28/18 09:20:00 Last Modified By: Juanita Hollnad RN 04/28/18 10:22:44 Case Attendance MAGR Entry 1 Entry 2 Entry 3 Case Attendee Samuel Loja DO, David DO Sauer, Stephanie RN Role Performed Surgeon - Primary Anesthesiologist of Assembly Associate Record Time In 04/28/18 07:59:00 04/28/18 07:59:00 04/28/18 07:59:00 Time Out 04/28/18 09:29:00 04/28/18 09:29:00 04/28/18 09:29:00 Procedure Hysterectomy Vaginal Hysterectomy Vaginal Hysterectomy Vaginal Last Modified By: Juanita Holland RN, Stephanie RN Sauer, Stephanie RN 04/28/18 10:27:29 04/28/18 10:27:29 04/28/18 10:27:29 Entry 4 Entry 5 Case Attendee Edgar Sanchez Rachel AIRSET CASTER/CSFA Role Performed Chief Gauger Scrub Personnel Time In 04/28/18 07:59:00 04/28/18 [...] Status Correct Final Count Sharps Final Counts Juanita Holland RN Final Count Time 04/28/18 10:30:00 [...] By: Ashlie Lees RN 04/29/18 13:38 Normal [facility] Pharmacy Noteon 04-29-2018 Pharmacy Note Spoke to this post operative patient as she was laying in bed. She was laying in bed but preparing to be discharged. Time was spent discussing pain medications and the concerns relating to them. [Electronically Signed on: 04/29/2018 15:50 EST] Celine Ansari [Verified on: 04/29/2018 15:50 EST] Celine Ansari Normal [facility] .Auto Diff 1on 04-28-2018 Auto [place] % 2 % Normal 1-12 [facility] Comment on above: Performed By: #### 7 [id number], [id number] #### [facility] (DEFAULT) [address] [place] [address] Baso Abs# 0.0 x10 Normal 0.0-0.2 [facility] Comment on above: Performed By: #### 7 [id number], [id number] #### [facility] (DEFAULT) [address] [place] [address] Basophils/100 WBC (Bld) 0.2 % Normal 0.2-2.0 [facility] Comment on above: Performed By: #### 7 [id number], [id number] #### [facility] (DEFAULT) [address] [place] [address] Eos Abs# 0.1 x10 Normal 0.0-0.4 [facility] Comment on above: Performed By: #### 7 [id number], [id number] #### [facility] (DEFAULT) [address] [place] [address] Eosinophils/100 WBC (Bld) 0.5 % Low 0.9-4.0 [facility] Comment on above: Performed By: #### 7 [id number], [id number] #### [facility] (DEFAULT) [address] [place] [address] Lymphocytes (Bld) [#/Vol] 1.0 x10 Low 1.3-2.9 [facility] Comment on above: Performed By: #### 7 [id number], [id number] #### [facility] (DEFAULT) [address] [place] [address] Lymphocytes/100 WBC (Bld) 8 % Low 14-48 [facility] Comment on above: Performed By: #### 7 360250, [id number] #### [facility] (DEFAULT) [address] [place] [address] [place] Abs# 0.2 x10 Normal 0.0-0.8 [facility] Comment on above: Performed By: #### 7 [id number], [id number] #### [facility] (DEFAULT) [address] [place] [address] Neut Abs# 11.7 x10 High 1.5-9.2 [facility] Comment on above: Performed By: #### 7 [id number], [id number] #### [facility] (DEFAULT) [address] [place] [address] Neutrophils/100 WBC (Bld) 90 % High 44-88 [facility] Comment on above: Performed By: #### 7 167719, [id number] #### [facility] (DEFAULT) [address] [place] [address] Anesthesia Noteon 04-28-2018 Anesthesia Note Patient: WALE [...] All Problems Active asthma / SNOMED CT 598242921 / Confirmed Migraine / SNOMED CT 745789762874423 / Confirmed ILIANA (iron deficiency anemia) / SNOMED CT 316893645 / Confirmed Resolved: / SNOMED CT 178523389 Resolved: / SNOMED CT 060162422 Resolved: / SNOMED CT 640575252 Resolved: / SNOMED CT 860557005 Histories Family History: High blood pressure Grandparent Procedure history: Bilateral tubal ligation (510076954) in 2018 at 23 Years. Cholecystectomy (99135844) on 07/26/2016 at 21 Years. Social History [...] Oriented. Review / Management Laboratory Results Plan [place] [employer]esthesiologists#(ASA ) physical status classification: [...] 04/28/2018 07:53 EST] Osmany German DO Normal [facility] CBC w/ Auto Diffon 8 Erythrocyte distribution width (RBC) [Ratio] 15.0 % Normal 11.5-15.0 [facility] Comment on above: Performed By: #### 7 [id number], [id number] #### [facility] (DEFAULT) [address] [place] [address] Hematocrit (Bld) [Volume fraction] 38.5 % Normal 33.7-40.4 [facility] Comment on above: Performed By: #### 7 105868, [id number] #### [facility] (DEFAULT) [address] [place] [address] Hemoglobin (Bld) [Mass/Vol] 13.1 g/dL Normal 11.3-15.9 [facility] Comment on above: Performed By: #### 7 755238, [id number] #### [facility] (DEFAULT) [address] [place] [address] Man Diff? Auto Normal [facility] Comment on above: Performed By: #### 7 495099, [id number] #### [facility] (DEFAULT) [address] [place] [address] MCH (RBC) [Entitic mass] 28 pg Normal 24-34 [facility] Comment on above: Performed By: #### 7 557260, [id number] #### [facility] (DEFAULT) [address] [place] [address] MCHC (RBC) [Mass/Vol] 34 g/dL Normal 26-37 [facility] Comment on above: Performed By: #### 7 992971, [id number] #### [facility] (DEFAULT) [address] [place] [address] MCV (RBC) [Entitic vol] 82 fL Normal 81-100 [facility] Comment on above: Performed By: #### 7 354440, [id number] #### [facility] (DEFAULT) [address] [place] [address] Platelet mean volume (Bld) [Entitic vol] 10.1 fL Normal 6.3-10.2 [facility] Comment on above: Performed By: #### 7 988442, [id number] #### [facility] (DEFAULT) [address] [place] [address] Platelets (Bld) [#/Vol] 168 x10 Normal 138-427 [facility] Comment on above: Performed By: #### 7 020705, [id number] #### [facility] (DEFAULT) [address] [place] [address] RBC (Bld) [#/Vol] 4.69 x10 Normal 3.70-5.30 [facility] Comment on above: Performed By: #### 7 539943, [id number] #### [facility] (DEFAULT) [address] [place] [address] WBC (Bld) [#/Vol] 13.0 x10 High 3.5-10.5 [facility] Comment on above: Performed By: #### 7 884972, [id number] #### [facility] (DEFAULT) [address] [place] [address] Result Comment: Slid e Reviewed Consent Formson 04-28-2018 Consent Forms [id number]#1.[address] [facility] Consent Forms [id number]#1.[address] [facility] MAGR PACU Recordon 8 MAGR PACU Record MAGR PACU Record Summary Primary Physician: Samuel Loja DO Finalized Date/Time: 04/28/18 10:40:46 Pt. Name: WALE DELGADO/Sex: 1995 FEMALE Med Rec #: [id number] Physician: Samuel Loja DO Financial #: [id number] Pt. Type: D Room/Bed: 221/1 Admit/Disch: 04/28/18 05:59:59 - Institution: PACU Case Times MAGR Entry 1 In PACU I 04/28/18 09:30:00 Ready for PACU I 04/28/18 10:30:00 Discharge Discharge from PACU 04/28/18 10:30:00 I Last Modified By: Jamaica Coles RN 04/28/18 10:40:44 General Comments: Discharge to nursing unit per Dr German using discharge criteria. Finalized By: Jamaica Coles RN Document Signatures Signed By: Jamaica Coles RN 04/28/18 10:40 [facility] 06-28-2017 MAGR Preoperative Record MAGR Pre-Op Record Summary Primary Physician: Samuel Loja DO Finalized Date/Time: 04/28/18 08:01:12 Pt. Name: WALE DELGADOE /Sex: 1995 FEMALE Med Rec #: [id number] Physician: Samuel Loja DO Financial #: [id number] Pt. Type: D Room/Bed: / Admit/Disch: 04/28/18 [...] Signed By: Jennifer Zapata RN 04/28/18 08:01 [facility] Nutrition Noteon 04-28-2018 Nutrition Note 22 year old female adm. for Total Vag. Hyster. No identified recent wt. changes, nor problems chewing/swallowing. Noted Constipation 04/22/18, otherwise don't anticipate any nutritional problems post op, so pt. is currently at low nutritional risk. Monitor GI function and appetite from Regular diet ordered. Normal [facility] Operative Report - Surgeon/P andrew 04-28-2018 Operative [...] to pathology. Samuel Loja DO JOB #: [id number] ul [Electronically Signed on: 05/26/2018 08:04 EST] Samuel Loja DO, D.O. [Verified on: 05/26/2018 08:04 EST] Samuel Loja DO, D.O. [Transcribed on: 04/28/2018 10:38 EST] GDU Normal [facility] Test Urine 1on U Preg Negative [facility] Comment on above: Performed By: #### 3 [id number] #### [facility] (DEFAULT) [address] [place] [address] U Preg Internal Control Pass [facility] Comment on above: Performed By: #### 3 [id number] #### [facility] (DEFAULT) [address] [place] [address] Progress Note - Nurseon Progress Note - [...] 04/28/2018 18:53 EST] Ann Marie Wheeler RN [facility] Coding Summaryon 04-27-2018 Coding Summary CODING DATE: 04/27/2018 [facility] STATUS: Home PAYOR: Medicaid HMO ADMIT DX: [...] Valerie Patel Date Saved: 04/27/2018 10:05 am [facility] Progress Note - Nurseon Progress Note - Nurse Pre-op call done, instructed to arrive @ 0600 on 04-28-18, NPO after midnight-verbalized understanding. [Electronically Signed on: 04/27/2018 11:23 EST] Lindsey Hilliard RN [Verified on: 04/27/2018 11:23 EST] Lindsey Hilliard RN Normal [facility] .Auto Diff 1on 04-22-2018 Auto [place] % 7 % Normal 1-12 [facility] Comment on above: Performed By: #### 7 [id number], [id number] #### [facility] (DEFAULT) [address] [place] [address]64 Baso Abs# 0.0 x10 Normal 0.0-0.2 [facility] Comment on above: Performed By: #### 7 894404, [id number] #### [facility] (DEFAULT) [address] [place] [address]25 Basophils/100 WBC (Bld) 0.1 % Low 0.2-2.0 [facility] Comment on above: Performed By: #### 7 569630, [id number] #### [facility] (DEFAULT) [address] [place] [address]3239 Eos Abs# 0.1 x10 Normal 0.0-0.4 [facility] Comment on above: Performed By: #### 7 603136, [id number] #### [facility] (DEFAULT) [address] [place] [address] Eosinophils/100 WBC (Bld) 1.8 % Normal 0.9-4.0 [facility] Comment on above: Performed By: #### 7 968974, [id number] #### [facility] (DEFAULT) [address] [place] [address] 11396 Lymphocytes (Bld) [#/Vol] 2.0 x10 Normal 1.3-2.9 [facility] Comment on above: Performed By: #### 7 698871, [id number] #### [facility] (DEFAULT) [address] [place] [address] 54662 Lymphocytes/100 WBC (Bld) 30 % Normal 14-48 [facility] Comment on above: Performed By: #### 7 767301, [id number] #### [facility] (DEFAULT) [address] [place] [address] [place] Abs# 0.5 x10 Normal 0.0-0.8 [facility] Comment on above: Performed By: #### 7 919576, [id number] #### [facility] (DEFAULT) [address] [place] [address] 38195 Neut Abs# 4.2 x10 Normal 1.5-9.2 [facility] Comment on above: Performed By: #### 7 109010, [id number] #### [facility] (DEFAULT) [address] [place] [address] 68195 Neutrophils/100 WBC (Bld) 61 % Normal 44-88 [facility] Comment on above: Performed By: #### 7 209657, [id number] #### [facility] (DEFAULT) [address] [place] [address]792 CBC w/ Auto Diffon 8 Erythrocyte distribution width (RBC) [Ratio] 14.9 % Normal 11.5-15.0 [facility] Comment on above: Performed By: #### 7 099982, [id number] #### [facility] (DEFAULT) [address] [place] [address] Hematocrit (Bld) [Volume fraction] 39.5 % Normal 33.7-40.4 [facility] Comment on above: Performed By: #### 7 049277, [id number] #### [facility] (DEFAULT) [address] [place] [address] Hemoglobin (Bld) [Mass/Vol] 13.5 g/dL Normal 11.3-15.9 [facility] Comment on above: Performed By: #### 7 023950, [id number] #### [facility] (DEFAULT) [address] [place] [address] Man Diff? Auto Normal [facility] Comment on above: Performed By: #### 7 474017, [id number] #### [facility] (DEFAULT) [address] [place] [address]209 MCH (RBC) [Entitic mass] 28 pg Normal 24-34 [facility] Comment on above: Performed By: #### 7 132741, [id number] #### [facility] (DEFAULT) [address] [place] [address]10 MCHC (RBC) [Mass/Vol] 34 g/dL Normal 26-37 [facility] Comment on above: Performed By: #### 7 594699, [id number] #### [facility] (DEFAULT) [address] [place] [address]647 MCV (RBC) [Entitic vol] 82 fL Normal 81-100 [facility] Comment on above: Performed By: #### 7 705513, [id number] #### [facility] (DEFAULT) [address] [place] [address]856 Platelet mean volume (Bld) [Entitic vol] 9.1 fL Normal 6.3-10.2 [facility] Comment on above: Performed By: #### 7 824380, [id number] #### [facility] (DEFAULT) [address] [place] [address] 32588 Platelets (Bld) [#/Vol] 240 x10 Normal 138-427 [facility] Comment on above: Performed By: #### 7 168170, [id number] #### [facility] (DEFAULT) [address] [place] [address] 39951 RBC (Bld) [#/Vol] 4.81 x10 Normal 3.70-5.30 [facility] Comment on above: Performed By: #### 7 943426, [id number] #### [facility] (DEFAULT) [address] [place] [address] 32687 WBC (Bld) [#/Vol] 6.8 x10 [facility] Comment on above: Performed By: #### 7 219225, [id number] #### [facility] (DEFAULT) [address] [place] [address] Vital Signs Date Time Vital Sign Value Performing Clinician Jose sales 10-17-2023 12:00-0400 Body height 167.6 cm Nena Madden MD Work Phone: [facility] 10-17-2023 12:00-0400 Body mass index (BMI) [Ratio] 35.02 kg/m2 Ehad Maryanne MD Work Phone: [facility] 10-17-2023 12:00-0400 Body weight 98.43 kg [facility] Madden [facility] 10-17-2023 12:00-0400 Diastolic blood pressure 91 mm[Hg] [facility] 10-17-2023 12:00-0400 Heart rate 84 /min Nena Madden MD [facility] 10-17-2023 12:00-0400 Systolic blood pressure 127 mm[Hg] Nena Madden MD [facility] 12-25-2021 12:56-0400 Body height 167.64 cm [facility] 12-25-2021 12:56-0400 Body mass index (BMI) [Ratio] 39.38 kg/m2 [facility] 12-25-2021 12:56-0400 Body surface area Derived from formula 2.27 m2 [facility] 12-25-2021 12:56-0400 Body weight 110.68 kg [facility] 12-25-2021 12:56-0400 Diastolic blood pressure 68 mm[Hg] [facility] 12-25-2021 12:56-0400 Heart rate 76 /min [facility] 12-25-2021 12:56-0400 Systolic blood pressure 122 mm[Hg] [facility] Encounters Encounter Date Encounter Type Care Provider Facility Start: 01-03-2025 End: 01-03-2025 ambulatory Alonzo Ayoub MD Facility: [facility] Start: 03-05-2024 End: 03-05-2024 Office outpatient visit 15 minutes N[facility] Madden MD [facility] Comment on above: Neuritis of left manuel t (Primary Dx); Nerve pain; Depression, unspecified depression type; Anxiety; Chronic pain in left foot; Gait instability Start: 03-05-2024 End: 03-05-2024 ambulatory [facility] Start: 11-08-2023 End: 11-08-2023 ambulatory [facility] Start: 10-17-2023 End: 10-17-2023 Office outpatient visit 25 minutes Nena Madden MD [facility] Comment on above: Neuritis of left manuel t (Primary Dx); Nerve pain; Depression, unspecified depression type; Anxiety; Chronic pain in left foot; Hip pain; Gait instability Start: 10-17-2023 End: 10-17-2023 [facility] Start: 10-16-2023 End: 10-16-2023 Emergency department patient visit NO PCP NO PCP [facility] Start: 08-04-2023 End: 08-04-2023 Emergency department patient visit NO PCP NO PCP [facility] Start: 07-27-2023 End: 07-28-2023 Emergency department patient visit DAMON RUTH [facility] Start: 07-27-2023 End: 07-27-2023 Emergency department patient visit NO PCP NO PCP [facility] Start: 07-20-2023 End: 07-20-2023 Emergency department patient visit KAYLEIGH LOZADA [facility] Start: 12-25-2021 Split Bobbi regalado Other [facility] Office Start: 11-12-2017 End: 11-12-2017 Patient encounter [...] Td Vaccines (6 - Td or Tdap) [facility] Start: 10-26-2024 Adult BMI Screening Adult BMI Screen ing [facility] Start: 10-16-2024 Adult BMI Follow Up Plan Adult BMI Follow Up Plan [facility] Start: 10-16-2024 Adult BMI Screening Adult BMI Screen ing [facility] Start: 10-16-2024 Tobacco Screening Tobacco Screening [facility] Start: 03-05-2024 End: 03-05-2024 Patient encounter procedure 03/05/2024 3:00 PM EDT Office Visit [facility] [address] [place] [id number] Nena Madden MD [address] [place] [address], [address] [place] [address] [facility] Start: 02-22-2024 COVID-19 Vaccine ( season) COVID-19 Vaccine ( season) [facility] Start: 10-29-2023 End: 10-29-2023 Patient encounter procedure 10/29/2023 6:45 AM EDT Appointment [facility] [address] [place] [id number] Nena Madden MD [address] [place] [address], [address] [place] [address] [facility] Start: 10-17-2023 End: 10-16-2024 MR Foot - left WO and W contrast IV MR foot left with and without contrast Imaging Routine Neuritis of left foot Chronic pain in left foot Expected: 10/17/2023, Expires: 10/16/2024 [employer] Work Phone: Comment on above: Expected: 10/17/2023 , Expires: 10/16/2024 Start: 04-22-2023 Depression [facility] Start: 04-10-2023 Adult BMI Follow Up Plan Adult [facility] Start: 02-21-2023 COVID-19 Vaccine ( season) COVID-19 Vaccine ( season) [facility] [email or web address] [facility] Immunizations Immunization Date Immunization Notes Care Provider Fa cility 05-24-2021 COVID-19, mRNA, LNP- S, PF, 100mcg/0.5mL Dose Nena Madden MD [facility] Phone[facility] NEGATED: Highlighted row has not occurred!10-05-2017 measles, mumps and rubella virus vaccine Nena Madden MD Work Phone: [facility] Comment on above: Deferred: Other - IM MUNE NEGATED: Highlighted row has not occurred!10-05-2017 tetanus toxoid, reduced diphtheria toxoid, and acellular pertussis vaccine, adsorbed Nena Madden MD Work [facility] NEGATED: Highlighted row has not occurred!10-05-2017 varicella virus vaccine Nena Madden MD [facility] NEGATED: Highlighted row has not occurred!10-03-2017 tetanus toxoid, reduced diphtheria toxoid, and acellular pertussis vaccine, adsorbed Nena Madden MD [facility] Comment on above: Deferred: - PT HAD W ITH LAST Payers Date Payer Category Payer Unknown 2003 Medicaid [place] [employer] [place] [employer] [id number] 2003-Present [phone] [address] [place] [address] [id number] 2003 Medicaid [facility] [id number] 1994 Unknown [id number] 1994 Unknown [id number] 1994 Unknown [id number] 1994 Unknown [id number] 1994 Unknown [id number] [id number] 1994 Unknown [id number] 1994 Unknown [id number] [id number] 1994 Unknown [id number] 1994 Unknown [id number] [id number] 1994 Unknown [id number] 1959 Unknown [id number] Social History Date Type Detail Facility Start: Smoker [facility] Start: 04-10-2022 Tobacco smoking stat us TXIS Never smoked tobacco [facility] Start: 04-10-2022 Tobacco use and exposure Smoke less tobacco non-user [facility] Start: 10-17-2023 End: 06-28-2024 Alcoholic beverage intake Current non-drinker of alcohol (finding) [facility] Start: 01-19-2019 End: 07-11-2020 History of Social function [facility] Start: 01-19-2019 End: 07-11-2020 Social connection and isolation panel [facility] Frequency of Communication with Friends and Family Three times a week [facility] Start: 01-19-2019 Education 12 [facility] Start: 1995 Sex assigned at Not on file P [facility] Start: 01-26-2015 Sex Female (finding) [facility] History of Present illness Narrative 03-05-2024 Nena Madden MD - 03/05/2024 3:00 PM EDT Note Date & Type Note Facility 03-05-2024 History of Present illness Narrative Images from the original note were not included. [address] [place] [facility] [address] Patient: Wale Delgado Date of : 1995 Encounter Date: 03/05/2024 Patient Care Team: No Pcp No Pcp as PCP - General (Family Medicine) Patient Location: (Home) Patient Consent obtained: yes, (Verbal) Prior to beginning this clinical portion of this visit, the patient/family has verbally consented to the use of this telemedicine E-visit and initiated the contact. 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 She attributed worsening of [...] 8 2 PTSD: No data to display Bude: No data to display MELANIE-10: No data [...] 10/03/2017 Performed by Kam Tyson MD at [facility] HYSTERECTOMY TUBAL LIGATION Current Outpatient Medications [...] normal. Tongue protrudes midline. Cranial Nerve comments: Dugway-Hallpike maneuver is negative bilaterally.. Motor: Muscle Bulk: [...] 6 months Nena Madden MD Vascular Neurologist [facility] Neurology ([facility]) I have personally participated in the care of this patient. I have reviewed all pertinent clinical information, including history, physical exam, investigation results and plan. I spent 25 minutes caring for this patient, and more than 50% of that time was spent on counseling the patient/machinist job setter/care team and coordinating care. Important Notice: [...] patient needs it. documented in this encounter [facility] History of Present illness Narrative 10-17-2023 Nena Madden MD - 10/17/2023 12:00 PM EDT Note Date & Type Note Facility 10-17-2023 History of Present illness Narrative Images from the original note were not included. [address] [facility] [id number] Patient: Wale Delgado Date of : 1995 [...] 8 2 PTSD: No data to display Bude: No data to display MELANIE-10: No data [...] 10/03/2017 Performed by Kam Tyson MD at [facility] HYSTERECTOMY TUBAL LIGATION Current Outpatient Medications [...] has to walk a lot as a student advisor. On examination she seems to have developed [...] 2-3 months Nena Madden MD Vascular Neurologist [facility] Neurology ([facility]) I have personally participated in the care of this patient. I have reviewed all pertinent clinical information, including history, physical exam, investigation results and plan. I spent 30 minutes caring for this patient, and more than 50% of that time was spent on counseling the patient/machinist job setter/care team and coordinating care. Important Notice: This note was created with the assistance of a speech recognition program. While intending to generate a timely document that accurately reflects the content of the encounter, no guarantee can be provided that every grammatical or spelling mistake has been or will be identified or corrected. Thank you for your understanding. documented in this encounter [facility] Evaluation note Note Date & Type Note Facility Evaluation note Diagnosis Neuritis of left foot- Primary Nerve pain Unspecified neuralgia, neuritis, and radiculitis Depression, unspecified depression type Anxiety Anxiety state, unspecified Chronic pain in left foot Gait instability Abnormality of gait documented in this encounter [facility] Evaluation note Note Date & Type Note Facility Evaluation note Diagnosis Neuritis of left foot- Primary Nerve pain Unspecified neuralgia, neuritis, and radiculitis Depression, unspecified depression type Anxiety Anxiety state, unspecified Chronic pain in left foot Hip pain Pain in joint, pelvic region and thigh Gait instability Abnormality of gait documented in this encounter [facility] Instructions Note Date & Type Note Facility Instructions Not on filedocumented in this en counter [facility] Instructions Note Date & Type Note Facility Instructions Not on filedocumented in this en counter [facility] Summary Purpose Family History No Family [...] No sex, (more content not included)... Note [facility] 2SOUT Clinical Discharge Summary PERSON INFORMATION Name WALE DELGADO Age 22 Years 89 Sex FEMALE Language [place] PCP Provider, Unlisted Marital Status Single Med Service Observation Acct# Arrival 04/28/18 05:59:59 Visit Reason SURGERY - TOTAL VAGINAL HYSTERECTOMY Acuity [facility] Address: [address] [facility] [address] Comment: PROVIDER INFORMATION VITALS INFORMATION Vital Sign [...] MR foot left with and without contrast Nean Madden MD [address] [place] [address], [address] [address] [address] Phone: [phone] Referral ID Status Reason Start Date Expiration Date V isits Requested Visits Authorized [id number] Pending Review 10/17/2023 10/16/2024 1 1 Additional Source Comments INFORMATION SOURCE (unrecogn ized section and content) DATE CREATED AUTHOR 03/29/2019 [facility] DATE CREATED AUTHOR AUTHOR'S ORGANIZ ATION 03/29/2019 [facility] DATE CREATED AUTHOR AUTHOR'S ORGANIZ ATION 03/07/2024 [facility] DATE CREATED AUTHOR AUTHOR'S ORGANIZ ATION 01/10/2025 [facility] Care Teams (unrecognized sec tion and content) Financial Investment Manager Relationship Specialty Start Date End Date No Pcp, [place] [address] PCP - General Family Medicine 08/04/23 Financial Investment Manager Relationship Specialty Start Date End Date No Pcp, [place] [address] PCP - General Family Medicine 08/04/23 Reason [...] BE BASED ON THE PRIMARY CLINICAL RECORDS. [facility]. provides no warranty or guarantee of the accuracy or completeness of information in this document.
--- NOTE | 2025-02-10 14:57 | P.CN_ITS ---
Consult Note: HPI Data of Consult Patient: known to practice within the last 3 years Consult date: 02/10/25 Requesting Physician: Kelly Woodall NP Primary Care Provider: Non-Staff Physician, Family Provider: BEN Consult Narrative Reason for consult: left foot pain Narrative: 29yof who presents for evaluation. has had left foot pain >7 years after dropping gallon of milk on it. has undergone therapy and various home exercise programs, without benefit. uses meloxicam, with some benefit. recently saw foot surgeon, who did not recommend surgery and suggested diagnosis of crps. endorses pain to touch, swelling, color changes, temperature changes, loss of hair growth of left foot. since last visit has found improvement post left lumbar sympathetic nerve block x2. notes moderate pain relief with improvement in hypersensitivty, temperature changes, and color changes. cc:: CC: Kelly Woodall NP Review of Systems ROS Status of ROS 10 or more systems reviewed and unremark able except as noted in history and below [facility] Medical History (Updated 01/25/25 @ 11:04 by Celine Tatum RN) Skin lesion ?L98.9 - Disorder of the skin and subcutaneous tissue, unspecified (ICD-10) Arthritis ?M19.90 - Unspecified osteoarthritis, unspecified site (ICD-10) Acid reflux ?K21.9 - Gastro-esophageal reflux disease without esophagitis (ICD-10) Asthma ?J45.909 - Unspecified asthma, uncomplicated (ICD-10) Surgical History (Updated 01/25/25 @ 11:04 by Celine Tatum RN) Hx of cholecystectomy ?Z90.49 - Acquired absence of other specified parts of digestive tract (ICD- 10) History of hysterectomy ?Z90.710 - Acquired absence of both cervix and uterus (ICD-10) Social History Little interest or pleasure in doing things: not at all Feeling down, depressed, or hopeless: not at all Meds Home Medications and Allergies Home Medications ?Medication ?Instructions ?Recorded ?Confirmed ?Type gabapentin 300 mg capsule 300 mg PO TID 01/03/2501/31 History meloxicam 15 mg tablet 15 mg PO DAILY 01/03/2501/21 History sumatriptan succinate 25 mg tablet See Rx Instructions PO .COMPLEX 01/03/25 01/31/25 History Allergies Allergy/AdvReac Type Severity Reaction Status Date / Time No Known Drug Allergies Allergy Verified 01/31/25 07:58 Exam Narrative Exam Narrative: Psych-alert and oriented x 3.? Attentive and appropriate, constitutionally normal, displays normal mood and affect per situation.? There are no obvious deficits in memory, reasoning, or intellect. Examination of the left lower extremity reveals notable hyperpathia and allodynia.? Notable atrophy and diffuse weakness present in the extremity.? There is notable shiny skin with hair loss and abnormal hair growth denoting trophic changes presently.? Asymmetric color and temperature changes are present which denotes sudomotor changes.? Decreased range of motion and strength is noted in the extremity.? Coordination remains intact.? Gait remains non-antalgic. Assessment and Plan Assessment and Plan (1) Complex regional pain syndrome i of left lower limb: Plan 29yof who presents for evaluation. failed conservative measures, as noted. suspect that given her mechanism of injury and constellation of symptoms, she has developed left lower extremity crps. discussed that given her failure to respond to more conservative measures she may benefit from spinal cord stimulation. handout provided. will monitor pts long term care pharmacist response to LSB at this time. start transdermal therapeutics cream 6a 3-4x/day to affected area. can f/u with podiatrsist and consider joint injections for localized 1st metatarsal edema and pain. f/u 3 months, sooner if needed
== END 2025-02-10 14:34 | disposition home or self-care (01) ==
LOC: PM 14:33
PROVIDERS: Visit Provider Nurse Practitioner
DX: G90.522 Complex regional pain syndrome I of left lower limb (principal)
CPT/HCPCS: G0463